=== PATIENT | male | born 1935 | race Caucasian/White ===

== ENCOUNTER 2016-12-13 08:00 | Outpatient (CLI) | payer MEDICARE, OTHER | END 2016-12-13 08:01 | disposition home or self-care (01) | DX: I25.10 Atherosclerotic heart disease of native coronary artery without angina pectoris (principal); E11.65 Type 2 diabetes mellitus with hyperglycemia; Z79.899 Other long term (current) drug therapy ==

== ENCOUNTER 2017-01-13 11:33 | Outpatient (CLI) | payer MEDICARE, OTHER | END 2017-01-13 11:34 | disposition home or self-care (01) | DX: J44.9 Chronic obstructive pulmonary disease, unspecified (principal) ==

== ENCOUNTER 2017-03-03 12:05 | Outpatient (CLI) | payer MEDICARE, OTHER | END 2017-03-03 12:06 | disposition home or self-care (01) | DX: M51.36 Other intervertebral disc degeneration, lumbar region (principal); M47.816 Spondylosis without myelopathy or radiculopathy, lumbar region ==

== ENCOUNTER 2017-06-05 09:19 | Outpatient (CLI) | payer MEDICARE, OTHER ==
[2017-06-05 12:06] LABS: HEMOGLOBIN A1C 0.7 g/dL
== END 2017-06-05 09:20 | disposition home or self-care (01) ==
LOC: LAB.R 09:19
PROVIDERS: ATTEND Internal Medicine
DX: E11.9 Type 2 diabetes mellitus without complications (principal); Z79.899 Other long term (current) drug therapy
CPT/HCPCS: 83036

== ENCOUNTER 2017-12-19 08:00 | Outpatient (CLI) | payer MEDICARE, OTHER | END 2017-12-19 08:01 | disposition home or self-care (01) | LOC: LAB.R 08:00 | PROVIDERS: ATTEND Internal Medicine | DX: I25.10 Atherosclerotic heart disease of native coronary artery without angina pectoris (principal) | CPT/HCPCS: 84484 ==

== ENCOUNTER 2018-01-01 08:00 | Outpatient (CLI) | payer MEDICARE, OTHER ==
[2018-01-01 14:50] LABS: BASOPHILS % (AUTO) 0.5 %; EOSINOPHILS # (AUTO) 0.1 10^3/uL (0.0-0.7); EOSINOPHILS % (AUTO) 0.8 %; HGB - HEMOGLOBIN 14.2 g/dL (14.0-18.0); MEAN CORPUSCULAR HEMOGLOBIN 29.2 pg (27.0-31.0); MEAN CORPUSCULAR HGB CONC 33.8 g/dL (32.0-36.0); MEAN CORPUSCULAR VOLUME 86.4 fL (80.0-94.0); MONOCYTES # (AUTO) 0.5 10^3/uL (0.0-1.0); MONOCYTES % (AUTO) 6.5 %; NEUTROPHILS # (AUTO) 5.8 10^3/uL (1.5-6.6); NEUTROPHILS % (AUTO) 78.2 %; PLT - PLATELET COUNT 254 10^3/uL (130-450); RED BLOOD COUNT 4.86 10^6/uL (4.70-6.10); RED CELL DISTRIBUTION WIDTH 13.3 % (12.0-15.0); WHITE BLOOD COUNT 7.4 x10^3/uL (4.8-10.8)
[2018-01-01 15:01] LABS: ALBUMIN 4.3 g/dL (3.2-5.5); ALBUMIN/GLOBULIN RATIO 1.5 (1.0-2.2); ALKALINE PHOSPHATASE 50 IU/L (42-121); ALT ALANINE AMINOTRANSFERASE 16 IU/L (10-60); AST ASPARTATE AMINOTRANSFERASE 23 IU/L (10-42); BUN - BLOOD UREA NITROGEN 17 mg/dL (6-20); CALCIUM 9.2 mg/dL (8.5-10.3); CARBON DIOXIDE - CO2 27 mmol/L (21-32); CHLORIDE 99 mmol/L (101-111); CHOLESTEROL 145 mg/dL; CREATININE 1.1 mg/dL (0.6-1.2); GFR - MDRD 64 (>89); GLUCOSE 143 mg/dL (70-100); HDL CHOLESTEROL 71 mg/dL; LDL CHOLESTEROL,CALCULATED 55 mg/dL; LDL/HDL RATIO 0.8 (<3.6); SODIUM 136 mmol/L (135-145); TOTAL PROTEIN 7.1 g/dL (6.7-8.2); VLDL CHOLESTEROL 19 mg/dL
[2018-01-01 15:34] LABS: HB2 TOTAL 16.3 g/dL; HEMOGLOBIN A1C 0.8 g/dL; HEMOGLOBIN A1C % 6.6 % (4.6-6.2)
== END 2018-01-01 08:01 | disposition home or self-care (01) ==
LOC: LAB.R 08:00
PROVIDERS: ATTEND Internal Medicine
DX: E11.9 Type 2 diabetes mellitus without complications (principal); I10 Essential (primary) hypertension; I25.10 Atherosclerotic heart disease of native coronary artery without angina pectoris; Z79.899 Other long term (current) drug therapy
CPT/HCPCS: 80053; 80061; 83036; 83721; 85025

== ENCOUNTER 2018-01-29 08:46 | Outpatient (CLI) | payer MEDICARE, OTHER ==
[2018-01-29] MEDS: ADENOSINE 60 MG/20 ML VIAL IVP ONE ×2 (11:00→11:47)
--- NOTE | 2018-01-29 13:46 | CARDIAC PROCEDURE NOTE ---
DATE OF SERVICE: 01/29/2018 Physician: BRIAN Callahan PLEASE REVIEW BLANK AREAS - HAD BEEN FLAGGED TO VERIFY "PVC & PVC ECTOPY" AT FIRST BLANK, (ONE NEED TO BE PAC?) REFERENCED PAC'S & PVC BOTH IN FINAL IMPRESSION AREA PRIMARY CARE PHYSICIAN: Dr. Patricio Jean WOOD FLOUR MILLER: Dr. Rony Patel PROCEDURE: Pharmacologic cardiac stress test. PROCEDURE SYMPTOMS: Chest pain and shortness of air. CARDIAC RISK FACTORS INCLUDE: Known coronary artery disease. CLINICAL HISTORY: An 82-year-old male with known coronary artery disease and coronary stents. He denies any current symptoms. There were no medications held. INITIAL RESTING VITAL SIGNS: BP 134/64, heart rate 57, height 71 inches, weight 157 pounds, BMI 21.9. PROCEDURE AND FINDINGS: Patient identity and date verified, consent signed, pharmaceutical check. Pharmacologic stress testing was performed with adenosine at a dose of 140 mcg/kg/min over 6 minutes. The heart rate increased to 80 beats per minute from the infusion. Blood pressure response was normal during the stress procedure. The patient developed mild infusion related symptoms, which include flushing, brief shoulder and chest pain. The symptoms resolved spontaneously. The resting ECG demonstrated normal sinus rhythm with no ST changes and nonspecific T-wave changes. Maximal ST-segment depression with stress was zero. There was rare PVC and PAC ectopy. FINAL IMPRESSIONS 1. Negative electrocardiogram for ischemia in the setting of vasodilator stress. 2. Nondiagnostic stress test for angina. 3. Rare premature atrial contractions and premature ventricular contractions. 4. Await myocardial perfusion report. TD: 01/29/2018 12:00 FATIMAH
[2018-01-29 16:44] VITALS: BP 134/64
--- NOTE | 2018-01-30 08:39 | Nuclear Medicine Report ---
EXAM: SINGLE-ISOTOPE PHARMACOLOGICAL STRESS TEST WITH ADENOSINE. SINGLE-ISOTOPE AND SAME-DAY REST/STRESS MY OCARDIAL PERFUSION SCANS WITH TOMOGRAPHIC IMAGING, QUANTITATIVE ANALYSIS, WALL MOTION ANALYSIS AND CA LCULATION OF EJECTION FRACTION. EXAM DATE: 01/29/2018 02:05 PM. CLINICAL HISTORY: CAD. COMPARISON: None. TECHNIQUE: Following the intravenous administration of 9.5 mCi of Tc-99m sestamibi, a rest myocardial perfusion scan was done with tomography. Motion correction was applied when appropriate. After a delay of several hours on the same day, a pharmacological stress was performed with the infus ion of 60 mg of adenosine. According to protocol, 40.8 mCi of Tc-99m sestamibi was injected for stres s myocardial perfusion scan. Stress myocardial perfusion was done with tomography without attenuation correction. Motion correction was applied when appropriate. Gated tomographic images were obtained for wall motion analysis and computation of left ventricular ejection fraction. FINDINGS: No convincing fixed or reversible perfusion defects are evident. No focal wall motion abnormalities are evident. The left ventricular end-diastolic volume is 78 cc. The left ventricular end-systolic volume is 26 cc . The left ventricular ejection fraction is calculated to be 66%. IMPRESSION: 1. No scintigraphic findings to indicate myocardial ischemia. Negative for infarct. 2. Normal left ventricular ejection fraction of 66%. 3. Normal segmental and global wall motion. 4. Normal left ventricular cavity size, no change with stress. [facility] Referring Provider Line: [phone] SITE ID: [id number]
== END 2018-01-29 08:47 | disposition home or self-care (01) ==
LOC: DI 08:46
PROVIDERS: ATTEND Internal Medicine
DX: I25.10 Atherosclerotic heart disease of native coronary artery without angina pectoris (principal)
CPT/HCPCS: 78452; 93017; A9500; J0153

== ENCOUNTER 2019-04-15 08:08 | Outpatient (CLI) | payer MEDICARE, OTHER ==
[2019-04-15 08:34] LABS: BASOPHILS # (AUTO) 0.1 10^3/uL (0.0-0.1); BASOPHILS % (AUTO) 1.3 %; EOSINOPHILS # (AUTO) 0.1 10^3/uL (0.0-0.7); EOSINOPHILS % (AUTO) 1.8 %; HGB - HEMOGLOBIN 12.6 g/dL (14.0-18.0); LYMPHOCYTES # (AUTO) 1.1 10^3/uL (1.5-3.5); MEAN CORPUSCULAR HEMOGLOBIN 27.1 pg (27.0-31.0); MEAN CORPUSCULAR HGB CONC 32.7 g/dL (32.0-36.0); MEAN PLATELET VOLUME 7.9 fL (7.4-11.4); MONOCYTES # (AUTO) 0.5 10^3/uL (0.0-1.0); MONOCYTES % (AUTO) 8.3 %; NEUTROPHILS # (AUTO) 4.6 10^3/uL (1.5-6.6); NEUTROPHILS % (AUTO) 71.6 %; PLT - PLATELET COUNT 235 10^3/uL (130-450); RED BLOOD COUNT 4.64 10^6/uL (4.70-6.10); RED CELL DISTRIBUTION WIDTH 15.4 % (12.0-15.0); WHITE BLOOD COUNT 6.5 x10^3/uL (4.8-10.8)
[2019-04-15 08:51] LABS: ALBUMIN/GLOBULIN RATIO 1.3 (1.0-2.2); ALKALINE PHOSPHATASE 50 IU/L (42-121); ALT ALANINE AMINOTRANSFERASE 15 IU/L (10-60); AST ASPARTATE AMINOTRANSFERASE 19 IU/L (10-42); BILIRUBIN,TOTAL 1.3 mg/dL (0.2-1.0); BUN - BLOOD UREA NITROGEN 19 mg/dL (6-20); CALCIUM 9.4 mg/dL (8.5-10.3); CARBON DIOXIDE - CO2 27 mmol/L (21-32); CHLORIDE 102 mmol/L (101-111); CHOLESTEROL 158 mg/dL; CREATININE 1.1 mg/dL (0.6-1.2); GFR - MDRD 64 (>89); GLUCOSE 139 mg/dL (70-100); HDL CHOLESTEROL 78 mg/dL; LDL CHOLESTEROL,CALCULATED 65 mg/dL; LDL/HDL RATIO 0.8 (<3.6); SODIUM 138 mmol/L (135-145); TOTAL PROTEIN 7.1 g/dL (6.7-8.2); VLDL CHOLESTEROL 15 mg/dL
[2019-04-15 08:52] LABS: HB2 TOTAL 13.2 g/dL; HEMOGLOBIN A1C 0.72 g/dL; HEMOGLOBIN A1C % 7.1 % (4.6-6.2)
== END 2019-04-15 08:09 | disposition home or self-care (01) ==
LOC: LAB 08:08
PROVIDERS: ATTEND Family Medicine
DX: E11.8 Type 2 diabetes mellitus with unspecified complications (principal); K21.9 Gastro-esophageal reflux disease without esophagitis; I10 Essential (primary) hypertension; I25.10 Atherosclerotic heart disease of native coronary artery without angina pectoris
CPT/HCPCS: 36415; 80053; 80061; 83036; 83721; 84443; 85025

== ENCOUNTER 2019-08-18 14:08 | Outpatient (CLI) | payer MEDICARE, OTHER ==
--- NOTE | 2019-08-19 15:58 | XRAY Report ---
Reason: DYSPNEA Procedure Date: 08/18/2019 Accession Number: [id number] / [id number] Procedure: [facility] - Chest 2 View X-Ray CPT Code: 07565 FULL RESULT: EXAM: CHEST RADIOGRAPHY EXAM DATE: 08/18/2019 02:29 PM. CLINICAL HISTORY: Dyspnea. COMPARISON: CHEST 2 VIEW PA/LAT 01/13/2017 12:01 PM. TECHNIQUE: 2 views. FINDINGS: Lungs/Pleura: There is moderate to severe emphysema in the lungs bilaterally, slightly to mildly worsening since last exam. In the lateral view, there is again a nodular opacity, 1.3 cm in diameter in the anterior mid to lower lung zone superimposed with a shadow, unchanged and cannot be well seen in the PA view. No new focal opacities evident. No pleural effusion. No pneumothorax. Mediastinum: Heart and mediastinal contours are unremarkable. Other: There are chronic mild to severe compression fractures at T8, T9, T10, T11, greater at the T9, no significant interval changes. IMPRESSION: 1. Moderate to severe emphysema in the lungs, COPD, bilaterally, worsening since last exam; negative for new pulmonary opacity or acute cardiopulmonary process. 2. No significant interval changes of the prior nodular opacity, 1.3 cm, only visible in the lateral view, in the right middle lobe or in the lingula, versus a chest wall nodule; if clinically warranted, further assessment by chest CT without IV contrast is recommended. [facility]
== END 2019-08-18 23:59 | disposition home or self-care (01) ==
LOC: DI.WCP 14:08
PROVIDERS: ATTEND Family Medicine
DX: J43.9 Emphysema, unspecified (principal); R91.8 Other nonspecific abnormal finding of lung field
CPT/HCPCS: 71046

== ENCOUNTER 2019-10-26 08:02 | Outpatient (CLI) | payer MEDICARE, OTHER ==
[2019-10-26 08:41] LABS: BASOPHILS % (AUTO) 0.6 %; EOSINOPHILS # (AUTO) 0.2 10^3/uL (0.0-0.7); HGB - HEMOGLOBIN 12.1 g/dL (14.0-18.0); LYMPHOCYTES # (AUTO) 1.5 10^3/uL (1.5-3.5); LYMPHOCYTES % (AUTO) 21.6 %; MEAN CORPUSCULAR HEMOGLOBIN 26.7 pg (27.0-31.0); MEAN CORPUSCULAR HGB CONC 30.7 g/dL (32.0-36.0); MEAN CORPUSCULAR VOLUME 86.8 fL (80.0-94.0); MEAN PLATELET VOLUME 10.1 fL (7.4-11.4); MONOCYTES # (AUTO) 0.6 10^3/uL (0.0-1.0); NEUTROPHILS # (AUTO) 4.6 10^3/uL (1.5-6.6); NEUTROPHILS % (AUTO) 65.7 %; PLT - PLATELET COUNT 279 10^3/uL (130-450); RED BLOOD COUNT 4.54 10^6/uL (4.70-6.10); RED CELL DISTRIBUTION WIDTH 14.3 % (12.0-15.0)
[2019-10-26 09:11] LABS: ALBUMIN 4.4 g/dL (3.2-5.5); ALBUMIN/GLOBULIN RATIO 1.5 (1.0-2.2); ALKALINE PHOSPHATASE 57 IU/L (42-121); ALT ALANINE AMINOTRANSFERASE 15 IU/L (10-60); AST ASPARTATE AMINOTRANSFERASE 18 IU/L (10-42); BILIRUBIN,TOTAL 1.1 mg/dL (0.2-1.0); BUN - BLOOD UREA NITROGEN 26 mg/dL (6-20); CALCIUM 9.3 mg/dL (8.5-10.3); CARBON DIOXIDE - CO2 27 mmol/L (21-32); CHLORIDE 101 mmol/L (101-111); CHOL/HDL RATIO 2.1 (<5.0); CHOLESTEROL 144 mg/dL; CREATININE 1.3 mg/dL (0.6-1.2); GFR - MDRD 52 (>89); GLUCOSE 149 mg/dL (70-100); HDL CHOLESTEROL 69 mg/dL; LDL CHOLESTEROL,CALCULATED 62 mg/dL; LDL/HDL RATIO 0.9 (<3.6); SODIUM 138 mmol/L (135-145); TOTAL PROTEIN 7.4 g/dL (6.7-8.2); VLDL CHOLESTEROL 13 mg/dL
[2019-10-26 09:22] LABS: HB2 TOTAL 12.7 g/dL; HEMOGLOBIN A1C 0.66 g/dL; HEMOGLOBIN A1C % 6.9 % (4.6-6.2)
== END 2019-10-26 08:03 | disposition home or self-care (01) ==
LOC: LAB 08:02
PROVIDERS: ATTEND Family Medicine
DX: E11.49 Type 2 diabetes mellitus with other diabetic neurological complication (principal); G47.33 Obstructive sleep apnea (adult) (pediatric); I10 Essential (primary) hypertension; I25.10 Atherosclerotic heart disease of native coronary artery without angina pectoris; Z79.899 Other long term (current) drug therapy
CPT/HCPCS: 36415; 80053; 80061; 83036; 83721; 84443; 85025

== ENCOUNTER 2019-12-18 23:09 | Outpatient (CLI) | payer MEDICARE, OTHER | END 2019-12-18 23:10 | disposition critical access hospital (66) | LOC: EMS 23:09 | PROVIDERS: ATTEND Surgery | DX: R56.9 Unspecified convulsions (principal); R41.82 Altered mental status, unspecified | CPT/HCPCS: A0425; A0427 ==

== ENCOUNTER 2019-12-18 23:22 | Inpatient (IN) | payer MEDICARE, OTHER ==
--- NOTE | 2019-12-18 23:32 | ED Physician Documentation ---
History of Present Illness - Stated complaint Stated Complaint: SZ - Chief complaint Chief Complaint: Neuro - History obtained from History obtained from: Family, EMS (The patient's 84-year-old male who is unresponsive but he is breathing and has a pulse brought in by EMS EMS and the patient's report that tonight he had an episode in bed where he sat up and then started shaking violently the reports that he did urinate himself she denies any falls or trauma denies any history of previous similar episodes she is unsure if he is anticoagulated or not she denies any history of headaches rashes or seizures. The remainder the history is unknown.) Review of Systems Unable to obtain: Unresponsive PD PAST MEDICAL HISTORY - Past Medical History Cardiovascular: Hypertension, High cholesterol, Coronary artery disease, Angina Endocrine/Autoimmune: Type 2 diabetes GI: GERD HEENT: Glaucoma Musculoskeletal: Other - Past Surgical History Cardiovascular: Coronary stent HEENT: Cataracts - Present Medications Home Medications: Ambulatory Orders Medication Instructions Recorded Confirmed Aspirin [Aspir 81] 81 mg ORAL DAILY 12/13/14 12/18/19 Enalapril [Vasotec] 10 mg ORAL DAILY 12/13/14 12/18/19 Hydrochlorothiazide 25 mg ORAL DAILY 12/13/14 12/18/19 Omeprazole 20 mg ORAL DAILY 12/13/14 12/18/19 Pravastatin Sodium 40 mg ORAL QPM 12/13/14 12/18/19 metFORMIN [Glucophage] 750 mg ORAL BID 12/13/14 12/18/19 - Allergies Allergies/Adverse Reactions: Allergies Allergy/AdvReac Type Severity Reaction Status Date / Time No Known Drug Allergies Allergy Verified 12/13/14 12:02 PD ED PE NORMAL - Vitals Vital signs reviewed: Yes - General General: Other (Unresponsive, does not follow commands no obvious signs of trauma) - HEENT HEENT: Atraumatic, PERRL, EOMI, Ears normal, Pharynx benign - Neck Neck: Supple, no meningeal sign, No bony TTP, Thyroid normal, No JVD, No bruit - Cardiac Cardiac: RRR, No murmur - Respiratory Respiratory: Clear bilaterally - Abdomen Abdomen: Normal bowel sounds, Soft, Non tender, Non distended - Back Back: No CVA TTP, No spinal TTP - Derm Derm: Normal color, Warm and dry, No rash - Extremities Extremities: No deformity, No tenderness to palpate, No edema - Neuro Neuro: Other (The patient is unresponsive he does respond To voice, he will follow basic commands but he is confused he is unable to answer the appropriate date or time or place but he does know his name.) Eye Opening: To Voice Motor: Obeys Commands Verbal: Confused GCS Score: 13 - Psych Psych: Normal mood, Normal affect Results - Vitals Vitals: Vital Signs - 24 hr 12/18/19 12/19/19 23:30 00:05 Temperature 36.9 C Heart Rate 76 86 Respiratory 20 28 H Rate Blood Pressure 183/91 H 160/89 H O2 Saturation 97 97 Oxygen O2 Source Nasal cannula Oxygen Flow Rate 2 - EKG (time done) 23:29 Rate: Other (EKG shows a rate of 75 OK interval 200 QRS 82 QTC 449 P waves are upright in leads I to III inverted in aVR there is no OK depression elevation in leads to aVR respectively normal axis poor R wave progression no acute ST segment elevation or depression no biphasic T waves no shortened OK are intervals otherwise its nonspecific EKG.) - Labs Labs: Laboratory Tests 12/19/19 12/19/19 12/19/19 00:17 00:29 00:29 WBC 10.9 H RBC 4.14 L Hgb 11.3 L Hct 36.3 L MCV 87.7 MCH 27.3 MCHC 31.1 L RDW 14.0 Plt Count 221 MPV 10.2 Neut # (Auto) 8.2 H Lymph # (Auto) 1.1 L [place] # (Auto) 0.5 Eos # (Auto) 1.0 H Baso # (Auto) 0.0 Absolute Nucleated RBC 0.00 Nucleated RBC % 0.0 PT 12.1 INR 1.1 APTT 27.5 Sodium Potassium Chloride Carbon Dioxide Anion Gap BUN Creatinine Estimated GFR (MDRD) Glucose Lactic Acid Calcium Phosphorus Magnesium Total Bilirubin AST ALT Alkaline Phosphatase Total Creatine Kinase Troponin I High Sens B-Natriuretic Peptide Total Protein Albumin Globulin Albumin/Globulin Ratio Lipase TSH Urine Color YELLOW Urine Clarity CLEAR Urine pH 6.0 Ur Specific [place] 1.015 Urine Protein 30 H Urine Glucose (UA) NEGATIVE Urine Ketones NEGATIVE Urine Occult Blood MODERATE H Urine Nitrite NEGATIVE Urine Bilirubin NEGATIVE Urine Urobilinogen 0.2 (NORMAL) Ur Leukocyte Esterase NEGATIVE Urine RBC 11-25 H Urine WBC 0-3 Ur Squamous Epith Cells RARE Squamous Urine Bacteria Rare Ur Microscopic Review INDICATED Urine Culture Comments NOT INDICATED Salicylates Urine Opiates Screen NEGATIVE Ur Oxycodone Screen NEGATIVE Urine Methadone Screen NEGATIVE Ur Propoxyphene Screen NEGATIVE Acetaminophen Ur Barbiturates Screen NEGATIVE Ur Tricyclics Screen NEGATIVE Ur Phencyclidine Scrn NEGATIVE Ur Amphetamine Screen NEGATIVE U Methamphetamines Scrn NEGATIVE U Benzodiazepines Scrn NEGATIVE Urine Cocaine Screen NEGATIVE U Cannabinoids Screen NEGATIVE Ethyl Alcohol 12/19/19 12/19/19 12/19/19 00:29 00:29 00:29 WBC RBC Hgb Hct MCV MCH MCHC RDW Plt Count MPV Neut # (Auto) Lymph # (Auto) [place] # (Auto) Eos # (Auto) Baso # (Auto) Absolute Nucleated RBC Nucleated RBC % PT INR APTT Sodium 136 Potassium 4.1 Chloride 104 Carbon Dioxide 17 L Anion Gap 15.0 H BUN 17 Creatinine 1.4 H Estimated GFR (MDRD) 48 L Glucose 184 H Lactic Acid 7.4 H* Calcium 9.0 Phosphorus 2.8 Magnesium 1.9 Total Bilirubin 0.9 AST 25 ALT 14 Alkaline Phosphatase 52 Total Creatine Kinase 37 Troponin I High Sens B-Natriuretic Peptide 249 H Total Protein 6.3 L Albumin 3.8 Globulin 2.5 Albumin/Globulin Ratio 1.5 Lipase 37 TSH Urine Color Urine Clarity Urine pH Ur Specific [place] Urine Protein Urine Glucose (UA) Urine Ketones Urine Occult Blood Urine Nitrite Urine Bilirubin Urine Urobilinogen Ur Leukocyte Esterase Urine RBC Urine WBC Ur Squamous Epith Cells Urine Bacteria Ur Microscopic Review Urine Culture Comments Salicylates < 6.0 Urine Opiates Screen Ur Oxycodone Screen Urine Methadone Screen Ur Propoxyphene Screen Acetaminophen < 10 L Ur Barbiturates Screen Ur Tricyclics Screen Ur Phencyclidine Scrn Ur Amphetamine Screen U Methamphetamines Scrn U Benzodiazepines Scrn Urine Cocaine Screen U Cannabinoids Screen Ethyl Alcohol < 5.0 12/19/19 12/19/19 00:29 00:29 WBC RBC Hgb Hct MCV MCH MCHC RDW Plt Count MPV Neut # (Auto) Lymph # (Auto) [place] # (Auto) Eos # (Auto) Baso # (Auto) Absolute Nucleated RBC Nucleated RBC % PT INR APTT Sodium Potassium Chloride Carbon Dioxide Anion Gap BUN Creatinine Estimated GFR (MDRD) Glucose Lactic Acid Calcium Phosphorus Magnesium Total Bilirubin AST ALT Alkaline Phosphatase Total Creatine Kinase Troponin I High Sens 11.3 B-Natriuretic Peptide Total Protein Albumin Globulin Albumin/Globulin Ratio Lipase TSH 2.11 Urine Color Urine Clarity Urine pH Ur Specific [place] Urine Protein Urine Glucose (UA) Urine Ketones Urine Occult Blood Urine Nitrite Urine Bilirubin Urine Urobilinogen Ur Leukocyte Esterase Urine RBC Urine WBC Ur Squamous Epith Cells Urine Bacteria Ur Microscopic Review Urine Culture Comments Salicylates Urine Opiates Screen Ur Oxycodone Screen Urine Methadone Screen Ur Propoxyphene Screen Acetaminophen Ur Barbiturates Screen Ur Tricyclics Screen Ur Phencyclidine Scrn Ur Amphetamine Screen U Methamphetamines Scrn U Benzodiazepines Scrn Urine Cocaine Screen U Cannabinoids Screen Ethyl Alcohol PD MEDICAL DECISION MAKING - ED course Complexity details: other (I had a lengthy discussion with the patient's and other family members Regarding the patient's test results and the plan for admission here I spoke with the hospitalist Dr. Alberta Hernandez who Graciously agreed to admit this patient.) - Critical Care Time(min): 30 Time Includes: Direct patient care, Review records, Reassess patient, Document care, Coordinate care, Medical consult, Family consult for tx dec Data interpretation: Labs, Pulse ox, CXR, Prior EKG Procedures included in critical care time: Peripheral IV, Blood draw Procedures excluded from critical care time: EKG Departure - Departure Disposition: 66 [facility] DC/Xfer Clinical Impression: Seizure, Altered mental status, Seizures Condition: Fair
[2019-12-18] MEDS ORDERED: levETIRAcetam INJ 1,500 MG in SODIUM CHLORIDE 0.9% 100ML 100 ML IV STA (23:35)
[2019-12-18] MEDS ORDERED: SODIUM CHLORIDE 0.9% 1,000 ML IV ONE (23:35)
[2019-12-18] MEDS ORDERED: LORazepam 2 MG/ML VIAL ONE (23:58)
[2019-12-19] MEDS ORDERED: LORazepam 2 MG/ML VIAL IVP STA (00:10)
--- NOTE | 2019-12-19 00:16 | XRAY Report ---
Reason: AMS Procedure Date: 12/19/2019 Accession Number: [id number] / [id number] Procedure: XR - Chest 1 View X-Ray CPT Code: 59279 Final Report FULL RESULT: EXAM: CHEST RADIOGRAPHY EXAM DATE: 12/18/2019 11:50 PM. CLINICAL HISTORY: Altered mental status. Multiple falls. COMPARISON: CHEST 2 VIEW 08/18/2019 2:08 PM. TECHNIQUE: 1 view. FINDINGS: Lungs/Pleura: No focal opacities evident. No pleural effusion. No pneumothorax. Mediastinum: Within exam limitations, the cardiomediastinal contour is normal. Other: No fracture identified. IMPRESSION: Normal single view chest. [facility]
--- NOTE | 2019-12-19 00:18 | CT Report ---
Reason: AMS Procedure Date: 12/19/2019 Accession Number: [id number] / [id number] Procedure: CT - HEAD WO CPT Code: Final Report FULL RESULT: EXAM: CT HEAD EXAM DATE: 12/18/2019 11:58 PM. CLINICAL HISTORY: Altered mental status. History of multiple falls. COMPARISON: None. TECHNIQUE: Multiaxial CT images were obtained from the foramen magnum to the vertex. Reformats: Sagittal and coronal. IV contrast: None. In accordance with CT protocol optimization, one or more of the following dose reduction techniques were utilized for this exam: automated exposure control, adjustment of mA and/or KV based on patient size, or use of iterative reconstructive technique. FINDINGS: Parenchyma: No intraparenchymal hemorrhage. No evidence of mass, midline shift, or CT findings of infarction. Medel-white differentiation is distinct. There is mild to moderate chronic microvascular change in the periventricular white matter. Extraaxial Spaces: There is age appropriate generalized cerebral volume loss. No subdural or epidural collections identified. Ventricles: Mild ventricular prominence is in proportion to degree of atrophy. No definite hydrocephalus. Sinuses and Orbits: Imaged paranasal sinuses, orbits, and mastoids show no significant abnormality. Bones: No evidence of fracture or calvarial defect. Other: None. IMPRESSION: 1. No acute intracranial abnormality. 2. No intracranial mass, mass-effect, or hydrocephalus. 3. Age-appropriate senescent changes. [facility]
[2019-12-19 00:23] LABS: BILIRUBIN,URINE NEGATIVE (NEGATIVE); GLUCOSE, URINE (UA) NEGATIVE (NEGATIVE); KETONES,URINE (UA) NEGATIVE (NEGATIVE); LEUKOCYTE ESTERASE, URINE NEGATIVE (NEGATIVE); MUDS CUTOFF CONCENTRATIONS CUTOFF CONC BELOW:; NITRITE,URINE NEGATIVE (NEGATIVE); OCCULT BLOOD,URINE MODERATE (NEGATIVE); PROTEIN,URINE 30 mg/dL (NEGATIVE); UROBILINOGEN,URINE 0.2 (NORMAL) E.U./dL (NORMAL)
[2019-12-19 00:27] LABS: CLARITY,URINE CLEAR (CLEAR)
[2019-12-19 00:29] LABS: SQUAMOUS EPITHELIAL CELL,UR RARE Squamous (<= Few)
[2019-12-19 00:30] LABS: BACTERIA,URINE Rare /HPF (None Seen)
[2019-12-19 00:33] LABS: AMPHETAMINE SCREEN,URINE NEGATIVE (NEGATIVE); BENZODIAZEPINES SCREEN, URINE NEGATIVE (NEGATIVE); COCAINE SCREEN URINE NEGATIVE (NEGATIVE); METHADONE SCREEN, URINE NEGATIVE (NEGATIVE); METHAMPHETAMINES SCREEN, URINE NEGATIVE (NEGATIVE); OPIATE SCREEN, URINE NEGATIVE (NEGATIVE); OXYCODONE SCREEN, URINE NEGATIVE (NEGATIVE); PROPOXYPHENE SCREEN, URINE NEGATIVE (NEGATIVE); TRICYCLIC ANTIDEPRESSANT,URINE NEGATIVE (NEGATIVE)
[2019-12-19 00:37] LABS: BASOPHILS % (AUTO) 0.4 %; EOSINOPHILS % (AUTO) 8.8 %; HGB - HEMOGLOBIN 11.3 g/dL (14.0-18.0); LYMPHOCYTES # (AUTO) 1.1 10^3/uL (1.5-3.5); MEAN CORPUSCULAR HEMOGLOBIN 27.3 pg (27.0-31.0); MEAN CORPUSCULAR HGB CONC 31.1 g/dL (32.0-36.0); MEAN CORPUSCULAR VOLUME 87.7 fL (80.0-94.0); MEAN PLATELET VOLUME 10.2 fL (7.4-11.4); MONOCYTES # (AUTO) 0.5 10^3/uL (0.0-1.0); MONOCYTES % (AUTO) 4.7 %; NEUTROPHILS # (AUTO) 8.2 10^3/uL (1.5-6.6); NEUTROPHILS % (AUTO) 75.3 %; PLT - PLATELET COUNT 221 10^3/uL (130-450); RED BLOOD COUNT 4.14 10^6/uL (4.70-6.10); WHITE BLOOD COUNT 10.9 x10^3/uL (4.8-10.8)
[2019-12-19 00:42] LABS: INR 1.1 (0.8-1.2); PT - PROTHROMBIN TIME 12.1 secs (9.9-12.6)
[2019-12-19 00:49] LABS: PARTIAL THROMBOPLASTIN TIME 27.5 secs (24.9-33.3)
[2019-12-19 00:50] LABS: ACETAMINOPHEN < 10 ug/mL (10-30); ALBUMIN 3.8 g/dL (3.2-5.5); ALBUMIN/GLOBULIN RATIO 1.5 (1.0-2.2); ALKALINE PHOSPHATASE 52 IU/L (42-121); ALT ALANINE AMINOTRANSFERASE 14 IU/L (10-60); AST ASPARTATE AMINOTRANSFERASE 25 IU/L (10-42); BILIRUBIN,TOTAL 0.9 mg/dL (0.2-1.0); BUN - BLOOD UREA NITROGEN 17 mg/dL (6-20); CARBON DIOXIDE - CO2 17 mmol/L (21-32); CHLORIDE 104 mmol/L (101-111); CK- CREATINE KINASE 37 IU/L (22-269); CREATININE 1.4 mg/dL (0.6-1.2); GFR - MDRD 48 (>89); GLUCOSE 184 mg/dL (70-100); LIPASE 37 U/L (22-51); MAGNESIUM 1.9 mg/dL (1.7-2.8); PHOSPHORUS 2.8 mg/dL (2.5-4.6); SALICYLATE < 6.0 mg/dL; SODIUM 136 mmol/L (135-145); TOTAL PROTEIN 6.3 g/dL (6.7-8.2)
[2019-12-19] MEDS ORDERED: ACETAMINOPHEN 325 MG TABLET PO PRN (01:09)
[2019-12-19] MEDS ORDERED: SODIUM CHLORIDE FLUSH 0.9% 10 ML SYRINGE IVP PRN (01:09)
[2019-12-19] MEDS ORDERED: ONDANSETRON ODT 4 MG TABLET TL PRN (01:09)
[2019-12-19] MEDS ORDERED: ONDANSETRON 4 MG/2 ML VIAL IVP PRN (01:09)
[2019-12-19] MEDS ORDERED: amLODIPine 5 MG TABLET PO STA (01:11)
--- NOTE | 2019-12-19 01:16 | HISTORY & PHYSICAL EXAMINATION ---
Chief Complaint - Chief Complaint Chief Complaint: seizure at home History of Present Illness - Admitted From Admitted From:: Home/ER - History Obtained From [facility] History obtained from: Dr. Palma Exam Limitations: he is confused, sedated - History of Present Illness HPI Comment/Other: This is an elderly gentleman who lives in his own home with his and is hard of hearing, has diabetes, and age-related cognitive decline but now presents with new onset seizures tonight. He had 2 seizures at home.He was described as shaking and incontinent of urine. And then he had another seizure in the CT scanner here in our hospital and was witnessed. His last visit with his primary care provider was November 04, 2019. That complaint was "sleeping all the time". He then had a fall on that did not require intervention but had an MRI of the lumbar spine done December 13. He had severe L4-L5 central canal stenosis with compression of the nerve roots on the cauda equina. Severe right and moderate to severe left L4-L5 neural foraminal narrowing with slight compression of the exiting bilateral L4 nerve roots.His and son both describe a relatively sharp decline over the last month. Ever since he fell on , he is just not been himself mentally. Although they have noticed that he has been sleepier, less mobile over the last 6 months, this last month has been very noticeable. They usually take 3 [address] walks on the [place] in [place] on a daily basis. They stopped about a month and a half ago when the weather in the rain got too severe. This week he tried to walk a quarter of a mile down to their mailbox and back and he just could not make it. He was just exhausted. He has had less and less appetite this month. He is probably down to about 152 or 153 pounds from his usual 160 pounds. For the last 2 days has had increasing confusion. The family notices that he is trying to eat with incorrect utensils. Or he missed naming items. Seems more and more silent with less and less verbal skills per the .There is no antecedent fever, chills. He has no new medications. No headaches, etc. He did have diarrhea yesterday a couple of times. He was evaluated by in the emergency room and was afebrile at 36.9. Blood pressure mildly elevated at 183/91. 97% oxygen saturation on 2 L nasal cannula. He was sinus rhythm on telemetry. He was unresponsive, was not able to follow commands. Then he went to the CT scanner and had another dose of benzodiazepine. CT scan of the head shows no acute intracranial abnormality, no intracranial mass/mass-effect/hydrocephalus. Age-appropriate senescent changes. He does respond to voice and follow basic commands but he is confused and disoriented. He does know his name. White cell count is elevated at 10.9. No bandemia. Electrolytes have mild elevation of creatinine at 1.4. Baseline is 1.1 and down to 0.9. Lactic acid is 7.4 on a patient has had seizures and is on metformin. Random glucose is 184. Troponin is 11. BNP 249. TSH 2.11. Urinalysis had moderate occult blood, red cells, but no infection. Tox screen is negative As such the patient is now placed in observation to make sure that Keppra continues to be loaded, and he has no further seizures. History - Past Medical History Cardiovascular: reports: Hypertension, High cholesterol, Coronary artery disease (Unstable angina with drug-eluting stent to mid LAD December 23, 2012. Drug- eluting stent to proximal left circumflex June 29, 2013. Normal left ventricular ejection fraction by echo December 2012 at 55%. Ventricular ectopy with occasional ventricular triplets. He is followed by Rony Patel at [facility] in [place].), Deep vein thrombosis (Left leg), Angina Respiratory: reports: COPD (He was told this by Dr. kenny to get him to stop smoking. But he does not take oxygen or inhalers on a regular basis. Spiriva was tried last fall and is not being used.) Neuro: reports: Other (Cognitive decline) Endocrine/Autoimmune: reports: Type 2 diabetes (A1c 6.9% in October. On metformin. No neuropathy, macular degeneration.Creatinine 0.9-1.1.) GI: reports: GERD : reports: Benign prostate hypertrophy, Nocturia, Frequency HEENT: reports: Chronic vision loss, Glaucoma Psych: reports: None Musculoskeletal: reports: Osteoarthritis, Other (Right hip/buttock pain for several months starting in 2019. 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 Bladder stone removal.) Cardiovascular: reports: Coronary stent (Stent to LAD November 2012. Proximal left circumflex stent June 2013.) HEENT: reports: Cataracts (Left eye. Did not do well postoperatively. Still has cataract right eye) - Family & Social History Family History Comment/Other: Did not know his father very well. Cannot tell you his history. Mom had Alzheimer's at the end. Sister is alive and well with osteoporosis. 1 son has diabetes and atherosclerotic heart disease. 1 son is healthy With borderline diabetes As is the third son. Living arrangement: At home Living Situation: With spouse/s.o. Social History Notes: He smoked a pack a day until 1959. Started the age of 13. Did chew tobacco and then pipe tobacco after that.No history of alcohol ab use. to his for 67 years now. They met when she was a jian in high school. He worked at a [employer], [employer]. - Substance History Use: Uses substance without health or social issues: NONE Abuse: Recurrent use of substance despite neg consequences: NONE Dependence: Experiences withdrawal or developed tolerances: NONE - POLST Patient has POLST: No POLST Status: DNR (In his chart in the office there is a statement from April 2017 that he is not to receive any artificial life support. confirms this and says that there is paperwork at home that he wants to be DO NOT RESUSCITATE.) Meds/Allgy - Home Medications Home Medications: Ambulatory Orders Medication Instructions Recorded Confirmed Aspirin [Aspir 81] 81 mg ORAL DAILY 12/13/14 12/18/19 Enalapril [Vasotec] 10 mg ORAL DAILY 12/13/14 12/18/19 Hydrochlorothiazide 25 mg ORAL DAILY 12/13/14 12/18/19 Omeprazole 20 mg ORAL DAILY 12/13/14 12/18/19 Pravastatin Sodium 40 mg ORAL QPM 12/13/14 12/18/19 metFORMIN [Glucophage] 750 mg ORAL BID 12/13/14 12/18/19 - Allergies Allergies/Adverse Reactions: Allergies Allergy/AdvReac Type Severity Reaction Status Date / Time No Known Drug Allergies Allergy Verified 12/13/14 12:02 Review of Systems - Constitutional Constitutional: reports: Fatigue, Poor appetite (Reported by in the last few months but he denies this.), Other (Sleeping more more, especially after meals.Weight is stable. He weighs 158-160 pounds this last year. He weighed 163 pounds in 2018.) - Eyes Eyes: reports: Blurred vision, Vision loss, Corrective lenses, Other (Has cataract in one eye.He has to make sure he is watching the ground carefully. Things such as going on and off a curb or on and off the sidewalk are difficult for him because of transition and depth perception.) - Ears, Nose & Throat Ears, Nose & Throat: reports: Hearing loss, Hearing aids (But he does not like to wear them.). denies: Vertigo, Nasal pain, Sore throat, Hoarseness - Cardiovascular Cariovascular: denies: Irregular heart rate, Palpitations, Chest pain, Edema - Respiratory Respiratory: reports: Cough (Back last fall in 2019 he had a chest x-ray, EKG for this cough. Nothing was found. Spiriva as needed use.), Apnea (Reported by . He has been referred to sleep center and has not had a study yet.). denies: Sputum production, Wheezing, SOB at rest, SOB with exertion - Gastrointestinal Gastrointestinal: denies: Abdominal pain, Abdominal distention - Genitourinary Genitourinary: reports: Frequency, Urgency, Nocturia - Musculoskeletal Musculoskeletal: reports: Back pain, Muscle aches, Stiffness. denies: Muscle pain - Integumentary Integumentary: denies: Rash, Pruritis, Lesions - Neurological Neurological: reports: Memory problems. denies: General weakness, Focal weakness, Headache, Dizziness - Psychiatric Psychiatric: reports: Other (Described as a highly suspicious individual.In the last month is gotten very fatalistic. He has been telling his [id number] that he is tired. Every day has become more of a struggle.). denies: Depression, Anxiety - Endocrine Endocrine: reports: Intolerance to cold (Over the last month his hands and feet have been very cold and he has been complaining more more of that.). denies: Polyuria, Polydypsia - Hematologic/Lymphatic Hematologic/Lymphatic: denies: Anemia, Bruising Prior Level of Functionality: Described as independent, still able to feed himself dress himself.However stop letting him drive over a year ago. She just did not trust his alertness anymore. They were still taking walks up until August 2019. Appetite has diminished over the last 2 months. Sleeping more over the last 3 months. Just an overall gradual cognitive and physical decline. Exam - Vital Signs Reviewed Vital Signs: Yes Vital Signs: Vital Signs x48h Temp Pulse Resp BP Pulse Ox 12/19/19 00:05 86 28 H 160/89 H 97 12/18/19 23:30 36.9 C 76 20 183/91 H 97 - Physical Exam General Appearance: positive: Other (Asleep, snoring. Responds to my voice by squinting his eyes, furrowed brow, and definitely opens his eyes to a sternal rub but is nonverbal.Elderly white male, mild cachexia. Bilateral temporal wasting, and diffuse lack of muscle mass.) Eyes Bilateral: positive: PERRL (After I opened up his eyelids) ENT: positive: Dry mucous membranes Neck: positive: No JVD. negative: Stiff neck, Carotid bruit Respiratory: positive: Chest non-tender. negative: Wheezes, Rales, Rhonchi Cardiovascular: positive: Regular rate & rhythm, Systolic murmur. negative: Gallop/S4, Friction rub Peripheral Pulses: positive: 0, Other (Ankles will a little bit of mottling around the malleoli. Very cold feet. Very cold hands.) Abdomen: positive: Non-tender, No organomegaly, Nml bowel sounds, No distention. negative: Guarding, Rebound Skin: positive: Warm, Dry, Pallor Extremities: positive: Non-tender, Nml appearance, No pedal edema Neurologic/Psychiatric: positive: Other (Responsive to sternal rub. This spontaneously uses hands to pull at the sheets, flex and extend at the knees and roll over in bed to make himself more comfortable. Uncomfortable with my ex amination of his feet and withdraw his feet and flex at the hip to bring his legs out of my reach.) Conclusion/Plan - Problem List (1) Seizure Conclusion/Plan: This is a new diagnosis for this gentleman. Had 2 at home and 1 here at our hospital. There is no toxic metabolic encephalopathy that would cause this seen on labs. He has no new medications and no medications that would lower his seizure threshold. He is not having any arrhythmias on EKG or telemetry. There is no evidence of infection other than an elevated white cell count. He is afebrile, chest x-ray is negative, abdominal exam is negative, and urinalysis is negative. Possibility of stroke is high in this elderly gentleman who already has coronary artery disease.The description of this cognitive and functional decline over the last few months these me to believe he may be having small multiple infarcts that are not visible on CT of the head. Plan: Observation status MRI if possible tomorrow. However, if it is not able to be done, we will schedule him in the outpatient setting as well as referral to neurology, etc. Family is very accepting of the possibility of his decline, causing in the near future. They are thinking of focusing only on palliative measures. (2) Type 2 diabetes mellitus with complication, without long-term current use of insulin Conclusion/Plan: Sliding scale insulin before meals. We will hold on metformin because of lactic acidosis. (3) Lactic acidosis Conclusion/Plan: Due to seizures, metformin use. Dehydration. At this time there is no evidence of sepsis with infection. Plan: Hold metformin Repeat lactic acid after fluids, (4) Hypertension Conclusion/Plan: With his last doctor visit, hydrochlorothiazide was stopped because of a rising creatinine from 0.9->1.1->1.3 on labs. We will continue enalapril here. Give one-time dose of amlodipine to bring his blood pressure down. Qualifiers: Hypertension type: essential hypertension Qualified Code(s): I10 - Essential (primary) hypertension (5) Cognitive decline Conclusion/Plan: Combined with functional decline. Family is sad. But excepting and fatalistic. He is already been telling his [id number] that he is tired on a daily basis now. He is ready to be done was "all of this". (6) Do not resuscitate status Conclusion/Plan: states she will bring in the advance directives that she has at home. She says that Dr. Hood's office should have copy of 7 as well. - Lab Results Lab results reviewed: Yes Fish Bones: 12/19/19 00:29 12/19/19 00:29 - Diagnostic Imaging Results Diagnostic Imaging Results: positive: Final report reviewed Diagnostic Imaging Results Comments: Chest x-ray with a normal single view chest and no acute cardiopulmonary changes. Head CT shows signs of senescence, mild ventricular enlargement, but nothing to show why he would have had a seizure. - EKG Results EKG Interpreted Independently: No EKG Comparison: Unchanged from prior EKG EKG Findings: Normal sinus rhythm. Low limb lead voltage. Normal R wave progression. No acute ST-T wave changes. Occasional PVC. Core Measures - Anticipated LOS I expect patient to be DC'd or transferred within 96 hours.: Yes - DVT/VTE - Prophylaxis VTE/DVT Device ordered at admit?: Yes
[2019-12-19] MEDS: INSULIN REGULAR HUMAN 300 UNIT/3 ML VIAL SUBQ SCH ×3 (07:00→17:09)
--- NOTE | 2019-12-19 07:08 | PHARMACY PROGRESS NOTE ---
- Best Possible Medication History Admit Date and Time: 12/19/19 0109 Processed by: Pharmacy Medication History completed: Yes Patient Interview: Pt unable to participate Secondary Source(s): Physician records, Pharmacy records, Insurance records As the person ultimately responsible for medication therapy, providers are able to order a medication from an existing home medication list in [facility] via the "Reconcile Routine" prior to Confirmation of that medication by arch support technician. Such practice is discouraged except when the physician, in their clinical judgment, deems that a medical need exists for a medication without regard to previous use.
[2019-12-19] MEDS: ENALAPRIL 5 MG TABLET PO SCH (09:26)
[2019-12-19] MEDS: levETIRAcetam INJ 500 MG in SODIUM CHLORIDE 0.9% 100ML 100 ML IV SCH ×2 (09:26→20:54)
[2019-12-19] MEDS: SODIUM CHLORIDE FLUSH 0.9% 10 ML SYRINGE IVP SCH ×2 (10:01→17:08)
[2019-12-19 14:39] LABS: CALCIUM 8.9 mg/dL (8.5-10.3); CREATININE 1.2 mg/dL (0.6-1.2)
[2019-12-19] MEDS: SODIUM CHLORIDE 0.9% 1,000 ML IV SCH (15:03)
[2019-12-20] MEDS: INSULIN REGULAR HUMAN 300 UNIT/3 ML VIAL SUBQ SCH ×2 (00:31→06:26)
[2019-12-20] MEDS: SODIUM CHLORIDE FLUSH 0.9% 10 ML SYRINGE IVP SCH ×4 (01:18→23:56)
[2019-12-20] MEDS: SODIUM CHLORIDE 0.9% 1,000 ML IV SCH (04:39)
--- NOTE | 2019-12-20 08:40 | PROVIDER PROGRESS NOTE ---
Subjective - Prog Note Date Prog Note Date: 12/20/19 Prog Note Time: 08:40 - Subjective Pt reports feeling: No change Subjective: Joey offers no complaints, and cannot express his needs to myself or nursing staff at times, appears agitated at times. The patient has been in bed on seizure precautions since admission. Family has arrived and is at the bedside. Palliative care meeting with Michelle Liu is for today at 1PM. Current Medications - Current Medications Current Medications: Active Medications: Acetaminophen (Tylenol) 650 mg PO Q4HR PRN Aspirin (Cosme) 325 mg PO DAILYWM [facility] Atorvastatin Calcium (Lipitor) 80 mg PO QPM [facility] Enalapril Maleate (Vasotec) 10 mg PO DAILY [facility] Levetiracetam 500 mg/ Sodium (Chloride) 105 mls @ 400 mls/hr IV BID [facility] Ondansetron HCl (Zofran Inj) 4 mg IVP Q6HR PRN Ondansetron HCl (Zofran Odt) 4 mg TL Q6HR PRN Senna (Senokot) 8.6 - 17.2 mg PO DAILY [facility] Home meds: Aspirin [Aspir 81] 81 mg ORAL DAILY 12/13/14 Enalapril [Vasotec] 10 mg ORAL DAILY 12/13/14 Omeprazole 20 mg ORAL DAILY 12/13/14 Pravastatin Sodium 40 mg ORAL QPM 12/13/14 metFORMIN [Glucophage] 750 mg ORAL BID 12/13/14 Objective - Vital Signs/Intake & Output Reviewed Vital Signs: Yes Vital Signs: Vital Signs x48h Temp Pulse Resp BP BP Pulse Ox 12/20/19 07:41 36.4 C L 59 L 16 159/109 H 94 12/20/19 04:41 37.3 C 55 L 18 153/87 H 94 Intake & Output: Intake & Output 12/17/19 12/18/19 12/19/19 12/20/19 23:59 23:59 23:59 23:59 Intake Total 1325 1000 Balance 1325 1000 - Objective General Appearance: positive: Alert, Moderate distress, Anxious Eyes Bilateral: positive: No lid inflammation Eyes: OU Conjunctivae pale, OU Other (dry crusty eye drainage) ENT: positive: Pharyngeal erythema, Dry mucous membranes Neck: positive: No JVD, Trachea midline, Stiff neck Respiratory: positive: Chest non-tender, No respiratory distress, Other (diminished with scattered crackles bilaterally) Cardiovascular: positive: Regular rate & rhythm, No gallop, Bradycardia, S ystolic murmur, Decreased pulse(s) Peripheral Pulses: 1+ Radial (R), 1+ Radial (L) Abdomen: positive: Non-tender, Nml bowel sounds Back: positive: Nml inspection Skin: positive: No rash, Warm, Dry, Other (bronze toned skin) Extremities: positive: Non-tender, Full ROM, No pedal edema Neurologic/Psychiatric: positive: Disoriented to person, Disoriented to place, Disoriented to time, Weakness, Sensory loss, Slurred/abnml speech (nearly absent speech, rare 3 word sentances since being in the hospital), Depressed mood/affect Reflexes: Bicep (R): 3+, Bicep (L): 3+, Ankle (R): 3+, Ankle (L): 3+ - Lab Results Fish Bones: 12/19/19 00:29 12/19/19 14:24 Other Labs: Lab Results x24hrs 12/19/19 12/19/19 12/19/19 Range/Units 14:24 14:24 14:24 Sodium 140 (135-145) mmol/L Potassium 4.1 (3.5-5.0) mmol/L Chloride 105 (101-111) mmol/L Carbon Dioxide 26 (21-32) mmol/L Anion Gap 9.0 (6-13) BUN 16 (6-20) mg/dL Creatinine 1.2 (0.6-1.2) mg/dL Estimated GFR (MDRD) 57 L (>89) Glucose 118 H (70-100) mg/dL Lactic Acid 1.0 (0.5-2.2) mmol/L Calcium 8.9 (8.5-10.3) mg/dL Total Creatine Kinase 68 (22-269) IU/L - Diagnostic Imaging Diagnostic Imaging Results: positive: Final report reviewed ABX Reporting Has patient been on IV antibiotics over the past 48 hours?: No Assessment/Plan - Problem List (1) Seizure Impression: -Tonic/clonic, first witnessed by his at home in which he displayed full body convulsions, and was yelling out for at least 1 full minute -No new medications and no medications that would lower his seizure threshold noted -No cardiac arrhythmias on EKG or telemetry -No evidence of infection -Likely due to stroke with risk factors including; age, sex, history of CAD, DM -Head CT did not show any bleeding or strokes -Head MRI also confirms no acute infarcts, hemorrhage or mass lesion -Head MRI is notable for moderate white matter changes, consistent with sequelae of chronic small vessel ischemic disease, ventricles are moderately enlarged, consistent with cerebral volume loss -Continues on IV keppra since he is not readily taking PO due to lethargy, confusion Weight loss -Family notes that the patient has had a sharp decline over the past month -He has lost about 6-8 lbs in the past month -Current BMI is 21.5, admitting weight 72 kg TIA -Loss of speech, changes in ambulation, altered mental status were presenting symptoms, along with acute seizures -MRI of the head is negative for strokes -Continue full dose aspirin, statin, await Palliative care meeting Diastolic dysfunction, CHF -Found on preliminary echo from today; Grade II, EF 60-65% -No indication for rate control as heart rates have been 60-70s Pulmonary hypertension -Preliminary echo today shows RVSP at rest of 51 mmHg -Unknown history of sleep apnea -Diuretic therapy is indicated using Spironolactone, unless family chooses comfort cares Type 2 diabetes mellitus with complications -No long-term current use of insulin -Sliding scale insulin before meals, now stopped -Blood sugars have been 95-107 -No more blood sugar checks -A1C is pending Lactic acidosis -Due to seizures, metformin & dehydration -Home metformin on hold -Initial lactic acid was 7.5, repeat lactic acid was normal at 1.0 -Monitor for infection Hypertension -PCP had stopped hydrochlorothiazide due to rising creatinine from 0.9->1.1->1.3 -One time dose of amlodipine was given -B/P today was elevated at 159/109 -No acute stroke today, so enalapril has been continued Dementia -Cognitive and functional decline -Patient has been telling his [id number] that he is tired on a daily basis now and he is ready to be done was "all of this" -Head MRI is notable for moderate white matter changes, consistent with sequelae of chronic small vessel ischemic disease, ventricles are moderately enlarged, consistent with cerebral volume loss -Await Palliative care meeting Falls -The patient's family states that the patient fell on , and just prior to coming into the ED and prior to his seizure -Head imaging confirms no hemorrhage or stroke -Suspect this all relates to his advanced dementia Do not resuscitate status - states she will bring in the advance directives that she has at home -Dr. Keene's office should have copy -Await palliative care meeting today
[2019-12-20] MEDS ORDERED: ASPIRIN 300 MG SUPP PR SCH (09:00)
[2019-12-20] MEDS: ENALAPRIL 5 MG TABLET PO SCH ×2 (09:55→19:04)
[2019-12-20] MEDS: levETIRAcetam INJ 500 MG in SODIUM CHLORIDE 0.9% 100ML 100 ML IV SCH ×2 (09:55→20:20)
[2019-12-20] MEDS ORDERED: LORazepam 2 MG/ML VIAL IVP ONE (10:00)
--- NOTE | 2019-12-20 10:04 | MRI Report ---
Reason: CVA, mental status changes Procedure Date: 12/20/2019 Accession Number: [id number] / [id number] Procedure: MRI - Brain W/O CPT Code: Final Report FULL RESULT: EXAM: MRI BRAIN WITHOUT CONTRAST EXAM DATE: 12/20/2019 09:46 AM. CLINICAL HISTORY: 84-year-old man with altered mental status, recent falls, and seizures yesterday morning. COMPARISON: HEAD W/O 12/18/2019 11:58 PM. TECHNIQUE: Multiplanar, multisequence T1-weighted and fluid-sensitive MR sequences of the brain were performed. Sequences optimized for routine evaluation. Other: None. IV Contrast: None. FINDINGS: Parenchyma: No evidence of acute infarct on diffusion weighted sequence. The parenchyma demonstrates moderate burden of nonspecific FLAIR hyperintensities in the deep cerebral and periventricular white matter, most consistent with sequelae of chronic small vessel ischemic disease and a common finding in this age group. No evidence of prior hemorrhage on susceptibility weighted sequence. Pituitary: Unremarkable. Ventricles and Extra-axial Spaces: Ventricles are moderately enlarged but out of proportion to sulcal enlargement, consistent with central cerebral volume loss at the upper limits of normal for age or normal pressure hydrocephalus. Extra-axial spaces are otherwise unremarkable. Orbits: Unremarkable except for left-sided lens replaced in surgery. Sinuses: Paranasal sinuses and mastoid air cells are clear. Major Vascular Flow Voids: Intact. IMPRESSION: 1. No acute intracranial abnormality. Specifically, no evidence of acute infarct, hemorrhage, or mass lesion. 2. Moderate white matter changes, most consistent with sequelae of chronic small vessel ischemic disease and a common finding in this age group. 3. Ventricles are moderately enlarged, consistent with central cerebral volume loss at the upper limits of normal for age or normal pressure hydrocephalus. RADIA
[2019-12-20] MEDS: SENNA 8.6 MG TABLET PO SCH ×2 (10:47→20:43)
[2019-12-20 12:02] LABS: BASOPHILS % (AUTO) 0.4 %; EOSINOPHILS # (AUTO) 0.2 10^3/uL (0.0-0.7); EOSINOPHILS % (AUTO) 2.8 %; HGB - HEMOGLOBIN 11.2 g/dL (14.0-18.0); LYMPHOCYTES # (AUTO) 1.1 10^3/uL (1.5-3.5); LYMPHOCYTES % (AUTO) 13.1 %; MEAN CORPUSCULAR HEMOGLOBIN 27.4 pg (27.0-31.0); MEAN CORPUSCULAR HGB CONC 32.1 g/dL (32.0-36.0); MEAN CORPUSCULAR VOLUME 85.3 fL (80.0-94.0); MEAN PLATELET VOLUME 9.8 fL (7.4-11.4); MONOCYTES # (AUTO) 0.7 10^3/uL (0.0-1.0); MONOCYTES % (AUTO) 8.1 %; NEUTROPHILS # (AUTO) 6.1 10^3/uL (1.5-6.6); NEUTROPHILS % (AUTO) 75.2 %; PLT - PLATELET COUNT 204 10^3/uL (130-450); RED BLOOD COUNT 4.09 10^6/uL (4.70-6.10); RED CELL DISTRIBUTION WIDTH 13.6 % (12.0-15.0); WHITE BLOOD COUNT 8.1 x10^3/uL (4.8-10.8)
[2019-12-20] MEDS: ASPIRIN 325 MG TABLET PO SCH (12:02)
[2019-12-20 12:41] LABS: ALBUMIN 3.6 g/dL (3.2-5.5); ALBUMIN/GLOBULIN RATIO 1.4 (1.0-2.2); BILIRUBIN,TOTAL 1.9 mg/dL (0.2-1.0); CALCIUM 8.6 mg/dL (8.5-10.3); CREATININE 1.1 mg/dL (0.6-1.2); TOTAL PROTEIN 6.1 g/dL (6.7-8.2)
[2019-12-20 12:43] LABS: HB2 TOTAL 11.5 g/dL; HEMOGLOBIN A1C 0.55 g/dL; HEMOGLOBIN A1C % 6.5 % (4.6-6.2)
[2019-12-20 12:49] LABS: CHOL/HDL RATIO 2.1 (<5.0); CHOLESTEROL 115 mg/dL; HDL CHOLESTEROL 56 mg/dL; LDL CHOLESTEROL,CALCULATED 46 mg/dL; LDL/HDL RATIO 0.8 (<3.6); VLDL CHOLESTEROL 13 mg/dL
[2019-12-20] MEDS ORDERED: FUROSEMIDE 40 MG TABLET PO SCH (16:16)
[2019-12-20] MEDS ORDERED: MIN OIL/DIMETHICON/COCONUT OIL 92 GM TUBE TOP PRN (16:38)
--- NOTE | 2019-12-20 17:48 | CONSULTATION NOTE ---
Palliative Care Consultation - Referral Referring Provider: Angela TORRES Time of Visit: [id number] Referral setting: Hospitalized patient Referral Reason: FTT/dementia/Seizures - Information Sources Records reviewed: Previous records reviewed History/Review of Systems obtained from: Family ( Kasie; Son Koby and SIVAKUMAR Valdovinos; Son John and SIVAKUMAR Peguero) Exam limitations: Clinical condition (patient moderately confused; unable to participate in ROS/HX) - History of Present Illness Brief History of Present Illness: This is a 84-year-old gentleman who was admitted with seizures on 12/19, he has been having worsening neuro symptoms for several weeks, and overall decline for several months. reports has had difficulty with speech, word finding, which is continue to worsen over 2 weeks, patient on examination is able to answer short sentences, but does seem confused to her some place and time. Unclear if he understands he is in the hospital, but does know that something is wrong. In review of patient's history, looking backwards, they do see several episodes of intermittent confusion, most likely attributed to TIAs, he does not have any acute findings on his MRI, nor anything to explain his seizures other than progressive dementia. Patient actually has been fairly functional, up to August, with walking up to three miles a day. He had a fall on , and in workup he presented with worsening back pain, he was scheduled to get a steroid shot as he does have severe L4-L5 central canal stenosis with compression of the nerve roots on the cauda equina found on an MRI. Patient has been sleeping more, patient has had weight loss, though children are concerned this has less to do with appetite and more to do with his limiting his intake or not meeting his needs. Palliative care to meet with family regarding goals of care, and expressed concerns by children regarding whether they will be able to manage at home with his decline in functional and cognitive status.The children saw him at Thanksgiving, and feel his is much more frail and declining, can see changes, but most acutely over the last couple of weeks. It does sound like his care needs have been increasing, and she has been experiencing some caregiver fatigue. Medical/Surgical History - Past Medical History Cardiovascular: reports: Hypertension, High cholesterol, Coronary artery disease, Deep vein thrombosis, Angina Respiratory: reports: COPD (He was told this by Dr. jean to get him to stop smoking. But he does not take oxygen or inhalers on a regular basis. Spiriva was tried last fall and is not being used.) Neuro: Dementia, TIA, Seizure disorder Endocrine/Autoimmune: reports: Type 2 diabetes GI: reports: GERD : reports: Benign prostate hypertrophy, Nocturia, Frequency HEENT: reports: Chronic vision loss, Glaucoma, Chronic hearing loss (won't wear hearing aids) Psych: reports: Depression Musculoskeletal: reports: Osteoarthritis, Chronic back pain MRSA Hx?: No Other Past Medical History: Shingles - Past Surgical History General: reports: Other Ortho: reports: Hip replacement /[employer]PER[employer]: reports: Other Cardiovascular: reports: Coronary stent HEENT: reports: Cataracts - Substance History Use: Uses substance without health or social issues: NONE Abuse: Recurrent use of substance despite neg consequences: NONE Dependence: Experiences withdrawal or developed tolerances: NONE Social History - Living Situation Living arrangement: At home Living Situation: With spouse/s.o. Support System: Patient and have been managing at home but with increasing difficulty. Patient had been independent up to this point in time, now requires a 2 person assist. He has had increasing trouble with vision, recently broke his glasses, he is hard of hearing, and will not wear his hearing aids. He is at baseline walks with a walking stick, he is left-handed. His mobility has continued to decline, and more acutely over the last several weeks. [place], and he their house with wood heat. Patient has had his most acute decline with his hip replacement surgery a little over a year ago. He has been having increased difficulty with incontinence and his escalating pain has impacted his functional status as well. Family History - Family History Family History: Mother: , Alzheimer's Disease, Father: , Other family: Alive and Well (3 sons) Medications/Allergies - Medications Active Medication List: Active Medications Acetaminophen (Tylenol) 650 mg PO Q4HR PRN PRN Reason: Pain 1 to 4 Aspirin (Cosme) 325 mg PO DAILY[facility] Last Admin: 12/20/19 12:02 Dose: 325 mg Atorvastatin Calcium (Lipitor) 80 mg PO QPM [facility] Enalapril Maleate (Vasotec) 10 mg PO DAILY [facility] Last Admin: 12/20/19 09:55 Dose: 10 mg Furosemide (Lasix) 40 mg PO DAILY [facility] Last Admin: 12/20/19 16:46 Dose: 40 mg Levetiracetam 500 mg/ Sodium (Chloride) 105 mls @ 400 mls/hr IV BID [facility] Last Infusion: 12/20/19 10:52 Dose: Infused Mineral Oil (Cavilon) 1 applic TOP PRN PRN PRN Reason: Skin Care Ondansetron HCl (Zofran Inj) 4 mg IVP Q6HR PRN PRN Reason: Nausea / Vomiting Ondansetron HCl (Zofran Odt) 4 mg TL Q6HR PRN PRN Reason: Nausea / Vomiting Senna (Senokot) 8.6 - 17.2 mg PO DAILY [facility] Last Admin: 12/20/19 10:47 Dose: Not Given Sodium Chloride (Normal Saline Flush 0.9%) 10 ml IVP PRN PRN PRN Reason: NEEDED PER PROVIDER ORDERS Sodium Chloride (Normal Saline Flush 0.9%) 10 ml IVP 0100,0900,1700 [facility] Last Admin: 12/20/19 16:47 Dose: 10 ml Aspirin [Aspir 81] 81 mg ORAL DAILY 12/13/14 Enalapril [Vasotec] 10 mg ORAL DAILY 12/13/14 Omeprazole 20 mg ORAL DAILY 12/13/14 Pravastatin Sodium 40 mg ORAL QPM 12/13/14 metFORMIN [Glucophage] 750 mg ORAL BID 12/13/14 - Allergies Allergies/Adverse Reactions: Allergies Allergy/AdvReac Type Severity Reaction Status Date / Time No Known Drug Allergies Allergy Verified 12/13/14 12:02 Review of Systems - Constitutional Constitutional: reports: Fatigue, Weakness, Weight loss. denies: Fever, Chills - Eyes Eyes: reports: Vision loss - Ears, Nose & Throat Ears, Nose & Throat: reports: Hearing loss, Hearing aids (doesn't wear) - Cardiovascular Cardiovascular: reports: Decr. exercise tolerance - Gastrointestinal Gastrointestinal: reports: Other ( reports poor intake; children concern she does not offer enough calories;) - Genitourinary Genitourinary: reports: Frequency (urinal at bedside baseline) - Musculoskeletal Musculoskeletal: reports: Back pain, Muscle aches, Stiffness, Limited range of motion, Muscle weakness, Other (needs PT/OT evaluation for functional status) - Integumentary Integumentary: reports: Dryness - Neurological Neurological: reports: General weakness, Memory problems, Seizures - Psychiatric Psychiatric: reports: Depression, Anxiety, Aggitation - Endocrine Endocrine: reports: Diabetes type 2 - All Other Systems All Other Systems: reports: Other (limited ROS) Physical Exam - Vital Signs Vital Signs: Vital Signs x48h Temp Pulse Resp BP BP Pulse Ox 12/20/19 15:57 56 L 18 190/81 H 12/20/19 15:36 36.6 C 56 L 18 182/68 H 94 12/20/19 12:51 36.7 C 54 L 18 190/74 H 96 - Physical Exam General Appearance: positive: Alert, Anxious Eyes Bilateral: positive: Normal inspection ENT: positive: No signs of dehydration Neck: positive: No JVD, Trachea midline Cardiovascular: positive: Regular rate & rhythm Respiratory: positive: No respiratory distress Abdomen: positive: Soft Skin: positive: Pallor, Dryness Neurologic/Psychiatric: positive: Disoriented to place, Disoriented to time, Weakness, Slurred/abnml speech, Depressed mood/affect, Flat affect Palliative Care - POLST Patient has POLST: Yes POLST Status: DNR (no available for review) Pain: Comment (patient laying flat; denies pain at time of visit; no recall about pain; seems anxious; reports pain with standing no with sitting) Feelings of wellbeing/Perceived Quality of Life: Poor, Worsening Performance Status: Has not been driving for over a year, though this was with intervention from his family. He actually has been quite ambulatory, up to these last few weeks. Currently he is bedbound, needs a 2 person assist for bed mobility. Patient does have sensory deficits including sight and hearing, does get quite easily agitated, will need PT OT evaluation to see current level of functioning. - Palliative Care Discussion: In agreement patient is continued to decline over this last year or 2, more acutely over the last several weeks. Report that his Shanique is cutting fire wood, they live on [place], and they heat with wood stove. If he could not do this this would be a decline in his quality of life, as is what he looks forward to. The other thing is gardening, he was unable to do his Gardens this last year because of his back and less engaged. Family does observe patient's frustration with feelings of worthlessness, has not wanted to be a burden, and feels that he is concerned about her and leaving her behind. She reports they did have a serious talk about 3 weeks ago, patient has been talking about things have been changing, feels he worries about the money, was told by their executive vice president and chief financial officer they had enough to live in the nursing homes [facility]. She is very adamant they have been 68 years, she does not want to put him in a shelter. She reports though he has been sitting mostly in his chair, more boredom, difficulty concentrating, and more difficulty with tracking and watching TV. She reports her mother had Alzheimer's, and does see his memory is declining, we did discuss most likely is a combination of vascular with his multiple TIAs mixed with Alzheimer's. Family are quite clear "life cannot continue as it is", they are worried about her being able to manage them at home, and what kind of care he might need. Counseling provided regarding the continuum of care including SNF until patient's functional status or "new normal" is defined. They would hire assistance, family is available to assist if patient does end up going home.Whether patient goes to SNF first, or discharges home, they are very interested in home health physical therapy and occupational therapy, for recommendations how to make it safer and how best to manage him in the home setting. And attempting to define goals of care, she does want him at home, particularly his transition to end-of-life. She is quite hopeful that we are "not there yet", we did discuss in weighing benefits and burdens of returning to the [facility] given patient's diminishing quality of life. They do have a POLST signed with Dr. Jean who was their primary care provider for 30 years, they are feeling somewhat adrift regarding this. We did discuss in the context of this to bring it in and we can revisit if it does align with her current goals. We discussed currently are somewhat in the "twilight zone" as were trying to discern what his current status is and residual deficits will be. Results - Lab Results Lab results reviewed: Yes Fish Bones: 12/20/19 11:52 12/20/19 11:52 Lab and Imaging Results: Lab Results x24hrs 12/20/19 12/20/19 12/20/19 Range/Units 11:52 11:52 11:52 WBC (4.8-10.8) x10^3/uL RBC (4.70-6.10) 10^6/uL Hgb (14.0-18.0) g/dL Hct (42.0-52.0) % MCV (80.0-94.0) fL MCH (27.0-31.0) pg MCHC (32.0-36.0) g/dL RDW (12.0-15.0) % Plt Count (130-450) 10^3/uL MPV (7.4-11.4) fL Neut # (Auto) (1.5-6.6) 10^3/uL Lymph # (Auto) (1.5-3.5) 10^3/uL [place] # (Auto) (0.0-1.0) 10^3/uL Eos # (Auto) (0.0-0.7) 10^3/uL Baso # (Auto) (0.0-0.1) 10^3/uL Absolute Nucleated RBC x10^3/uL Nucleated RBC % /100WBC Sodium (135-145) mmol/L Potassium (3.5-5.0) mmol/L Chloride (101-111) mmol/L Carbon Dioxide (21-32) mmol/L Anion Gap (6-13) BUN (6-20) mg/dL Creatinine (0.6-1.2) mg/dL Estimated GFR (MDRD) (>89) Glucose (70-100) mg/dL Glycated Hemoglobin 6.5 H (4.6-6.2) % Estim Average Glucose 140 H (70-100) Calcium (8.5-10.3) mg/dL Magnesium (1.7-2.8) mg/dL Total Bilirubin (0.2-1.0) mg/dL AST (10-42) IU/L ALT (10-60) IU/L Alkaline Phosphatase (42-121) IU/L B-Natriuretic Peptide 318 H (5-100) pg/mL Total Protein (6.7-8.2) g/dL Albumin (3.2-5.5) g/dL Globulin (2.1-4.2) g/dL Albumin/Globulin Ratio (1.0-2.2) Triglycerides 64 ( - 149) mg/dL Cholesterol 115 ( - 199) mg/dL LDL Cholesterol, Calc 46 ( - 129) mg/dL VLDL Cholesterol 13 mg/dL HDL Cholesterol 56 L (60 - ) mg/dL LDL/HDL Ratio 0.8 (<3.6) Cholesterol/HDL Ratio 2.1 (<5.0) 12/20/19 12/20/19 Range/Units 11:52 11:52 WBC 8.1 (4.8-10.8) x10^3/uL RBC 4.09 L (4.70-6.10) 10^6/uL Hgb 11.2 L (14.0-18.0) g/dL Hct 34.9 L (42.0-52.0) % MCV 85.3 (80.0-94.0) fL MCH 27.4 (27.0-31.0) pg MCHC 32.1 (32.0-36.0) g/dL RDW 13.6 (12.0-15.0) % Plt Count 204 (130-450) 10^3/uL MPV 9.8 (7.4-11.4) fL Neut # (Auto) 6.1 (1.5-6.6) 10^3/uL Lymph # (Auto) 1.1 L (1.5-3.5) 10^3/uL [place] # (Auto) 0.7 (0.0-1.0) 10^3/uL Eos # (Auto) 0.2 (0.0-0.7) 10^3/uL Baso # (Auto) 0.0 (0.0-0.1) 10^3/uL Absolute Nucleated RBC 0.00 x10^3/uL Nucleated RBC % 0.0 /100WBC Sodium 137 (135-145) mmol/L Potassium 3.8 (3.5-5.0) mmol/L Chloride 104 (101-111) mmol/L Carbon Dioxide 22 (21-32) mmol/L Anion Gap 11.0 (6-13) BUN 14 (6-20) mg/dL Creatinine 1.1 (0.6-1.2) mg/dL Estimated GFR (MDRD) 63 L (>89) Glucose 113 H (70-100) mg/dL Glycated Hemoglobin (4.6-6.2) % Estim Average Glucose (70-100) Calcium 8.6 (8.5-10.3) mg/dL Magnesium 2.0 (1.7-2.8) mg/dL Total Bilirubin 1.9 H (0.2-1.0) mg/dL AST 17 (10-42) IU/L ALT 12 (10-60) IU/L Alkaline Phosphatase 45 (42-121) IU/L B-Natriuretic Peptide (5-100) pg/mL Total Protein 6.1 L (6.7-8.2) g/dL Albumin 3.6 (3.2-5.5) g/dL Globulin 2.5 (2.1-4.2) g/dL Albumin/Globulin Ratio 1.4 (1.0-2.2) Triglycerides ( - 149) mg/dL Cholesterol ( - 199) mg/dL LDL Cholesterol, Calc ( - 129) mg/dL VLDL Cholesterol mg/dL HDL Cholesterol (60 - ) mg/dL LDL/HDL Ratio (<3.6) Cholesterol/HDL Ratio (<5.0) Impression and Recommendations - Palliative Care Impression: This is an 84-year-old gentleman who does present with symptoms vascular mixed with Alzheimer's dementia, cognitive and functional decline, worsening back pain and sequela related to this. The complexity of his current cognitive/physical status, as well as social situation, Has created the perfect storm and needing to come up with both a short-term and long-term plan for this elderly couple. Palliative care providing support regarding setting rapport, continuum of care, and attempting to define goals of care given the seriousness of his illness and ongoing decline Recommendations/Counseling Done: 1. Generalized weakness. This is multifactorial in origin, including recent acute decline, cognitive changes, as well as sequela of severe back pain and stenosis. Would recommend getting PT/OT evaluation in the context of his baseline status. Counseling provided regarding the continuum of care, including use of the SNF/rehab as a bridge before returning home. is somewhat skylar nt, tried to reframe this as a way to literally get him back on his feet if this is possible. Otherwise would recommend home physical PT/OT for strengthening and safety as it would be a taxing considerable effort for the patient to leave the home at this point in time to pursue services. 2. Weight loss. This appears multifactorial in origin as well, unclear if it is behavioral/cognitive or if there is some support for the concerns for the kids regarding patient being offered adequate calories. Recommendation for dietitian as well as follow-up from speech therapy for further nutritional eaton pport. 3. Dementia. In retrospect, family does see patient's ongoing cognitive decline. He does have short-term memory loss, poor executive functioning, word finding, difficulty with ADLs, and intermittent incontinence. Counseling provided regarding the trajectory of expected illness and education regarding dementia. 4. Advanced care planning. Family is concerned regarding the fragility of both patient and , counseling provided trying to tease out goals, support available, willingness to accept in-home support and care. Counseling provided regarding the spectrum of private hired caregivers versus IP versus agency. Family is actually available for short-term assistance until able to get a care plan in place, if insists on going home. Would recommend ongoing palliative care support, counseling provided regarding the continuum of care palliative versus hospice and transition at end-of-life to meet patient's goals for at home Time Spent: 75 minutes with greater than 50% of this done in counseling regarding continuum of care, goals of care, trajectory of illness, evaluation of current concerns and resources, and anticipatory guidance.
[2019-12-20] MEDS ORDERED: ATORVASTATIN 40 MG TABLET PO SCH (21:00)
[2019-12-21 08:41] LABS: BASOPHILS % (AUTO) 0.4 %; EOSINOPHILS # (AUTO) 0.1 10^3/uL (0.0-0.7); EOSINOPHILS % (AUTO) 0.7 %; HGB - HEMOGLOBIN 13.2 g/dL (14.0-18.0); LYMPHOCYTES # (AUTO) 0.7 10^3/uL (1.5-3.5); LYMPHOCYTES % (AUTO) 6.6 %; MEAN CORPUSCULAR HEMOGLOBIN 27.4 pg (27.0-31.0); MEAN CORPUSCULAR HGB CONC 33.2 g/dL (32.0-36.0); MEAN CORPUSCULAR VOLUME 82.6 fL (80.0-94.0); MEAN PLATELET VOLUME 10.4 fL (7.4-11.4); MONOCYTES # (AUTO) 0.7 10^3/uL (0.0-1.0); MONOCYTES % (AUTO) 6.6 %; NEUTROPHILS # (AUTO) 9.1 10^3/uL (1.5-6.6); NEUTROPHILS % (AUTO) 85.2 %; PLT - PLATELET COUNT 244 10^3/uL (130-450); RED BLOOD COUNT 4.82 10^6/uL (4.70-6.10); RED CELL DISTRIBUTION WIDTH 13.6 % (12.0-15.0); WHITE BLOOD COUNT 10.7 x10^3/uL (4.8-10.8)
[2019-12-21 08:55] LABS: CALCIUM 9.1 mg/dL (8.5-10.3); CREATININE 1.1 mg/dL (0.6-1.2)
[2019-12-21] MEDS ORDERED: GLIMEPIRIDE 2 MG TABLET PO SCH (09:00)
[2019-12-21] MEDS: SENNA 8.6 MG TABLET PO SCH (09:17)
[2019-12-21] MEDS: FUROSEMIDE 40 MG TABLET PO SCH (09:17)
[2019-12-21] MEDS: ASPIRIN 325 MG TABLET PO SCH (09:17)
[2019-12-21] MEDS: ENALAPRIL 5 MG TABLET PO SCH ×2 (09:17→19:09)
[2019-12-21] MEDS: levETIRAcetam INJ 500 MG in SODIUM CHLORIDE 0.9% 100ML 100 ML IV SCH (09:18)
[2019-12-21] MEDS: SODIUM CHLORIDE FLUSH 0.9% 10 ML SYRINGE IVP SCH ×2 (09:18→19:09)
[2019-12-21] MEDS ORDERED: POTASSIUM CHLORIDE 20 MEQ TABLET PO ONE (09:23)
[2019-12-21] MEDS ORDERED: hydrALAZINE INJ 20 MG/ML VIAL IVP PRN (11:03)
--- NOTE | 2019-12-21 11:06 | PROVIDER PROGRESS NOTE ---
Subjective - Prog Note Date Prog Note Date: 12/21/19 - Subjective Pt reports feeling: Improved Subjective: pt is comfortable sleeping at the bed then he wake up. pt's is at the bedside. she state pt has no complaints, pt has no seizure, and he did eat most of his breakfast. she wish pt can be d/c SNF first. Current Medications - Current Medications Current Medications: Active Medications Acetaminophen (Tylenol) 650 mg PO Q4HR PRN PRN Reason: Pain 1 to 4 Aspirin (Cosme) 325 mg PO DAILYWM [facility] Last Admin: 12/21/19 09:17 Dose: 325 mg Atorvastatin Calcium (Lipitor) 40 mg PO QPM [facility] Enalapril Maleate (Vasotec) 20 mg PO BIDWM [facility] Last Admin: 12/21/19 09:17 Dose: 20 mg Furosemide (Lasix) 20 mg PO DAILY [facility] Last Admin: 12/21/19 09:17 Dose: 20 mg Glimepiride (Amaryl) 1 mg PO DAILYWM [facility] Hydralazine HCl (Apresoline Inj) 10 mg IVP QID PRN PRN Reason: Hypertensive Emergency Levetiracetam (Keppra) 500 mg PO BID [facility] Mineral Oil (Cavilon) 1 applic TOP PRN PRN PRN Reason: Skin Care Ondansetron HCl (Zofran Inj) 4 mg IVP Q6HR PRN PRN Reason: Nausea / Vomiting Ondansetron HCl (Zofran Odt) 4 mg TL Q6HR PRN PRN Reason: Nausea / Vomiting Senna (Senokot) 8.6 - 17.2 mg PO DAILY [facility] Last Admin: 12/21/19 09:17 Dose: 8.6 mg Sodium Chloride (Normal Saline Flush 0.9%) 10 ml IVP PRN PRN PRN Reason: NEEDED PER PROVIDER ORDERS Sodium Chloride (Normal Saline Flush 0.9%) 10 ml IVP 0100,0900,1700 [facility] Last Admin: 12/21/19 09:18 Dose: 10 ml Aspirin [Aspir 81] 81 mg ORAL DAILY 12/13/14 Enalapril [Vasotec] 10 mg ORAL DAILY 12/13/14 Omeprazole 20 mg ORAL DAILY 12/13/14 Pravastatin Sodium 40 mg ORAL QPM 12/13/14 metFORMIN [Glucophage] 750 mg ORAL BID 12/13/14 Objective - Vital Signs/Intake & Output Reviewed Vital Signs: Yes Vital Signs: Vital Signs x48h Temp Pulse Resp BP Pulse Ox 12/21/19 07:49 36.5 C 72 16 166/111 H 95 12/21/19 05:23 174/86 H 12/21/19 05:18 36.5 C 73 18 182/93 H 98 Intake & Output: Intake & Output 12/18/19 12/19/19 12/20/19 12/21/19 23:59 23:59 23:59 23:59 Intake Total 1325 2496 345 Output Total 1555 850 Balance 1325 941 -505 - Objective General Appearance: positive: No acute distress, Alert. negative: Lethargic Eyes Bilateral: positive: Normal inspection, PERRL, No lid inflammation ENT: positive: ENT inspection nml, No signs of dehydration. negative: Purulent nasal drainage Neck: positive: Nml inspection, Thyroid nml, No JVD, Trachea midline. negative: Thyromegaly, Lymphadenopathy (R), Lymphadenopathy (L), Stiff neck, Tracheal deviation Respiratory: positive: Chest non-tender, No respiratory distress, Breath sounds nml. negative: Wheezes, Rales, Rhonchi Cardiovascular: positive: Regular rate & rhythm, No murmur, No gallop. negative: Irregularly irregular, Extrasystoles, Tachycardia, Bradycardia, JVD present, Systolic murmur, Diastolic murmur Peripheral Pulses: 2+ Radial (R), 2+ Radial (L), 2+ Dorsalis pedis (R), 2+ Dorsalis pedis (L) Abdomen: positive: Non-tender, No organomegaly, Nml bowel sounds, No distention. negative: Tenderness, Guarding, Rebound Back: positive: Nml inspection. negative: CVA tenderness (R), CVA tenderness (L) Skin: positive: Color nml, No rash, Warm, Dry. negative: Cyanosis, Diaphoresis, Pallor Extremities: positive: Non-tender, Full ROM, Nml appearance. negative: Calf tenderness, Vy's sign/cords Neurologic/Psychiatric: positive: Sensation nml, Mood/affect nml. negative: Weakness, Sensory loss, Facial droop, Slurred/abnml speech, Depressed mood/affe ct - Lab Results Fish Bones: 12/21/19 08:36 12/21/19 08:36 Other Labs: Lab Results x24hrs 12/21/19 12/21/19 12/21/19 Range/Units 08:36 08:36 08:36 WBC 10.7 (4.8-10.8) x10^3/uL RBC 4.82 (4.70-6.10) 10^6/uL Hgb 13.2 L (14.0-18.0) g/dL Hct 39.8 L (42.0-52.0) % MCV 82.6 (80.0-94.0) fL MCH 27.4 (27.0-31.0) pg MCHC 33.2 (32.0-36.0) g/dL RDW 13.6 (12.0-15.0) % Plt Count 244 (130-450) 10^3/uL MPV 10.4 (7.4-11.4) fL Neut # (Auto) 9.1 H (1.5-6.6) 10^3/uL Lymph # (Auto) 0.7 L (1.5-3.5) 10^3/uL [place] # (Auto) 0.7 (0.0-1.0) 10^3/uL Eos # (Auto) 0.1 (0.0-0.7) 10^3/uL Baso # (Auto) 0.0 (0.0-0.1) 10^3/uL Absolute Nucleated RBC 0.00 x10^3/uL Nucleated RBC % 0.0 /100WBC Sodium 135 (135-145) mmol/L Potassium 3.3 L (3.5-5.0) mmol/L Chloride 99 L (101-111) mmol/L Carbon Dioxide 23 (21-32) mmol/L Anion Gap 13.0 (6-13) BUN 19 (6-20) mg/dL Creatinine 1.1 (0.6-1.2) mg/dL Estimated GFR (MDRD) 63 L (>89) Glucose 219 H (70-100) mg/dL POC Whole Bld Glucose (70 - 100) mg/dL Glycated Hemoglobin (4.6-6.2) % Estim Average Glucose (70-100) Calcium 9.1 (8.5-10.3) mg/dL Magnesium (1.7-2.8) mg/dL Total Bilirubin (0.2-1.0) mg/dL AST (10-42) IU/L ALT (10-60) IU/L Alkaline Phosphatase (42-121) IU/L B-Natriuretic Peptide 303 H (5-100) pg/mL Total Protein (6.7-8.2) g/dL Albumin (3.2-5.5) g/dL Globulin (2.1-4.2) g/dL Albumin/Globulin Ratio (1.0-2.2) Triglycerides ( - 149) mg/dL Cholesterol ( - 199) mg/dL LDL Cholesterol, Calc ( - 129) mg/dL VLDL Cholesterol mg/dL HDL Cholesterol (60 - ) mg/dL LDL/HDL Ratio (<3.6) Cholesterol/HDL Ratio (<5.0) 12/20/19 12/20/19 12/20/19 Range/Units 11:52 11:52 11:52 WBC (4.8-10.8) x10^3/uL RBC (4.70-6.10) 10^6/uL Hgb (14.0-18.0) g/dL Hct (42.0-52.0) % MCV (80.0-94.0) fL MCH (27.0-31.0) pg MCHC (32.0-36.0) g/dL RDW (12.0-15.0) % Plt Count (130-450) 10^3/uL MPV (7.4-11.4) fL Neut # (Auto) (1.5-6.6) 10^3/uL Lymph # (Auto) (1.5-3.5) 10^3/uL [place] # (Auto) (0.0-1.0) 10^3/uL Eos # (Auto) (0.0-0.7) 10^3/uL Baso # (Auto) (0.0-0.1) 10^3/uL Absolute Nucleated RBC x10^3/uL Nucleated RBC % /100WBC Sodium (135-145) mmol/L Potassium (3.5-5.0) mmol/L Chloride (101-111) mmol/L Carbon Dioxide (21-32) mmol/L Anion Gap (6-13) BUN (6-20) mg/dL Creatinine (0.6-1.2) mg/dL Estimated GFR (MDRD) (>89) Glucose (70-100) mg/dL POC Whole Bld Glucose (70 - 100) mg/dL Glycated Hemoglobin 6.5 H (4.6-6.2) % Estim Average Glucose 140 H (70-100) Calcium (8.5-10.3) mg/dL Magnesium (1.7-2.8) mg/dL Total Bilirubin (0.2-1.0) mg/dL AST (10-42) IU/L ALT (10-60) IU/L Alkaline Phosphatase (42-121) IU/L B-Natriuretic Peptide 318 H (5-100) pg/mL Total Protein (6.7-8.2) g/dL Albumin (3.2-5.5) g/dL Globulin (2.1-4.2) g/dL Albumin/Globulin Ratio (1.0-2.2) Triglycerides 64 ( - 149) mg/dL Cholesterol 115 ( - 199) mg/dL LDL Cholesterol, Calc 46 ( - 129) mg/dL VLDL Cholesterol 13 mg/dL HDL Cholesterol 56 L (60 - ) mg/dL LDL/HDL Ratio 0.8 (<3.6) Cholesterol/HDL Ratio 2.1 (<5.0) 12/20/19 12/20/19 12/20/19 Range/Units 11:52 11:52 07:39 WBC 8.1 (4.8-10.8) x10^3/uL RBC 4.09 L (4.70-6.10) 10^6/uL Hgb 11.2 L (14.0-18.0) g/dL Hct 34.9 L (42.0-52.0) % MCV 85.3 (80.0-94.0) fL MCH 27.4 (27.0-31.0) pg MCHC 32.1 (32.0-36.0) g/dL RDW 13.6 (12.0-15.0) % Plt Count 204 (130-450) 10^3/uL MPV 9.8 (7.4-11.4) fL Neut # (Auto) 6.1 (1.5-6.6) 10^3/uL Lymph # (Auto) 1.1 L (1.5-3.5) 10^3/uL [place] # (Auto) 0.7 (0.0-1.0) 10^3/uL Eos # (Auto) 0.2 (0.0-0.7) 10^3/uL Baso # (Auto) 0.0 (0.0-0.1) 10^3/uL Absolute Nucleated RBC 0.00 x10^3/uL Nucleated RBC % 0.0 /100WBC Sodium 137 (135-145) mmol/L Potassium 3.8 (3.5-5.0) mmol/L Chloride 104 (101-111) mmol/L Carbon Dioxide 22 (21-32) mmol/L Anion Gap 11.0 (6-13) BUN 14 (6-20) mg/dL Creatinine 1.1 (0.6-1.2) mg/dL Estimated GFR (MDRD) 63 L (>89) Glucose 113 H (70-100) mg/dL POC Whole Bld Glucose 99 (70 - 100) mg/dL Glycated Hemoglobin (4.6-6.2) % Estim Average Glucose (70-100) Calcium 8.6 (8.5-10.3) mg/dL Magnesium 2.0 (1.7-2.8) mg/dL Total Bilirubin 1.9 H (0.2-1.0) mg/dL AST 17 (10-42) IU/L ALT 12 (10-60) IU/L Alkaline Phosphatase 45 (42-121) IU/L B-Natriuretic Peptide (5-100) pg/mL Total Protein 6.1 L (6.7-8.2) g/dL Albumin 3.6 (3.2-5.5) g/dL Globulin 2.5 (2.1-4.2) g/dL Albumin/Globulin Ratio 1.4 (1.0-2.2) Triglycerides ( - 149) mg/dL Cholesterol ( - 199) mg/dL LDL Cholesterol, Calc ( - 129) mg/dL VLDL Cholesterol mg/dL HDL Cholesterol (60 - ) mg/dL LDL/HDL Ratio (<3.6) Cholesterol/HDL Ratio (<5.0) 12/20/19 12/19/19 12/19/19 Range/Units 06:16 23:50 20:42 WBC (4.8-10.8) x10^3/uL RBC (4.70-6.10) 10^6/uL Hgb (14.0-18.0) g/dL Hct (42.0-52.0) % MCV (80.0-94.0) fL MCH (27.0-31.0) pg MCHC (32.0-36.0) g/dL RDW (12.0-15.0) % Plt Count (130-450) 10^3/uL MPV (7.4-11.4) fL Neut # (Auto) (1.5-6.6) 10^3/uL Lymph # (Auto) (1.5-3.5) 10^3/uL [place] # (Auto) (0.0-1.0) 10^3/uL Eos # (Auto) (0.0-0.7) 10^3/uL Baso # (Auto) (0.0-0.1) 10^3/uL Absolute Nucleated RBC x10^3/uL Nucleated RBC % /100WBC Sodium (135-145) mmol/L Potassium (3.5-5.0) mmol/L Chloride (101-111) mmol/L Carbon Dioxide (21-32) mmol/L Anion Gap (6-13) BUN (6-20) mg/dL Creatinine (0.6-1.2) mg/dL Estimated GFR (MDRD) (>89) Glucose (70-100) mg/dL POC Whole Bld Glucose 95 106 H 107 H (70 - 100) mg/dL Glycated Hemoglobin (4.6-6.2) % Estim Average Glucose (70-100) Calcium (8.5-10.3) mg/dL Magnesium (1.7-2.8) mg/dL Total Bilirubin (0.2-1.0) mg/dL AST (10-42) IU/L ALT (10-60) IU/L Alkaline Phosphatase (42-121) IU/L B-Natriuretic Peptide (5-100) pg/mL Total Protein (6.7-8.2) g/dL Albumin (3.2-5.5) g/dL Globulin (2.1-4.2) g/dL Albumin/Globulin Ratio (1.0-2.2) Triglycerides ( - 149) mg/dL Cholesterol ( - 199) mg/dL LDL Cholesterol, Calc ( - 129) mg/dL VLDL Cholesterol mg/dL HDL Cholesterol (60 - ) mg/dL LDL/HDL Ratio (<3.6) Cholesterol/HDL Ratio (<5.0) 12/19/19 12/19/19 12/19/19 Range/Units 16:20 11:10 07:26 WBC (4.8-10.8) x10^3/uL RBC (4.70-6.10) 10^6/uL Hgb (14.0-18.0) g/dL Hct (42.0-52.0) % MCV (80.0-94.0) fL MCH (27.0-31.0) pg MCHC (32.0-36.0) g/dL RDW (12.0-15.0) % Plt Count (130-450) 10^3/uL MPV (7.4-11.4) fL Neut # (Auto) (1.5-6.6) 10^3/uL Lymph # (Auto) (1.5-3.5) 10^3/uL [place] # (Auto) (0.0-1.0) 10^3/uL Eos # (Auto) (0.0-0.7) 10^3/uL Baso # (Auto) (0.0-0.1) 10^3/uL Absolute Nucleated RBC x10^3/uL Nucleated RBC % /100WBC Sodium (135-145) mmol/L Potassium (3.5-5.0) mmol/L Chloride (101-111) mmol/L Carbon Dioxide (21-32) mmol/L Anion Gap (6-13) BUN (6-20) mg/dL Creatinine (0.6-1.2) mg/dL Estimated GFR (MDRD) (>89) Glucose (70-100) mg/dL POC Whole Bld Glucose 106 H 103 H 97 (70 - 100) mg/dL Glycated Hemoglobin (4.6-6.2) % Estim Average Glucose (70-100) Calcium (8.5-10.3) mg/dL Magnesium (1.7-2.8) mg/dL Total Bilirubin (0.2-1.0) mg/dL AST (10-42) IU/L ALT (10-60) IU/L Alkaline Phosphatase (42-121) IU/L B-Natriuretic Peptide (5-100) pg/mL Total Protein (6.7-8.2) g/dL Albumin (3.2-5.5) g/dL Globulin (2.1-4.2) g/dL Albumin/Globulin Ratio (1.0-2.2) Triglycerides ( - 149) mg/dL Cholesterol ( - 199) mg/dL LDL Cholesterol, Calc ( - 129) mg/dL VLDL Cholesterol mg/dL HDL Cholesterol (60 - ) mg/dL LDL/HDL Ratio (<3.6) Cholesterol/HDL Ratio (<5.0) 12/19/19 12/18/19 Range/Units 06:39 23:28 WBC (4.8-10.8) x10^3/uL RBC (4.70-6.10) 10^6/uL Hgb (14.0-18.0) g/dL Hct (42.0-52.0) % MCV (80.0-94.0) fL MCH (27.0-31.0) pg MCHC (32.0-36.0) g/dL RDW (12.0-15.0) % Plt Count (130-450) 10^3/uL MPV (7.4-11.4) fL Neut # (Auto) (1.5-6.6) 10^3/uL Lymph # (Auto) (1.5-3.5) 10^3/uL [place] # (Auto) (0.0-1.0) 10^3/uL Eos # (Auto) (0.0-0.7) 10^3/uL Baso # (Auto) (0.0-0.1) 10^3/uL Absolute Nucleated RBC x10^3/uL Nucleated RBC % /100WBC Sodium (135-145) mmol/L Potassium (3.5-5.0) mmol/L Chloride (101-111) mmol/L Carbon Dioxide (21-32) mmol/L Anion Gap (6-13) BUN (6-20) mg/dL Creatinine (0.6-1.2) mg/dL Estimated GFR (MDRD) (>89) Glucose (70-100) mg/dL POC Whole Bld Glucose 119 H 123 H (70 - 100) mg/dL Glycated Hemoglobin (4.6-6.2) % Estim Average Glucose (70-100) Calcium (8.5-10.3) mg/dL Magnesium (1.7-2.8) mg/dL Total Bilirubin (0.2-1.0) mg/dL AST (10-42) IU/L ALT (10-60) IU/L Alkaline Phosphatase (42-121) IU/L B-Natriuretic Peptide (5-100) pg/mL Total Protein (6.7-8.2) g/dL Albumin (3.2-5.5) g/dL Globulin (2.1-4.2) g/dL Albumin/Globulin Ratio (1.0-2.2) Triglycerides ( - 149) mg/dL Cholesterol ( - 199) mg/dL LDL Cholesterol, Calc ( - 129) mg/dL VLDL Cholesterol mg/dL HDL Cholesterol (60 - ) mg/dL LDL/HDL Ratio (<3.6) Cholesterol/HDL Ratio (<5.0) ABX Reporting Has patient been on IV antibiotics over the past 48 hours?: No Sepsis Event Note (H) - Evaluation Current Stage of Sepsis: Ruled out Assessment/Plan - Problem List (1) Seizure Impression: 12/21 pt has no more seizure since pt was admitted hospital. pt was started with IV of Keppra. will switch to PO Keppra, seizure precaution, neuro check. advise pt followup neurologist for further management if pt's family continue pursue or pt's seizure is poor controlled. MRI reveals pt is unremarkable for acute stroke. ECHO reveal preserved EF with moderate right heart abnormal pressure. (2) Type 2 diabetes mellitus with complication, without long-term current use of insulin Conclusion/Plan: 12/21 pt's A1C is 6.5. pt took Metformin at home but pt present lactic acid at 7.4. plan to switch his Metformin to glimepiride, start on today and monitor if pt has hypoglycemia side effect from his meds. advise pt followup his PCP for further management. continue Sliding scale insulin before meals. (3) Lactic acidosis Conclusion/Plan: 12/21 resolved. will try to switch to glimepiride to see if pt tolerate the side effect of hypoglycemia. Metformin can be contributed to Lactic acid but Lactic acidosis could be also contributed to pt's dehydration, seizure activity as well. (4) Hypertension Conclusion/Plan: 12/21 Enalapril dosage increased to 20 bid, will continue vital monitor, add hydralazine PRN. it seems pt has slight elevated BP (5) Cognitive decline Conclusion/Plan: 12/21 pt was already consulted with palliative care. pt's hope pt can be d/c to SNF on today conversation with me for pt's weakness and high risk of fall. continue PT evaluation, and followup recommendation. fall precaution. (6) fall pt had recent fall, pt is at high risk of fall. continue PT's evaluation and treatment, plan to be d/c SNF for continue training
[2019-12-21] MEDS: GLIMEPIRIDE 2 MG TABLET PO SCH (11:49)
--- NOTE | 2019-12-21 12:45 | CONSULTATION NOTE ---
Palliative Care Follow Up - Referral Referring Provider: Angela TORRES Time of Visit: [id number] Referral setting: Hospitalized patient Referral Reason: Dementia/Goal of Care - Information Sources Records reviewed: RN notes reviewed, Previous records reviewed History/Review of Systems obtained from: Family ( Kasie at bedside) Exam limitations: Clinical condition (patient with only few word responses; lethargic at visit) - History of Present Illness Update Brief HPI Update: Please see my note from 12/20. This is a 84-year-old gentleman who has continued to have cognitive functional decline, more acutely over the last few weeks until he presented on 12/19 with increased confusion as well as seizures. In work-up no acute abnormalities were found, but patient in review of history does appear to have had progressive decline. Now concern regarding transitioning back home, he does live with his elderly , they have been struggling over the last few weeks with his increasing care needs. He is so mewhat unsteady on his feet, at the visit today's actually quite lethargic, difficult to arouse. He is at high risk for aspiration and is currently needing to be fed. There is concern about how patient might manage at home, does acknowledge this and is open to SNF placement to see if he can improve his baseline. This is somewhat complicated by the fact he has not had a qualifying stay, social work to meet with , patient and family later this morning. She is hoping he would be a [facility], as this would be easier for her to manage. She did bring in their advanced directive, it is not a POLST form. Patient is difficult to arouse, is unable to participate in the conversation, though we did have a conversation with him present. He is unable to sign as he does not have medical decision-making capacity, is able to weigh benefits and burdens and refers back to patient's signed advanced directive as guidance for filling out POLST. Social History - Living Situation Living arrangement: At home Living Situation: With spouse/s.o. Support System: Patient and live [place], they have had some help with her family support, but for the most part have been managing on their own. Patient actually has been independent in most of his ADLs, though has needed increasing cueing and direction from . Family is concerned about 's memory and cognitive status as well, though she is able to engage and unclear if her forgetfulness and confusion with information provided, is her declining baseline or currently feeling overwhelmed and with acute grief over his decline. Medications/Allergies - Medications Active Medication List: Active Medications Acetaminophen (Tylenol) 650 mg PO Q4HR PRN PRN Reason: Pain 1 to 4 Aspirin (Cosme) 325 mg PO DAILYWM [facility] Last Admin: 12/21/19 09:17 Dose: 325 mg Atorvastatin Calcium (Lipitor) 40 mg PO QPM [facility] Enalapril Maleate (Vasotec) 20 mg PO BIDWM [facility] Last Admin: 12/21/19 09:17 Dose: 20 mg Furosemide (Lasix) 20 mg PO DAILY [facility] Last Admin: 12/21/19 09:17 Dose: 20 mg Glimepiride (Amaryl) 1 mg PO DAILYWM [facility] Last Admin: 12/21/19 11:49 Dose: 1 mg Hydralazine HCl (Apresoline Inj) 10 mg IVP QID PRN PRN Reason: Hypertensive Emergency Levetiracetam (Keppra) 500 mg PO BID [facility] Mineral Oil (Cavilon) 1 applic TOP PRN PRN PRN Reason: Skin Care Ondansetron HCl (Zofran Inj) 4 mg IVP Q6HR PRN PRN Reason: Nausea / Vomiting Ondansetron HCl (Zofran Odt) 4 mg TL Q6HR PRN PRN Reason: Nausea / Vomiting Senna (Senokot) 8.6 - 17.2 mg PO DAILY [facility] Last Admin: 12/21/19 09:17 Dose: 8.6 mg Sodium Chloride (Normal Saline Flush 0.9%) 10 ml IVP PRN PRN PRN Reason: NEEDED PER PROVIDER ORDERS Sodium Chloride (Normal Saline Flush 0.9%) 10 ml IVP 0100,0900,1700 [facility] Last Admin: 12/21/19 09:18 Dose: 10 ml Aspirin [Aspir 81] 81 mg ORAL DAILY 12/13/14 Enalapril [Vasotec] 10 mg ORAL DAILY 12/13/14 Omeprazole 20 mg ORAL DAILY 12/13/14 Pravastatin Sodium 40 mg ORAL QPM 12/13/14 metFORMIN [Glucophage] 750 mg ORAL BID 12/13/14 - Allergies Allergies/Adverse Reactions: Allergies Allergy/AdvReac Type Severity Reaction Status Date / Time No Known Drug Allergies Allergy Verified 12/13/14 12:02 Review of Systems - Constitutional Constitutional: reports: Fatigue, Weight loss. denies: Fever, Chills - Ears, Nose & Throat Ears, Nose & Throat: reports: Hearing loss - Cardiovascular Cardiovascular: reports: Decr. exercise tolerance - Respiratory Respiratory: denies: SOB at rest - Gastrointestinal Gastrointestinal: denies: Constipation - Genitourinary Genitourinary: reports: Incontinence (intermittent; new symptom) - Musculoskeletal Musculoskeletal: reports: Muscle weakness, Assistive devices (trialed with walker) - Integumentary Integumentary: reports: Dryness - Neurological Neurological: reports: General weakness, Memory problems, Slurred speech - Psychiatric Psychiatric: reports: Depression ( reports patient has been having depressive symptoms) - Endocrine Endocrine: reports: Diabetes type 2 - All Other Systems All Other Systems: reports: Other (limited ROS) Physical Exam - Vital Signs Vital Signs: Vital Signs x48h Temp Pulse Pulse Pulse Resp BP BP 12/21/19 11:11 36.6 C 77 18 157/79 H 12/21/19 10:35 78 72 157/79 H 12/21/19 07:49 36.5 C 72 16 166/111 H 12/21/19 05:23 174/86 H 12/21/19 05:18 36.5 C 73 18 182/93 H BP Pulse Ox 12/21/19 11:11 96 12/21/19 10:35 175/86 H 12/21/19 07:49 95 12/21/19 05:23 12/21/19 05:18 98 - Physical Exam General Appearance: positive: Lethargic Eyes Bilateral: positive: Normal inspection ENT: negative: Dry mucous membranes Neck: positive: No JVD, Trachea midline Cardiovascular: positive: Regular rate & rhythm Respiratory: positive: No respiratory distress, Diminished in bases Abdomen: positive: Soft Skin: positive: Pallor, Dryness Extremities: positive: No pedal edema Neurologic/Psychiatric: positive: Disoriented to place, Disoriented to time, Wea kness, Slurred/abnml speech, Flat affect Palliative Care - POLST Patient has POLST: Yes POLST Status: DNR, Selective Treatment (completed at visit) Pain: Location (patient with know severe back pain; has not demonstrated any pain behaviors or voiced complaints) Tiredness/Fatigue: Severe (7-10) Drowsiness/Sedation: Moderate (4-6) Feelings of wellbeing/Perceived Quality of Life: Poor, Worsening, Comment ( reports) Sleep: Other (was restless last night per staff report) Constipation: No Performance Status: Patient had been evaluated by physical therapy, he is not back to baseline. does recognize this would be problematic and bringing him home. She is hopeful he will regain some of his functional status, as she would like to have them at home. She is somewhat resigned and would be open to having him at a SNF with the goal to regain some strength and independence. - Palliative Care Discussion: is quite tearful through all of conversation regarding goals of care. Patient has completed an advanced directive 07/2017, that does reflect given his current status though "not terminal", he does have an incurable reversible condition by definition with his dementia and progression of his disease. She has chosen up to this point for him to be a DNA R, she would like to continue that. It also directs no artificial hydration or nutrition if he were to be in a terminal condition. Otherwise it is fairly common form, has designated Kasie as his D POA to be consulted. And it is his desire to have organ donation. Counseling provided regarding the intent to the POLST, particularly with patient's frequent falls, and most likely chance of accessing 911. We reviewed her overall goals for him, as far as focus on comfort, but at this point in time would like to trial anything that might improve his quality of life, functional status, but does recognize he is declining. She shares that they have been since they were 15 and 16, have been together forever and have done everything together. She is quite tearful to think about his impending decline and , is hoping for some more time. She is also concerned about her increased needs, she is quite appreciative of her children, but worried about the fallout about estate planning, she does not want any hard feelings between them all. She reports patient has been talking or ruminating about his impending decline or , she says he actually has in the past been fairly intuitive, and she does believe there is something to his concerns. When asked if she would want him at home for end-of-life, she reports it would be fine if he was in the hospital, or another place as long as he was comfortable. We completed the POLST with DNA R, selective treatments with the caveat of DNI and weighing benefits and burdens of treatments as they come along. She does not want medical nutrition for him, but at this point would continue to consider antibiotics if it was appropriate. Her hope is that he will improve functionally, and they will have some more time together and there's home setting. She speaks quite fondly other [address] acres, and just their history they are together. Results - Lab Results Lab results reviewed: Yes Fish Bones: 12/21/19 08:36 12/21/19 08:36 Lab and Imaging Results: Lab Results x24hrs 12/21/19 12/21/19 12/21/19 Range/Units 08:36 08:36 08:36 WBC 10.7 (4.8-10.8) x10^3/uL RBC 4.82 (4.70-6.10) 10^6/uL Hgb 13.2 L (14.0-18.0) g/dL Hct 39.8 L (42.0-52.0) % MCV 82.6 (80.0-94.0) fL MCH 27.4 (27.0-31.0) pg MCHC 33.2 (32.0-36.0) g/dL RDW 13.6 (12.0-15.0) % Plt Count 244 (130-450) 10^3/uL MPV 10.4 (7.4-11.4) fL Neut # (Auto) 9.1 H (1.5-6.6) 10^3/uL Lymph # (Auto) 0.7 L (1.5-3.5) 10^3/uL [place] # (Auto) 0.7 (0.0-1.0) 10^3/uL Eos # (Auto) 0.1 (0.0-0.7) 10^3/uL Baso # (Auto) 0.0 (0.0-0.1) 10^3/uL Absolute Nucleated RBC 0.00 x10^3/uL Nucleated RBC % 0.0 /100WBC Sodium 135 (135-145) mmol/L Potassium 3.3 L (3.5-5.0) mmol/L Chloride 99 L (101-111) mmol/L Carbon Dioxide 23 (21-32) mmol/L Anion Gap 13.0 (6-13) BUN 19 (6-20) mg/dL Creatinine 1.1 (0.6-1.2) mg/dL Estimated GFR (MDRD) 63 L (>89) Glucose 219 H (70-100) mg/dL POC Whole Bld Glucose (70 - 100) mg/dL Glycated Hemoglobin (4.6-6.2) % Estim Average Glucose (70-100) Calcium 9.1 (8.5-10.3) mg/dL B-Natriuretic Peptide 303 H (5-100) pg/mL Triglycerides ( - 149) mg/dL Cholesterol ( - 199) mg/dL LDL Cholesterol, Calc ( - 129) mg/dL VLDL Cholesterol mg/dL HDL Cholesterol (60 - ) mg/dL LDL/HDL Ratio (<3.6) Cholesterol/HDL Ratio (<5.0) 12/20/19 12/20/19 12/20/19 Range/Units 11:52 11:52 07:39 WBC (4.8-10.8) x10^3/uL RBC (4.70-6.10) 10^6/uL Hgb (14.0-18.0) g/dL Hct (42.0-52.0) % MCV (80.0-94.0) fL MCH (27.0-31.0) pg MCHC (32.0-36.0) g/dL RDW (12.0-15.0) % Plt Count (130-450) 10^3/uL MPV (7.4-11.4) fL Neut # (Auto) (1.5-6.6) 10^3/uL Lymph # (Auto) (1.5-3.5) 10^3/uL [place] # (Auto) (0.0-1.0) 10^3/uL Eos # (Auto) (0.0-0.7) 10^3/uL Baso # (Auto) (0.0-0.1) 10^3/uL Absolute Nucleated RBC x10^3/uL Nucleated RBC % /100WBC Sodium (135-145) mmol/L Potassium (3.5-5.0) mmol/L Chloride (101-111) mmol/L Carbon Dioxide (21-32) mmol/L Anion Gap (6-13) BUN (6-20) mg/dL Creatinine (0.6-1.2) mg/dL Estimated GFR (MDRD) (>89) Glucose (70-100) mg/dL POC Whole Bld Glucose 99 (70 - 100) mg/dL Glycated Hemoglobin 6.5 H (4.6-6.2) % Estim Average Glucose 140 H (70-100) Calcium (8.5-10.3) mg/dL B-Natriuretic Peptide (5-100) pg/mL Triglycerides 64 ( - 149) mg/dL Cholesterol 115 ( - 199) mg/dL LDL Cholesterol, Calc 46 ( - 129) mg/dL VLDL Cholesterol 13 mg/dL HDL Cholesterol 56 L (60 - ) mg/dL LDL/HDL Ratio 0.8 (<3.6) Cholesterol/HDL Ratio 2.1 (<5.0) 12/20/19 12/19/19 12/19/19 Range/Units 06:16 23:50 20:42 WBC (4.8-10.8) x10^3/uL RBC (4.70-6.10) 10^6/uL Hgb (14.0-18.0) g/dL Hct (42.0-52.0) % MCV (80.0-94.0) fL MCH (27.0-31.0) pg MCHC (32.0-36.0) g/dL RDW (12.0-15.0) % Plt Count (130-450) 10^3/uL MPV (7.4-11.4) fL Neut # (Auto) (1.5-6.6) 10^3/uL Lymph # (Auto) (1.5-3.5) 10^3/uL [place] # (Auto) (0.0-1.0) 10^3/uL Eos # (Auto) (0.0-0.7) 10^3/uL Baso # (Auto) (0.0-0.1) 10^3/uL Absolute Nucleated RBC x10^3/uL Nucleated RBC % /100WBC Sodium (135-145) mmol/L Potassium (3.5-5.0) mmol/L Chloride (101-111) mmol/L Carbon Dioxide (21-32) mmol/L Anion Gap (6-13) BUN (6-20) mg/dL Creatinine (0.6-1.2) mg/dL Estimated GFR (MDRD) (>89) Glucose (70-100) mg/dL POC Whole Bld Glucose 95 106 H 107 H (70 - 100) mg/dL Glycated Hemoglobin (4.6-6.2) % Estim Average Glucose (70-100) Calcium (8.5-10.3) mg/dL B-Natriuretic Peptide (5-100) pg/mL Triglycerides ( - 149) mg/dL Cholesterol ( - 199) mg/dL LDL Cholesterol, Calc ( - 129) mg/dL VLDL Cholesterol mg/dL HDL Cholesterol (60 - ) mg/dL LDL/HDL Ratio (<3.6) Cholesterol/HDL Ratio (<5.0) 12/19/19 12/19/19 12/19/19 Range/Units 16:20 11:10 07:26 WBC (4.8-10.8) x10^3/uL RBC (4.70-6.10) 10^6/uL Hgb (14.0-18.0) g/dL Hct (42.0-52.0) % MCV (80.0-94.0) fL MCH (27.0-31.0) pg MCHC (32.0-36.0) g/dL RDW (12.0-15.0) % Plt Count (130-450) 10^3/uL MPV (7.4-11.4) fL Neut # (Auto) (1.5-6.6) 10^3/uL Lymph # (Auto) (1.5-3.5) 10^3/uL [place] # (Auto) (0.0-1.0) 10^3/uL Eos # (Auto) (0.0-0.7) 10^3/uL Baso # (Auto) (0.0-0.1) 10^3/uL Absolute Nucleated RBC x10^3/uL Nucleated RBC % /100WBC Sodium (135-145) mmol/L Potassium (3.5-5.0) mmol/L Chloride (101-111) mmol/L Carbon Dioxide (21-32) mmol/L Anion Gap (6-13) BUN (6-20) mg/dL Creatinine (0.6-1.2) mg/dL Estimated GFR (MDRD) (>89) Glucose (70-100) mg/dL POC Whole Bld Glucose 106 H 103 H 97 (70 - 100) mg/dL Glycated Hemoglobin (4.6-6.2) % Estim Average Glucose (70-100) Calcium (8.5-10.3) mg/dL B-Natriuretic Peptide (5-100) pg/mL Triglycerides ( - 149) mg/dL Cholesterol ( - 199) mg/dL LDL Cholesterol, Calc ( - 129) mg/dL VLDL Cholesterol mg/dL HDL Cholesterol (60 - ) mg/dL LDL/HDL Ratio (<3.6) Cholesterol/HDL Ratio (<5.0) 12/19/19 12/18/19 Range/Units 06:39 23:28 WBC (4.8-10.8) x10^3/uL RBC (4.70-6.10) 10^6/uL Hgb (14.0-18.0) g/dL Hct (42.0-52.0) % MCV (80.0-94.0) fL MCH (27.0-31.0) pg MCHC (32.0-36.0) g/dL RDW (12.0-15.0) % Plt Count (130-450) 10^3/uL MPV (7.4-11.4) fL Neut # (Auto) (1.5-6.6) 10^3/uL Lymph # (Auto) (1.5-3.5) 10^3/uL [place] # (Auto) (0.0-1.0) 10^3/uL Eos # (Auto) (0.0-0.7) 10^3/uL Baso # (Auto) (0.0-0.1) 10^3/uL Absolute Nucleated RBC x10^3/uL Nucleated RBC % /100WBC Sodium (135-145) mmol/L Potassium (3.5-5.0) mmol/L Chloride (101-111) mmol/L Carbon Dioxide (21-32) mmol/L Anion Gap (6-13) BUN (6-20) mg/dL Creatinine (0.6-1.2) mg/dL Estimated GFR (MDRD) (>89) Glucose (70-100) mg/dL POC Whole Bld Glucose 119 H 123 H (70 - 100) mg/dL Glycated Hemoglobin (4.6-6.2) % Estim Average Glucose (70-100) Calcium (8.5-10.3) mg/dL B-Natriuretic Peptide (5-100) pg/mL Triglycerides ( - 149) mg/dL Cholesterol ( - 199) mg/dL LDL Cholesterol, Calc ( - 129) mg/dL VLDL Cholesterol mg/dL HDL Cholesterol (60 - ) mg/dL LDL/HDL Ratio (<3.6) Cholesterol/HDL Ratio (<5.0) Impression and Recommendations - Palliative Care Impression: This is an 84-year-old gentleman who was admitted acutely with functional and cognitive decline, and new diagnosis of seizure disorder. Patient remains quite frail, needing increased frequency with cueing for safety, and has not returned to baseline. Goals remain to focus on quality of life issues, for this is improving his safety and functional status, considering transition to SNF. Palliative care to continue provide support and will transition to outpatient services given his underlying frailty and decline. Recommendations/Counseling Done: 1. Generalized weakness. Patient has continued functional decline at home, high risk for recurrent falls, and now has increased care needs as a result. quite frail, is hoping for improvement, would need assistance at home and would recommend home health PT/OT. She is agreeable to SNF placement, awaiting final presentation regarding placement versus Medicare stay. 2. Dementia. Patient presents with significant cognitive deficits, now with seizure disorder of unknown etiology, was quite lethargic and less verbal from baseline. Continues with high risk for aspiration regarding feeding issues, this includes both patient and caregiver issues. 3. Advanced care planning. present, did review advanced care directive, also counseling provided regarding POLST. POLST was completed with DNA R/selective treatments, no medical tube feedings, currently would accept antibiotics. Agreement with palliative care to continue provide patient support, given patient's continued decline would be appropriate for outpatient referral. Time Spent: 30 minutes with greater than 50% of this done in counseling regarding goals of care, completion of the POLST, and anticipatory guidance.
[2019-12-21] MEDS ORDERED: ATORVASTATIN 40 MG TABLET PO SCH (21:00)
[2019-12-21] MEDS: levETIRAcetam 500 MG/5 ML UDC PO SCH (22:54)
[2019-12-22] MEDS: SODIUM CHLORIDE FLUSH 0.9% 10 ML SYRINGE IVP SCH ×2 (01:14→10:43)
[2019-12-22 05:13] LABS: BASOPHILS % (AUTO) 0.4 %; EOSINOPHILS # (AUTO) 0.4 10^3/uL (0.0-0.7); EOSINOPHILS % (AUTO) 4.5 %; HGB - HEMOGLOBIN 12.8 g/dL (14.0-18.0); LYMPHOCYTES # (AUTO) 1.3 10^3/uL (1.5-3.5); LYMPHOCYTES % (AUTO) 14.1 %; MEAN CORPUSCULAR HEMOGLOBIN 27.1 pg (27.0-31.0); MEAN CORPUSCULAR HGB CONC 32.1 g/dL (32.0-36.0); MEAN CORPUSCULAR VOLUME 84.5 fL (80.0-94.0); MEAN PLATELET VOLUME 10.7 fL (7.4-11.4); MONOCYTES % (AUTO) 10.6 %; NEUTROPHILS # (AUTO) 6.4 10^3/uL (1.5-6.6); PLT - PLATELET COUNT 240 10^3/uL (130-450); RED BLOOD COUNT 4.72 10^6/uL (4.70-6.10); WHITE BLOOD COUNT 9.2 x10^3/uL (4.8-10.8)
[2019-12-22 05:29] LABS: ALBUMIN 3.7 g/dL (3.2-5.5); ALBUMIN/GLOBULIN RATIO 1.3 (1.0-2.2); BILIRUBIN,TOTAL 1.1 mg/dL (0.2-1.0); CALCIUM 9.1 mg/dL (8.5-10.3); CREATININE 1.2 mg/dL (0.6-1.2); TOTAL PROTEIN 6.5 g/dL (6.7-8.2)
[2019-12-22] MEDS ORDERED: POTASSIUM CHLORIDE 20 MEQ TABLET PO ONE (08:00)
[2019-12-22] MEDS: FUROSEMIDE 40 MG TABLET PO SCH (10:32)
[2019-12-22] MEDS: SENNA 8.6 MG TABLET PO SCH (10:33)
[2019-12-22] MEDS: ASPIRIN 325 MG TABLET PO SCH (10:33)
[2019-12-22] MEDS: ENALAPRIL 5 MG TABLET PO SCH (10:33)
[2019-12-22] MEDS: GLIMEPIRIDE 2 MG TABLET PO SCH (10:33)
[2019-12-22] MEDS: INSULIN ASPART 300 UNIT/3 ML PEN SUBQ SCH ×2 (10:33→12:48)
[2019-12-22] MEDS: levETIRAcetam 500 MG/5 ML UDC PO SCH (10:33)
--- NOTE | 2019-12-22 11:14 | ADVANCE CARE PLANNING NOTE ---
Advance Care Planning - Planning Encounter Date: 12/22/19 Time: 11:14 Purpose: advance care plan for pt Parties in Attendance: pt, pt's and me Decisional Capacity of the Patient: pt is alert, today his mental status is much improved but I believe his capacity to make his own decision is still limited. - Encounter Subjective/Patient's Story: pt's report she met his since 1950 when both at high school. they for 68 yrs, and they plan to celebrate for that. pt's report her is continued to decline over this last year or 2 more years, acutely over the last several weeks. she Report that he can cut fire wood before, they live on [address] acres, and they heat with wood stove. she state if he could not do this this mean he would be a decline in his quality of life, this is not what he looks forward to. The other thing is gardening, he was unable to do his Gardens on this last year because of his back and less engaged. All Family does observe patient's frustration with feelings of worthlessness. his told to her he has not wanted to be a burden, and feels that he is concerned about her and leaving her behind. At this point she still hope her could recover some from his recent seizure and weakness, hope prevention of his fall. she hope his 's code status is still DNR/DNI at this point. she hope pt can return home after short time at SNF. she went to see [facility] on yesterday, she accept her can be d/c [facility] as SNF for improvement of pt's strength and prevention of his fall. she state she graduated from [facility]hab before as well. Objective/Medical Story: pt recently had seizure, but MRI and CT reveals unremarkable for stroke. ECHO reveals preserved EF with moderate right heart abnormal blood pressure. DM2, and cognitive decline. Goals of Care: advance care plan for pt Plan: continue DNR/DNI now, will followup palliative care and return home after SNF. Code Status: Do Not Attempt Resuscitation Time spent on advance care plannin
[2019-12-22] MEDS ORDERED: PANTOPRAZOLE 40 MG TABLET PO SCH (11:40)
--- NOTE | 2019-12-22 12:00 | Discharge Plan ---
"Discharge Plan for SNF / [facility] - Discharge Plan And Transition Orders Problem Reviewed?: Yes Disposition: 03 SNF DC/Xfer Condition: Stable Allergies and Adverse Reactions: Allergies Allergy/AdvReac Type Severity Reaction Status Date / Time No Known Drug Allergies Allergy Verified 12/13/14 12:02 Health Concerns: seizure and weakness/fall Plan of Treatment: pt has no more seizure after treated in hospital. pt is prescribed Keppra. pt may followup neurologist as out-pt pt was evaluated and treated by PT/OT, and pt is recommended to be d/c SNF for continuing training for weakness and prevention of fall. Care Goals: stabilization and improvement of pt's medical conditions Assessment: discussed with pt's for pt's care plan, she understood - SNF / [facility] Transition Orders Admit to (Facility): [facility] Under the care of (Name): health Provider of [facility] Discharge Diagnosis: seizure, DM2, lactic acid, HTN, cognitive decline, fall/weakness Medicare Certification Statement: I certify that Post Hospital custodial care is medically necessary on a continuing basis for any of the conditions for which she/he is receiving care during hospitalization. Notify PCP of admission and forward orders to primary provider for signature. Weight on admission and: Daily Call PCP immediately if weight increases by: 2 kg Other Notification Orders: Call PCP immediately if patient develops dyspnea, chest pain/tightness or edema. House Bowel Program: Yes Additional Bowel Program Orders: If no BM after 2 days, nurse may give M.O.M. 30ml PO PRN and/or ducolax Supp 1 MI and/or TASHIA 250mg P.O., and/or senna 1-2 tabs PO. On day 3 nurse may give repeat above order until residents constipation is resolved. Annual Influenza Vaccine (between Jul 25 and February 21): Yes Two-step PPD per [facility] [id number] or approved exception documents: Yes Treatments & Other Orders: pt is prescribed Keppra for his seizure, pt may followup neurologist as out-pt. pt present high lactic acid level at the admission, so his Metformin is switched to Amaryl. Also pt's Vasotec dosage is increased to 20mg bid for BP control. pt may followup health provider of [facility] when pt is arrival, followup PT/OT in [facility]. Medication Orders: PLEASE REFER TO THE DISCHARGE MEDICATION LIST. Insulin Orders?: No - Medications New Prescriptions: Enalapril Maleate [Vasotec] 20 mg PO BID #10 tablet Glimepiride [Amaryl] 1 mg PO DAILYWM #5 tablet levETIRAcetam [Keppra] 500 mg PO BID #20 udc - Diet Type: Geriatric Texture: Dysphagia mech Liquids: Thin May have monthly special meal: Yes - Therapies | Activity Therapy: Evaluation | Treat if indicated: PT, OT Rehabilitation Potential: Maximize functional status Activity: Activity as Tolerated Additional Instructions: pt is prescribed Keppra for his seizure, pt may followup neurologist as out-pt. pt present high lactic acid level at the admission, so his Metformin is switched to Amaryl. Also pt's Vasotec dosage is increased to 20mg bid for BP control. pt may followup health provider of [facility] when pt is arrival, followup PT/OT in [facility]."
--- NOTE | 2019-12-22 12:26 | DISCHARGE SUMMARY ---
Discharge Summary Admit Date: 12/19/19 Discharge Date: 12/22/19 Discharging Provider: Geo Hutson Primary Care Provider: Rony Page Condition at Discharge: Stable Discharge Disposition: 03 SNF DC/Xfer Discharge Facility [facility]: [facility] - DIAGNOSES Admission Diagnoses: (1) Seizure (2) Type 2 diabetes mellitus with complication, without long-term current use of insulin (3) Lactic acidosis (4) Hypertension (5) Cognitive decline Discharge Diagnoses with Status of Each Condition: (1) Seizure resolved. after treatment, pt has no more seize. pt is prescribed Keppra. pt is advise to followup PCP and neurologist as out-pt (2) Type 2 diabetes mellitus with complication, without long-term current use of insulin stable. pt's A1C is 6.5. pt's home Metformin is switched to Amaryl. advise pt followup his PCP continue for his diabetes management. (3) Lactic acidosis resolved. pt had 7.3 lactic acid level at the admission. pt's home Metformin is switched to Amaryl. advise pt followup his PCP continue for his diabetes management. (4) Hypertension stable. Home meds Vasotec dosage increased to 20 mg bid, continue PCP for management. (5) Cognitive decline stable (6)Fall stable. pt walked on the hallway twice with PT. D/C to SNF for continuing training per PT's recommendation. - HPI History of Present Illness: refer from Dr. Hernandez's HPI on 12/19/2019 This is an elderly gentleman who lives in his own home with his and is hard of hearing, has diabetes, and age-related cognitive decline but now presents wi th new onset seizures tonight. He had 2 seizures at home.He was described as shaking and incontinent of urine. And then he had another seizure in the CT scanner here in our hospital and was witnessed. His last visit with his primary care provider was November 04, 2019. That complaint was "sleeping all the time". He then had a fall on that did not require intervention but had an MRI of the lumbar spine done December 13. He had severe L4-L5 central canal stenosis with compression of the nerve roots on the cauda equina. Severe right and moderate to severe left L4-L5 neural foraminal narrowing with slight compression of the exiting bilateral L4 nerve roots.His and son both describe a relatively sharp decline over the last month. Ever since he fell on , he is just not been himself mentally. Although they have noticed that he has been sleepier, less mobile over the last 6 months, this last month has been very noticeable. They usually take 3 [address] walks on the [place] is in [place] on a daily basis. They stopped about a month and a half ago when the weather in the rain got too severe. This week he tried to walk a quarter of a mile down to their mailbox and back and he just could not make it. He was just exhausted. He has had less and less appetite this month. He is probably down to about 152 or 153 pounds from his usual 160 pounds. For the last 2 days has had increasing confusion. The family notices that he is trying to eat with incorrect utensils. Or he missed naming items. Seems more and more silent with less and less verbal skills per the .There is no antecedent fever, chills. He has no new medications. No headaches, etc. He did have diarrhea yesterday a couple of times. He was evaluated by in the emergency room and was afebrile at 36.9. Blood pressure mildly elevated at 183/91. 97% oxygen saturation on 2 L nasal cannula. He was sinus rhythm on telemetry. He was unresponsive, was not able to follow commands. Then he went to the CT scanner and had another dose of benzodiazepine. CT scan of the head shows no acute intracranial abnormality, no intracranial mass/mass-effect/hydrocephalus. Age-appropriate senescent changes. He does respond to voice and follow basic commands but he is confused and disoriented. He does know his name. White cell count is elevated at 10.9. No bandemia. Electrolytes have mild elevation of creatinine at 1.4. Baseline is 1.1 and down to 0.9. Lactic acid is 7.4 on a patient has had seizures and is on metformin. Random glucose is 184. Troponin is 11. BNP 249. TSH 2.11. Urinalysis had moderate occult blood, red cells, but no infection. Tox screen is negative As such the patient is now placed in observation to make sure that Keppra continues to be loaded, and he has no further seizures. - HOSPITAL COURSE Hospital Course: pt was admitted for seizure. pt had MRI which showed pt has no acute stroke or mass effective. ECHO reveals preserved EF with moderate right heart abnormal pressure. pt was given IV of Keppra, then pt's seizure was controlled. pt's seizure meds was changed to PO, and pt is stable. pt also was found to have dehydration. pt was hydrated in hospital. pt's lactic acid was high at the admission. pt's home Metformin was switched to Amaryl. The detail hospital course is as the below. (1) Seizure resolved. after treatment, pt has no more seize. pt is prescribed Keppra. pt is advise to followup PCP and neurologist as out-pt (2) Type 2 diabetes mellitus with complication, without long-term current use of insulin stable. pt's A1C is 6.5. pt's home Metformin is switched to Amaryl. advise pt followup his PCP continue for his diabetes management. (3) Lactic acidosis resolved. pt had 7.3 lactic acid level at the admission. pt's home Metformin is switched to Amaryl. advise pt followup his PCP continue for his diabetes management. (4) Hypertension stable. Home meds Vasotec dosage increased to 20 mg bid, continue PCP for management. (5) Cognitive decline stable (6)Fall stable. pt walked on the hallway twice with PT. D/C to SNF for continuing training per PT's recommendation. - ALLERGIES Allergies/Adverse Reactions: Allergies Allergy/AdvReac Type Severity Reaction Status Date / Time No Known Drug Allergies Allergy Verified 12/13/14 12:02 - MEDICATIONS Home Medications: Ambulatory Orders Medication Instructions Recorded Confirmed Aspirin [Aspir 81] 81 mg ORAL DAILY 12/13/14 12/18/19 Omeprazole 20 mg ORAL DAILY 12/13/14 12/18/19 Pravastatin Sodium 40 mg ORAL QPM 12/13/14 12/18/19 Enalapril Maleate [Vasotec] 20 mg PO BID #10 tablet 12/22/19 Glimepiride [Amaryl] 1 mg PO DAILYWM #5 tablet 12/22/19 levETIRAcetam [Keppra] 500 mg PO BID #20 udc 12/22/19 - PHYSICAL EXAM AT DISCHARGE General Appearance: positive: No acute distress, Alert. negative: Lethargic Eyes Bilateral: positive: Normal inspection, PERRL, No lid inflammation ENT: positive: ENT inspection nml, Pharynx nml, No signs of dehydration. negative: Purulent nasal drainage Neck: positive: Nml inspection, Thyroid nml, No JVD, Trachea midline. negative: Thyromegaly, Lymphadenopathy (R), Lymphadenopathy (L), Stiff neck, Tracheal deviation Respiratory: positive: Chest non-tender, No respiratory distress, Breath sounds nml. negative: Wheezes, Rales, Rhonchi Cardiovascular: positive: Regular rate & rhythm, No murmur, No gallop. negative: Irregularly irregular, Extrasystoles, Tachycardia, Bradycardia, JVD present, Systolic murmur, Diastolic murmur Peripheral Pulses: positive: 2+ Abdomen: positive: Non-tender, No organomegaly, Nml bowel sounds, No distention. negative: Tenderness, Guarding, Rebound Back: positive: Nml inspection. negative: CVA tenderness (R), CVA tenderness (L) Skin: positive: Color nml, No rash, Warm, Dry. negative: Cyanosis, Diaphoresis, Pallor Extremities: positive: Non-tender, Full ROM, Nml appearance. negative: Calf tenderness, Vy's sign/cords Neurologic/Psychiatric: positive: Motor nml, Sensation nml, Mood/affect nml. negative: Weakness, Sensory loss, Facial droop, Slurred/abnml speech, Depressed mood/affect - LABS Result Diagrams: 12/22/19 04:40 12/22/19 04:40 - SEPSIS Current Stage of Sepsis: Ruled out - FOLLOW UP Follow Up: pt is prescribed Keppra for his seizure, pt may followup neurologist as out-pt. pt present high lactic acid level at the admission, so his Metformin is switched to Amaryl. Also pt's Vasotec dosage is increased to 20mg bid for BP control. pt may followup health provider of [facility] when pt is arrival, followup PT/OT in [facility]. - TIME SPENT Time Spent in Discharge (Minutes): 40
[2019-12-22 13:18] VITALS: BP 108/61
== END 2019-12-22 14:35 | DRG 101 ==
LOC: EDUNIT# → ED 23:22 → MS2 12-19 01:09 → OBSVTOIN 12-20 10:06
PROVIDERS: ADMIT Specialist; ATTEND Nurse Practitioner Gerontology
DX: R56.9 Unspecified convulsions (principal); E87.2 Acidosis; G40.909 Epilepsy, unspecified, not intractable, without status epilepticus; E86.0 Dehydration; G93.89 Other specified disorders of brain; R47.89 Other speech disturbances; T38.3X5A Adverse effect of insulin and oral hypoglycemic [antidiabetic] drugs, initial encounter; E11.36 Type 2 diabetes mellitus with diabetic cataract; H26.9 Unspecified cataract; I25.110 Atherosclerotic heart disease of native coronary artery with unstable angina pectoris; I11.0 Hypertensive heart disease with heart failure; I50.9 Heart failure, unspecified; I27.20 Pulmonary hypertension, unspecified; Y92.003 Bedroom of unspecified non-institutional (private) residence as the place of occurrence of the external cause; F03.90 Unspecified dementia, unspecified severity, without behavioral disturbance, psychotic disturbance, mood disturbance, and anxiety; F32.9 Major depressive disorder, single episode, unspecified; F41.9 Anxiety disorder, unspecified; I10 Essential (primary) hypertension; E11.8 Type 2 diabetes mellitus with unspecified complications; M48.061 Spinal stenosis, lumbar region without neurogenic claudication; M54.16 Radiculopathy, lumbar region; R62.7 Adult failure to thrive; R63.4 Abnormal weight loss; E78.00 Pure hypercholesterolemia, unspecified; I25.119 Atherosclerotic heart disease of native coronary artery with unspecified angina pectoris; K21.9 Gastro-esophageal reflux disease without esophagitis; Z96.641 Presence of right artificial hip joint; Z87.891 Personal history of nicotine dependence; H91.93 Unspecified hearing loss, bilateral; H40.9 Unspecified glaucoma; Z66 Do not resuscitate; Z51.5 Encounter for palliative care; Z96.649 Presence of unspecified artificial hip joint; Z79.84 Long term (current) use of oral hypoglycemic drugs; Z91.81 History of falling; Z86.39 Personal history of other endocrine, nutritional and metabolic disease; Z79.82 Long term (current) use of aspirin; Z79.899 Other long term (current) drug therapy; Z68.21 Body mass index [BMI] 21.0-21.9, adult; Z86.718 Personal history of other venous thrombosis and embolism; Z95.5 Presence of coronary angioplasty implant and graft; Z74.01 Bed confinement status; Z82.0 Family history of epilepsy and other diseases of the nervous system
CPT/HCPCS: 36415; 70450; 70551; 71045; 80048; 80053; 80061; 81001; 82550; 83036; 83605; 83690; 83735; 83880; 84100; 84443; 84484; 85025; 85610; 85730; 92610; 93005; 93306; 96361; 96365; 96375; 97116; 97161; 97165; 97530; 99223; 99285; 99291; A6250; A9270; G0378; J2060; 80306; 80307; 80320; 80329; 81003; 83721; 87086

== ENCOUNTER 2019-12-23 11:00 | Outpatient (CLI) | payer MEDICARE, OTHER ==
[2019-12-23 18:36] LABS: BILIRUBIN,URINE NEGATIVE (NEGATIVE); GLUCOSE, URINE (UA) NEGATIVE (NEGATIVE); KETONES,URINE (UA) NEGATIVE (NEGATIVE); LEUKOCYTE ESTERASE, URINE NEGATIVE (NEGATIVE); NITRITE,URINE NEGATIVE (NEGATIVE); OCCULT BLOOD,URINE MODERATE (NEGATIVE); PH,URINE 5.5 PH (5.0-7.5); PROTEIN,URINE NEGATIVE (NEGATIVE); UROBILINOGEN,URINE 0.2 (NORMAL) E.U./dL (NORMAL)
[2019-12-23 18:53] LABS: CLARITY,URINE CLOUDY (CLEAR)
[2019-12-23 19:42] LABS: AMORPHOUS SEDIMENT,UR Moderate /LPF; BACTERIA,URINE Few /HPF (None Seen); CASTS, URINE 3-5 Hyaline Casts /LPF; SQUAMOUS EPITHELIAL CELL,UR RARE Squamous (<= Few)
== END 2019-12-23 23:59 | disposition home or self-care (01) ==
LOC: LAB.R 11:00
DX: N39.0 Urinary tract infection, site not specified (principal)
CPT/HCPCS: 81001; 81003; 87086

== ENCOUNTER 2019-12-23 13:37 | Outpatient (CLI) | payer MEDICARE, OTHER | END 2019-12-23 13:38 | disposition critical access hospital (66) | LOC: EMS 13:37 | PROVIDERS: ATTEND Surgery | DX: S09.90XA Unspecified injury of head, initial encounter (principal); R41.0 Disorientation, unspecified; W19.XXXA Unspecified fall, initial encounter; Y92.129 Unspecified place in nursing home as the place of occurrence of the external cause | CPT/HCPCS: A0425; A0429 ==

== ENCOUNTER 2019-12-23 13:40 | Emergency (ER) | payer MEDICARE, OTHER ==
--- NOTE | 2019-12-23 14:04 | ED Physician Documentation ---
PD HPI HEAD INJURY - Stated complaint Stated Complaint: FALL/BRUISED EYE - Chief complaint Chief Complaint: Neuro - History obtained from History obtained from: Patient - History of Present Illness Mechanism of head injury: Other (developed bruise right periorbital today. No known fall. Reportedly was restless sleeping last night. Seemed somnolent today.) Timing - onset: Today Location of injury: Right (upper eyelid and lateral eyebrow area with some nontender bruising without swelling that was noted just today. No known fall nor injury according to staff at [facility]. He did seem sleepy today. No focal deficits.) Quality of pain: Dull Associated symptoms: No: LOC Contributing factors: No: Anticoagulated, Intoxicated Similar symptoms before: Has not had sx before Recently seen: Emergency Dept, Admitted (just in [facility] due to new onset seizures of unknown cause.) Review of Systems Constitutional: denies: Fever Nose: denies: Rhinorrhea / runny nose, Congestion Throat: denies: Sore throat Respiratory: denies: Cough GI: denies: Vomiting, Diarrhea Skin: denies: Abrasion (s) (bruising noted today right upper eyelid/eyebrow area.), Laceration (s) PD PAST MEDICAL HISTORY - Past Medical History Cardiovascular: Hypertension, High cholesterol, Coronary artery disease, Deep vein thrombosis, Angina Respiratory: COPD (He was told this by Dr. kenny to get him to stop smoking. But he does not take oxygen or inhalers on a regular basis. Spiriva was tried last fall and is not being used.) Neuro: Dementia, TIA, Seizure disorder Endocrine/Autoimmune: Type 2 diabetes GI: GERD : Benign prostate hypertrophy, Nocturia, Frequency HEENT: Chronic vision loss, Glaucoma, Chronic hearing loss (won't wear hearing aids) Psych: Depression Musculoskeletal: Osteoarthritis, Chronic back pain Derm: Other - Past Surgical History General: Other Ortho: Hip replacement /[employer]EWARD: Other Cardiovascular: Coronary stent HEENT: Cataracts - Present Medications Home Medications: Ambulatory Orders Medication Instructions Recorded Confirmed Aspirin [Aspir 81] 81 mg ORAL DAILY 12/13/14 12/18/19 Omeprazole 20 mg ORAL DAILY 12/13/14 12/18/19 Pravastatin Sodium 40 mg ORAL QPM 12/13/14 12/18/19 Enalapril Maleate [Vasotec] 20 mg PO BID #10 tablet 12/22/19 Glimepiride [Amaryl] 1 mg PO DAILYWM #5 tablet 12/22/19 levETIRAcetam [Keppra] 500 mg PO BID #20 udc 12/22/19 - Allergies Allergies/Adverse Reactions: Allergies Allergy/AdvReac Type Severity Reaction Status Date / Time No Known Drug Allergies Allergy Verified 12/13/14 12:02 - Social History Smoking Status: Former smoker - POLST Patient has POLST: Yes POLST Status: DNR (In his chart in the office there is a statement from April 2017 that he is not to receive any artificial life support. confirms this and says that there is paperwork at home that he wants to be DO NOT RESUSCITATE.) PD ED PE NORMAL - Vitals Vital signs reviewed: Yes - General General: No acute distress, Well developed/nourished. No: Alert and oriented X 3 (opens eyes to voice and tactile. Answers questions. ) - HEENT HEENT: PERRL, EOMI, Other (right upper eyelid without tenderness nor swelling, but does have some mild purple bruising laterally. Does not have swelling to suggest more force impact. ) - Neck Neck: Supple, no meningeal sign, No adenopathy - Cardiac Cardiac: RRR, No murmur - Respiratory Respiratory: Clear bilaterally - Abdomen Abdomen: Soft, Non tender - Derm Derm: Normal color, Warm and dry - Extremities Extremities: No tenderness to palpate, Normal ROM s pain, No edema, No calf tenderness / cord Results - Vitals Vitals: Vital Signs - 24 hr 12/23/19 12/23/19 12/23/19 13:41 14:31 15:05 Temperature 36.8 C 36.8 C Heart Rate 70 58 L 66 Respiratory 18 16 16 Rate Blood Pressure 150/63 H 139/63 H 142/71 H O2 Saturation 100 97 97 12/23/19 16:45 Temperature Heart Rate 58 L Respiratory 14 Rate Blood Pressure 124/72 O2 Saturation 96 Oxygen O2 Source Room air - Labs Labs: Laboratory Tests 12/23/19 12/23/19 12/23/19 14:43 14:43 14:43 WBC 7.6 RBC 4.46 L Hgb 12.2 L Hct 38.1 L MCV 85.4 MCH 27.4 MCHC 32.0 RDW 14.2 Plt Count 243 MPV 10.2 Neut # (Auto) 5.5 Lymph # (Auto) 1.0 L [place] # (Auto) 0.8 Eos # (Auto) 0.2 Baso # (Auto) 0.0 Absolute Nucleated RBC 0.00 Nucleated RBC % 0.0 Sodium 137 Potassium 3.8 Chloride 99 L Carbon Dioxide 26 Anion Gap 12.0 BUN 31 H Creatinine 1.5 H Estimated GFR (MDRD) 44 L Glucose 211 H Lactic Acid 2.1 Calcium 9.7 Magnesium 2.1 Total Bilirubin 0.9 AST 18 ALT 16 Alkaline Phosphatase 55 Total Protein 6.7 Albumin 3.8 Globulin 2.9 Albumin/Globulin Ratio 1.3 Lipase 34 - Rads (name of study) head CT Radiology: Prelim report reviewed (age related changes. No focal swelling nor any bleeding. ), See rad report PD MEDICAL DECISION MAKING - ED course Complexity details: reviewed old records, reviewed results, considered differential (he seems just sleepy and rouses okay, and talkative then. family reports he did not sleep well last night. Has small bruising upper eyelid laterallly but no swelling, so could have even been local mild injury such as face rubbing and small vessel popped, as opposed to fall/harder impact.), d/w family Departure - Departure Disposition: 01 Home, Self Care Clinical Impression: AMS (altered mental status) Qualifiers: Altered mental status type: somnolence Qualified Code(s): R40.0 - Somnolence Periorbital ecchymosis of right eye Qualifiers: Encounter type: initial encounter Qualified Code(s): S00.11XA - Contusion of right eyelid and periocular area, initial encounter Condition: Stable Record reviewed to determine appropriate education?: Yes Follow-Up: Efren Chairez MD [Primary Care Provider] - Comments: CT of the head and neck are normal. It is hard to tell if the bruising around the eye lid was from a fall or may have been just of local minor injury with disrupted blood vessel under the skin. The CT scan shows there is no significant injury or bleeding intracranially. Basic blood tests appeared okay. Continue the current treatments Discharge Date/Time: 12/23/19 16:45
[2019-12-23 14:49] LABS: BASOPHILS % (AUTO) 0.4 %; EOSINOPHILS # (AUTO) 0.2 10^3/uL (0.0-0.7); EOSINOPHILS % (AUTO) 2.6 %; HGB - HEMOGLOBIN 12.2 g/dL (14.0-18.0); LYMPHOCYTES % (AUTO) 13.2 %; MEAN CORPUSCULAR HEMOGLOBIN 27.4 pg (27.0-31.0); MEAN CORPUSCULAR VOLUME 85.4 fL (80.0-94.0); MEAN PLATELET VOLUME 10.2 fL (7.4-11.4); MONOCYTES # (AUTO) 0.8 10^3/uL (0.0-1.0); MONOCYTES % (AUTO) 10.1 %; NEUTROPHILS # (AUTO) 5.5 10^3/uL (1.5-6.6); NEUTROPHILS % (AUTO) 73.3 %; PLT - PLATELET COUNT 243 10^3/uL (130-450); RED BLOOD COUNT 4.46 10^6/uL (4.70-6.10); RED CELL DISTRIBUTION WIDTH 14.2 % (12.0-15.0); WHITE BLOOD COUNT 7.6 x10^3/uL (4.8-10.8)
[2019-12-23 15:01] LABS: ALBUMIN 3.8 g/dL (3.2-5.5); ALBUMIN/GLOBULIN RATIO 1.3 (1.0-2.2); BILIRUBIN,TOTAL 0.9 mg/dL (0.2-1.0); CALCIUM 9.7 mg/dL (8.5-10.3); CREATININE 1.5 mg/dL (0.6-1.2); MAGNESIUM 2.1 mg/dL (1.7-2.8); TOTAL PROTEIN 6.7 g/dL (6.7-8.2)
--- NOTE | 2019-12-23 15:17 | CT Report ---
Reason: right periorbital bruise, sleepy Procedure Date: 12/23/2019 Accession Number: [id number] / [id number] Procedure: CT - HEAD WO CPT Code: Final Report FULL RESULT: EXAM: CT HEAD EXAM DATE: 12/23/2019 03:00 PM. CLINICAL HISTORY: Right periorbital bruise, sleepy. COMPARISON: HEAD W/O 12/18/2019 11:58 PM. TECHNIQUE: Multiaxial CT images were obtained from the foramen magnum to the vertex. Reformats: Sagittal and coronal. IV contrast: None. In accordance with CT protocol optimization, one or more of the following dose reduction techniques were utilized for this exam: automated exposure control, adjustment of mA and/or KV based on patient size, or use of iterative reconstructive technique. FINDINGS: Parenchyma: No intraparenchymal hemorrhage. No evidence of mass, midline shift, or CT findings of acute infarction. Medel-white differentiation is distinct. Diffuse chronic microangiopathic white matter changes are evident. Extraaxial Spaces: Normal for age. No subdural or epidural collections identified. Ventricles: The ventricles and cortical sulci are enlarged, consistent with age-related tissue loss. Sinuses and orbits: Imaged paranasal sinuses, orbits, and mastoids show no significant abnormality. Bones: No evidence of fracture or calvarial defect. Other: None. IMPRESSION: Generalized age-related cortical atrophic changes without evidence of acute intracranial abnormality. [facility]
--- NOTE | 2019-12-23 15:24 | CT Report ---
Reason: right periorbital bruise and sleepy; some neck damaris Procedure Date: 12/23/2019 Accession Number: [id number] / [id number] Procedure: CT - CERVICAL SPINE WO CPT Code: Final Report FULL RESULT: EXAM: CT CERVICAL SPINE WITHOUT CONTRAST DATE: 12/23/2019 03:00 PM. HISTORY: Unwitnessed fall today with right periorbital bruising. Neck pain.. COMPARISONS: None. TECHNIQUE: Thin-section axial images were acquired of the cervical spine without contrast. Post-processing: Coronal and sagittal reformats. Other: None. In accordance with CT protocol optimization, one or more of the following dose reduction techniques were utilized for this exam: automated exposure control, adjustment of mA and/or KV based on patient size, or use of iterative reconstructive technique. FINDINGS: Alignment: Incompletely imaged left convex curvature of the upper thoracic spine. No spondylolisthesis. Bones: No fracture or bone lesion. Interspace Levels/Facets: C1-C2: Unremarkable. C2-C3: Mild bilateral facet arthropathy. No significant bony central canal stenosis or neural foraminal narrowing. C3-C4: Mild disk height loss. Disk osteophyte complex and moderate right facet arthropathy causing mild right bony neural foraminal narrowing. No significant bony central canal stenosis. C4-C5: Moderate disk height loss. Disk osteophyte complex and mild left facet arthropathy causing mild bony central canal stenosis and moderate left bony neural foraminal narrowing. C5-C6: Moderate to severe disk height loss. Disk osteophyte complex causing mild bony central canal stenosis and moderate right and mild left bony neural foraminal narrowing. C6-C7: Moderate disk height loss. Disk osteophyte complex causing mild bony central canal stenosis and severe left and mild right bony neural foraminal narrowing. C7-T1: Unremarkable. Other: Atherosclerotic calcifications in the bilateral carotid bulbs. No paravertebral hematoma or edema is evident. Emphysematous changes in the visualized lung apices. IMPRESSION: 1. Multilevel degenerative disk disease and facet arthropathy, as detailed above. 2. No acute bony abnormality. [facility]
[2019-12-23 17:02] VITALS: BP 124/72
== END 2019-12-23 16:45 | disposition home or self-care (01) ==
LOC: EDUNIT# → ED 13:40
DX: R40.0 Somnolence (principal); S00.11XA Contusion of right eyelid and periocular area, initial encounter; X58.XXXA Exposure to other specified factors, initial encounter; M50.321 Other cervical disc degeneration at C4-C5 level; I10 Essential (primary) hypertension; E11.9 Type 2 diabetes mellitus without complications; G40.909 Epilepsy, unspecified, not intractable, without status epilepticus; F03.90 Unspecified dementia, unspecified severity, without behavioral disturbance, psychotic disturbance, mood disturbance, and anxiety; Z87.891 Personal history of nicotine dependence; Z79.82 Long term (current) use of aspirin; Z66 Do not resuscitate; N39.0 Urinary tract infection, site not specified
CPT/HCPCS: 36415; 70450; 72125; 80053; 81001; 83605; 83690; 83735; 85025; 99284

== ENCOUNTER 2019-12-28 06:21 | Outpatient (CLI) | payer MEDICARE, OTHER | END 2019-12-28 06:22 | disposition critical access hospital (66) | LOC: EMS 06:21 | PROVIDERS: ATTEND Surgery | DX: S01.01XA Laceration without foreign body of scalp, initial encounter (principal); W19.XXXA Unspecified fall, initial encounter; Y92.122 Bedroom in nursing home as the place of occurrence of the external cause | CPT/HCPCS: A0425; A0429 ==

== ENCOUNTER 2019-12-28 06:24 | Emergency (ER) | payer MEDICARE, OTHER ==
--- NOTE | 2019-12-28 07:08 | CT Report ---
Reason: head injury Procedure Date: 12/28/2019 Accession Number: [id number] / [id number] Procedure: CT - HEAD WO CPT Code: Final Report FULL RESULT: EXAM: CT HEAD EXAM DATE: 12/28/2019 06:56 AM. CLINICAL HISTORY: Head injury. COMPARISON: CT HEAD W/O 12/23/2019 2:52 PM. TECHNIQUE: Multiaxial CT images were obtained from the foramen magnum to the vertex. Reformats: Sagittal and coronal. IV contrast: None. In accordance with CT protocol optimization, one or more of the following dose reduction techniques were utilized for this exam: automated exposure control, adjustment of mA and/or KV based on patient size, or use of iterative reconstructive technique. FINDINGS: Parenchyma: No intraparenchymal hemorrhage. No evidence of mass, midline shift, or CT findings of acute infarction. Medel-white differentiation is distinct. Diffuse chronic microangiopathic white matter changes are evident. Extraaxial Spaces: Normal for age. No subdural or epidural collections identified. Ventricles: The ventricles and cortical sulci are enlarged, consistent with age-related tissue loss. Sinuses and orbits: Imaged paranasal sinuses, orbits, and mastoids show no significant abnormality. Bones: No evidence of fracture or calvarial defect. Other: Minimal right posterior scalp swelling. IMPRESSION: 1. No intracranial hemorrhage, skull fracture, or other acute intracranial abnormality. 2. Stable atrophy and chronic microangiopathic white matter changes. 3. Minimal right posterior scalp swelling. [facility]
--- NOTE | 2019-12-28 07:17 | CT Report ---
Reason: neck injury Procedure Date: 12/28/2019 Accession Number: [id number] / [id number] Procedure: CT - CERVICAL SPINE WO CPT Code: Final Report FULL RESULT: EXAM: CT CERVICAL SPINE WITHOUT CONTRAST DATE: 12/28/2019 06:56 AM. HISTORY: Neck injury. COMPARISONS: CERVICAL SPINE W/O 12/23/2019 2:52 PM. TECHNIQUE: Thin-section axial images were acquired of the cervical spine without contrast. Post-processing: Coronal and sagittal reformats. Other: None. In accordance with CT protocol optimization, one or more of the following dose reduction techniques were utilized for this exam: automated exposure control, adjustment of mA and/or KV based on patient size, or use of iterative reconstructive technique. FINDINGS: Alignment: No significant scoliosis. Minimal anterolisthesis at C2-C3 and minimal retrolisthesis at C4-C5. Bones: No fracture or suspicious bone lesion. Interspace Levels/Facets: Disk space narrowing at C4-C5, C5-C6 and C6-C7. Multilevel facet degenerative changes, most prominent at C2-C3. Musculature: Normal. No fatty atrophy. Other: The paravertebral and prevertebral soft tissues are unremarkable. Emphysematous changes in visualized upper lungs. IMPRESSION: 1. No acute fracture of the cervical spine. 2. Stable degenerative changes of the cervical spine. [facility]
--- NOTE | 2019-12-28 07:35 | ED Physician Documentation ---
History of Present Illness - Stated complaint Stated Complaint: FALL - Chief complaint Chief Complaint: Laceration - History obtained from History obtained from: Patient (Patient is accompanied by his at bedside. History is mostly obtained from the and added by patient himself. According to them, patient fell just to arrival this morning while going to the bathroom at a local senior care. There is head injury with contusion to the posterior scalp. On the pillow there is mild small amount of fresh blood oozing from the site. There is no definitive laceration. Patient membered Getting out of the bed trying to go to restroom and lost balance. There was no palpitation no chest pain no shortness of breath no nausea no vomiting at that time. Patient was recently transferred to senior care 3 days ago for rehabilitation after a 5 days hospital admission for "seizure".Currently in the emergency room GCS 15. Alert and oriented x3. History of dementia.), Family - History of Present Illness Timing: Prior to arrival Pain level max: 5 Pain level now: 5 Review of Systems Ten Systems: 10 systems reviewed and negative Constitutional: reports: Reviewed and negative Eyes: reports: Reviewed and negative Ears: reports: Reviewed and negative Nose: reports: Reviewed and negative Throat: reports: Reviewed and negative Cardiac: reports: Reviewed and negative Respiratory: reports: Reviewed and negative GI: reports: Reviewed and negative : reports: Reviewed and negative Skin: reports: Reviewed and negative Musculoskeletal: reports: Reviewed and negative Neurologic: reports: Reviewed and negative Psychiatric: reports: Reviewed and negative Endocrine: reports: Reviewed and negative Immunocompromised: reports: Reviewed and negative PD PAST MEDICAL HISTORY - Past Medical History Cardiovascular: Hypertension, High cholesterol, Coronary artery disease, Deep vein thrombosis, Angina Respiratory: COPD (He was told this by Dr. kenny to get him to stop smoking. But he does not take oxygen or inhalers on a regular basis. 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: Other Cardiovascular: Coronary stent HEENT: Cataracts - Present Medications Home Medications: Ambulatory Orders Medication Instructions Recorded Confirmed Aspirin [Aspir 81] 81 mg ORAL DAILY 12/13/14 12/18/19 Omeprazole 20 mg ORAL DAILY 12/13/14 12/18/19 Pravastatin Sodium 40 mg ORAL QPM 12/13/14 12/18/19 Enalapril Maleate [Vasotec] 20 mg PO BID #10 tablet 12/22/19 Glimepiride [Amaryl] 1 mg PO DAILYWM #5 tablet 12/22/19 levETIRAcetam [Keppra] 500 mg PO BID #20 udc 12/22/19 - Allergies Allergies/Adverse Reactions: Allergies Allergy/AdvReac Type Severity Reaction Status Date / Time No Known Drug Allergies Allergy Verified 12/13/14 12:02 - Social History Does the pt smoke?: Yes Smoking Status: Former smoker - POLST Patient has POLST: Yes POLST Status: DNR (In his chart in the office there is a statement from April 2017 that he is not to receive any artificial life support. confirms this and says that there is paperwork at home that he wants to be DO NOT RESUSCITATE.) PD ED PE NORMAL - Vitals Vital signs reviewed: Yes - General General: Alert and oriented X 3, No acute distress, Other (mildly weak) - HEENT HEENT: PERRL, EOMI, Ears normal, Moist mucous membranes, Pharynx benign, Other (Posterior scalp has a soft tissue swelling signs about 2 inch x 2 inch, no definitive laceration, oozing small amount of blood) - Neck Neck: Supple, no meningeal sign, No bony TTP, No adenopathy - Cardiac Cardiac: RRR, No murmur - Respiratory Respiratory: Clear bilaterally - Abdomen Abdomen: Normal bowel sounds, Soft, Non tender, Non distended - Derm Derm: Warm and dry, Other (posterior scalp contusion) - Extremities Extremities: No deformity - Neuro Neuro: Alert and oriented X 3 Eye Opening: Spontaneous Motor: Obeys Commands Verbal: Oriented GCS Score: 15 - Psych Psych: Normal mood, Normal affect Results - Vitals Vitals: Vital Signs - 24 hr 12/28/19 12/28/19 12/28/19 06:31 09:05 10:02 Temperature 36.8 C Heart Rate 81 79 Heart Rate [ 90 Sitting] Heart Rate [ 88 Standing] Heart Rate [ 77 Supine] Respiratory 22 14 Rate Blood Pressure 157/82 H 135/114 H Blood Pressure 191/78 H [Sitting] Blood Pressure 190/76 H [Standing] Blood Pressure 184/164 H [Supine] O2 Saturation 100 98 Oxygen O2 Source Room air - EKG (time done) No standard instances Rate: Rate (enter#) (75) Rhythm: NSR [place]: Normal Intervals: Normal NM QRS: Normal Ischemia: Normal ST segments - Labs Labs: Laboratory Tests 12/28/19 12/28/19 12/28/19 07:40 07:51 07:51 WBC 10.2 RBC 4.49 L Hgb 12.0 L Hct 38.6 L MCV 86.0 MCH 26.7 L MCHC 31.1 L RDW 13.8 Plt Count 267 MPV 10.0 Neut # (Auto) 8.3 H Lymph # (Auto) 0.9 L [place] # (Auto) 0.9 Eos # (Auto) 0.1 Baso # (Auto) 0.0 Absolute Nucleated RBC 0.00 Nucleated RBC % 0.0 PT 12.0 INR 1.1 APTT 26.7 Sodium Potassium Chloride Carbon Dioxide Anion Gap BUN Creatinine Estimated GFR (MDRD) Glucose Calcium Magnesium Total Bilirubin AST ALT Alkaline Phosphatase Troponin I High Sens Total Protein Albumin Globulin Albumin/Globulin Ratio Lipase TSH Urine Color YELLOW Urine Clarity CLEAR Urine pH 6.0 Ur Specific [place] 1.020 Urine Protein NEGATIVE Urine Glucose (UA) NEGATIVE Urine Ketones NEGATIVE Urine Occult Blood SMALL H Urine Nitrite NEGATIVE Urine Bilirubin NEGATIVE Urine Urobilinogen 0.2 (NORMAL) Ur Leukocyte Esterase NEGATIVE Urine RBC 11-25 H Urine WBC 0-3 Ur Squamous Epith Cells RARE Squamous Urine Bacteria Rare Ur Microscopic Review INDICATED Urine Culture Comments NOT INDICATED 12/28/19 12/28/19 12/28/19 07:51 07:51 07:51 WBC RBC Hgb Hct MCV MCH MCHC RDW Plt Count MPV Neut # (Auto) Lymph # (Auto) [place] # (Auto) Eos # (Auto) Baso # (Auto) Absolute Nucleated RBC Nucleated RBC % PT INR APTT Sodium 137 Potassium 4.2 Chloride 100 L Carbon Dioxide 25 Anion Gap 12.0 BUN 19 Creatinine 1.2 Estimated GFR (MDRD) 57 L Glucose 149 H Calcium 9.1 Magnesium 2.4 Total Bilirubin 0.9 AST 19 ALT 23 Alkaline Phosphatase 58 Troponin I High Sens 10.2 Total Protein 7.2 Albumin 4.2 Globulin 3.0 Albumin/Globulin Ratio 1.4 Lipase 43 TSH 1.27 Urine Color Urine Clarity Urine pH Ur Specific [place] Urine Protein Urine Glucose (UA) Urine Ketones Urine Occult Blood Urine Nitrite Urine Bilirubin Urine Urobilinogen Ur Leukocyte Esterase Urine RBC Urine WBC Ur Squamous Epith Cells Urine Bacteria Ur Microscopic Review Urine Culture Comments PD MEDICAL DECISION MAKING - ED course Complexity details: reviewed old records, d/w patient ED course: :Initial assessment of this traumatic injury: C-collar was applied, CT scan of the head CT scan of the C-spine, blood work including EKG, troponin, thyroid magnesium CBC chemistry were initiated. We will also do orthostatic Blood pressure check. Patient is reassessed at [address] brain, negative C-spine, blood work essentially negative. Nothing acute. There is no orthostatic blood pressure drop. Patient is alert and oriented. Pedicab Driver was able to dress the contusion to the posterior scalp. Patient will be discharge back to senior care. Both the patient and his your were satisfied with her his care When asked about the medication list, his is concerning because patient just recently got transferred to a senior care facility for rehabilitation. She does not have the list of medication that is most up-to-date. We will contact the senior care for updated list of medication for her. Chart from previous visits reviewed. Patient was discharged on Keppra for seizure during the last admission. Prior to discharge, patient was stable. Departure - Departure Disposition: 01 Home, Self Care Clinical Impression: Contusion of scalp, initial encounter, Dementia Fall Qualifiers: Encounter type: initial encounter Qualified Code(s): W19.XXXA - Unspecified fall, initial encounter Condition: Stable Instructions: ED Dementia Caregiver Support, ED Head Injury Closed Follow-Up: Efren Chairez MD [Primary Care Provider] - Comments: Please contact your primary care doctor in 5 to 7 days for wound recheck. Discharge Date/Time: 12/28/19 10:04
[2019-12-28 07:55] LABS: BILIRUBIN,URINE NEGATIVE (NEGATIVE); GLUCOSE, URINE (UA) NEGATIVE (NEGATIVE); KETONES,URINE (UA) NEGATIVE (NEGATIVE); LEUKOCYTE ESTERASE, URINE NEGATIVE (NEGATIVE); NITRITE,URINE NEGATIVE (NEGATIVE); OCCULT BLOOD,URINE SMALL (NEGATIVE); PROTEIN,URINE NEGATIVE (NEGATIVE); UROBILINOGEN,URINE 0.2 (NORMAL) E.U./dL (NORMAL)
[2019-12-28 08:00] LABS: CLARITY,URINE CLEAR (CLEAR)
[2019-12-28 08:03] LABS: BACTERIA,URINE Rare /HPF (None Seen); SQUAMOUS EPITHELIAL CELL,UR RARE Squamous (<= Few)
[2019-12-28 08:03] LABS: BASOPHILS % (AUTO) 0.4 %; EOSINOPHILS # (AUTO) 0.1 10^3/uL (0.0-0.7); EOSINOPHILS % (AUTO) 0.8 %; LYMPHOCYTES # (AUTO) 0.9 10^3/uL (1.5-3.5); LYMPHOCYTES % (AUTO) 8.4 %; MEAN CORPUSCULAR HEMOGLOBIN 26.7 pg (27.0-31.0); MEAN CORPUSCULAR HGB CONC 31.1 g/dL (32.0-36.0); MONOCYTES # (AUTO) 0.9 10^3/uL (0.0-1.0); MONOCYTES % (AUTO) 8.4 %; NEUTROPHILS # (AUTO) 8.3 10^3/uL (1.5-6.6); NEUTROPHILS % (AUTO) 81.5 %; PLT - PLATELET COUNT 267 10^3/uL (130-450); RED BLOOD COUNT 4.49 10^6/uL (4.70-6.10); RED CELL DISTRIBUTION WIDTH 13.8 % (12.0-15.0); WHITE BLOOD COUNT 10.2 x10^3/uL (4.8-10.8)
[2019-12-28 08:04] LABS: INR 1.1 (0.8-1.2)
[2019-12-28 08:11] LABS: ALBUMIN 4.2 g/dL (3.2-5.5); ALBUMIN/GLOBULIN RATIO 1.4 (1.0-2.2); BILIRUBIN,TOTAL 0.9 mg/dL (0.2-1.0); CALCIUM 9.1 mg/dL (8.5-10.3); CREATININE 1.2 mg/dL (0.6-1.2); MAGNESIUM 2.4 mg/dL (1.7-2.8); TOTAL PROTEIN 7.2 g/dL (6.7-8.2)
[2019-12-28 08:12] LABS: PARTIAL THROMBOPLASTIN TIME 26.7 secs (24.9-33.3)
[2019-12-28 10:03] VITALS: BP 135/114
== END 2019-12-28 10:04 | disposition home or self-care (01) ==
LOC: EDUNIT# → ED 06:24
DX: S00.03XA Contusion of scalp, initial encounter (principal); W18.39XA Other fall on same level, initial encounter; Y93.89 Activity, other specified; Y92.129 Unspecified place in nursing home as the place of occurrence of the external cause; I10 Essential (primary) hypertension; F03.90 Unspecified dementia, unspecified severity, without behavioral disturbance, psychotic disturbance, mood disturbance, and anxiety; E11.39 Type 2 diabetes mellitus with other diabetic ophthalmic complication; H40.9 Unspecified glaucoma; Z79.84 Long term (current) use of oral hypoglycemic drugs; Z66 Do not resuscitate
CPT/HCPCS: 70450; 72125; 80053; 81001; 81003; 83690; 83735; 84443; 84484; 85025; 85610; 85730; 87086; 93005; 99284

== ENCOUNTER 2020-01-19 11:01 | Outpatient (CLI) | payer MEDICARE, OTHER ==
[2020-01-19 11:29] LABS: BASOPHILS % (AUTO) 0.5 %; EOSINOPHILS # (AUTO) 0.2 10^3/uL (0.0-0.7); EOSINOPHILS % (AUTO) 2.6 %; LYMPHOCYTES # (AUTO) 1.3 10^3/uL (1.5-3.5); LYMPHOCYTES % (AUTO) 15.2 %; MEAN CORPUSCULAR HEMOGLOBIN 26.8 pg (27.0-31.0); MEAN CORPUSCULAR HGB CONC 31.1 g/dL (32.0-36.0); MEAN CORPUSCULAR VOLUME 86.4 fL (80.0-94.0); MEAN PLATELET VOLUME 9.8 fL (7.4-11.4); MONOCYTES # (AUTO) 0.7 10^3/uL (0.0-1.0); MONOCYTES % (AUTO) 8.7 %; NEUTROPHILS # (AUTO) 6.2 10^3/uL (1.5-6.6); NEUTROPHILS % (AUTO) 72.6 %; PLT - PLATELET COUNT 300 10^3/uL (130-450); RED BLOOD COUNT 4.47 10^6/uL (4.70-6.10); RED CELL DISTRIBUTION WIDTH 13.2 % (12.0-15.0); WHITE BLOOD COUNT 8.5 x10^3/uL (4.8-10.8)
[2020-01-19 11:30] LABS: CALCIUM 9.7 mg/dL (8.5-10.3); CREATININE 1.3 mg/dL (0.6-1.2)
== END 2020-01-19 11:02 | disposition home or self-care (01) ==
LOC: LAB 11:01
PROVIDERS: ATTEND Family Medicine
DX: E16.2 Hypoglycemia, unspecified (principal); I95.2 Hypotension due to drugs; E11.49 Type 2 diabetes mellitus with other diabetic neurological complication; R41.81 Age-related cognitive decline; I10 Essential (primary) hypertension
CPT/HCPCS: 36415; 80048; 80177; 85025

== ENCOUNTER 2020-02-14 14:23 | Outpatient (CLI) | payer MEDICARE, OTHER ==
[2020-02-14 14:46] LABS: BASOPHILS % (AUTO) 0.4 %; EOSINOPHILS % (AUTO) 25.4 %; HGB - HEMOGLOBIN 12.3 g/dL (14.0-18.0); MEAN CORPUSCULAR HEMOGLOBIN 26.7 pg (27.0-31.0); MEAN CORPUSCULAR HGB CONC 31.4 g/dL (32.0-36.0); MEAN CORPUSCULAR VOLUME 85.2 fL (80.0-94.0); MONOCYTES % (AUTO) 7.3 %; NEUTROPHILS % (AUTO) 49.6 %; PLT - PLATELET COUNT 289 10^3/uL (130-450); RED CELL DISTRIBUTION WIDTH 13.6 % (12.0-15.0); WHITE BLOOD COUNT 9.3 x10^3/uL (4.8-10.8)
[2020-02-14 14:52] LABS: ABNORMAL LYMPHS % (MANUAL) 0 %; BAND NEUTROPHILS % (MANUAL) 0 %
[2020-02-14 14:59] LABS: ALBUMIN/GLOBULIN RATIO 1.4 (1.0-2.2); CALCIUM 9.2 mg/dL (8.5-10.3); CREATININE 1.4 mg/dL (0.6-1.2); TOTAL PROTEIN 6.9 g/dL (6.7-8.2)
[2020-02-14 15:06] LABS: DIFFERENTIAL COMMENT MANUAL DIFFERENTIAL; EOSINOPHILS # (MANUAL) 2.1 10^3/uL (0-0.7); LYMPHOCYTES # (MANUAL) 2.1 10^3/uL (1.5-3.5); LYMPHOCYTES % (MANUAL) 23 %; MONOCYTES # (MANUAL) 0.4 10^3/uL (0.0-1.0); PLATELET ESTIMATE, MANUAL NORMAL (130-450,000) (NORMAL); PLATELET MORPHOLOGY NORMAL APPEARANCE (NORMAL); RBC MORPHOLOGY (MULTIPLE) NORMAL APPEARANCE (NORMAL)
== END 2020-02-14 14:24 | disposition home or self-care (01) ==
LOC: LAB 14:23
PROVIDERS: ATTEND Nurse Practitioner
DX: E11.49 Type 2 diabetes mellitus with other diabetic neurological complication (principal); Z79.899 Other long term (current) drug therapy; R19.7 Diarrhea, unspecified; E16.2 Hypoglycemia, unspecified
CPT/HCPCS: 36415; 80053; 80177; 85025

== ENCOUNTER 2020-04-02 04:11 | Emergency (ER) | payer MEDICARE, OTHER ==
--- NOTE | 2020-04-02 04:19 | ED Physician Documentation ---
History of Present Illness - Stated complaint Stated Complaint: AB PX - Chief complaint Chief Complaint: Abd Pain - History obtained from History obtained from: Patient (Patient is an 84-year-old male who presents with his with a chief complaint of right lower quadrant pain. The patient woke up tonight from his sleep with right lower quadrant pain without dysuria or hematuria or diarrhea or constipation no fevers chills or night sweats he does have some baseline dementia he also has a history of seizures for which she is on antiepileptic medications he also has history of hypertension and high for lipidemia he takes a daily baby aspirin as well.He has had a previous right hip replacement otherwise the reports he is never had any other surgeries.) Review of Systems Constitutional: reports: Reviewed and negative Eyes: reports: Reviewed and negative Ears: reports: Reviewed and negative Nose: reports: Reviewed and negative Throat: reports: Reviewed and negative Cardiac: reports: Reviewed and negative Respiratory: reports: Reviewed and negative GI: reports: Abdominal Pain : reports: Reviewed and negative Skin: reports: Reviewed and negative Musculoskeletal: reports: Reviewed and negative Neurologic: reports: Reviewed and negative Psychiatric: reports: Reviewed and negative Endocrine: reports: Reviewed and negative Immunocompromised: reports: Reviewed and negative PD PAST MEDICAL HISTORY - Past Medical History Cardiovascular: Hypertension, High cholesterol, Coronary artery disease, Deep vein thrombosis, Angina Respiratory: COPD (He was told this by Dr. kenny to get him to stop smoking. But he does not take oxygen or inhalers on a regular basis. 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: Other Cardiovascular: Coronary stent HEENT: Cataracts - Present Medications Home Medications: Ambulatory Orders Medication Instructions Recorded Confirmed Aspirin [Aspir 81] 81 mg ORAL DAILY 12/13/14 04/02/20 Omeprazole 20 mg ORAL DAILY 12/13/14 04/02/20 Pravastatin Sodium 40 mg ORAL QPM 12/13/14 04/02/20 Enalapril Maleate [Vasotec] 10 mg PO BID 04/02/20 04/02/20 Hydrocodone/Acetaminophen [[place] 1 each PO Q6HR PRN #7 tablet 04/02/20 5-325 Tablet] Ondansetron Odt [Zofran Odt] 4 mg TL Q6H PRN #10 tablet 04/02/20 Phenytoin [Dilantin] 200 mg PO QPM 04/02/20 04/02/20 - Allergies Allergies/Adverse Reactions: Allergies Allergy/AdvReac Type Severity Reaction Status Date / Time No Known Drug Allergies Allergy Verified 04/02/20 04:20 - Social History Does the pt smoke?: Yes Smoking Status: Former smoker - POLST Patient has POLST: Yes POLST Status: DNR (In his chart in the office there is a statement from April 2017 that he is not to receive any artificial life support. confirms this and says that there is paperwork at home that he wants to be DO NOT RESUSCITATE.) PD ED PE NORMAL - Vitals Vital signs reviewed: Yes - General General: Alert and oriented X 3, No acute distress, Well developed/nourished - HEENT HEENT: Atraumatic, PERRL - Neck Neck: Supple, no meningeal sign - Cardiac Cardiac: RRR, No murmur, Strong equal pulses - Respiratory Respiratory: No respiratory distress, Clear bilaterally - Abdomen Abdomen: Normal bowel sounds, Soft, Non distended, Other (Positive Rovsing sign, Negative Rossi sign, negative psoas sign, no pulsatile mass no CVA tenderness) - Back Back: No CVA TTP, No spinal TTP - Derm Derm: Normal color, Warm and dry, No rash - Extremities Extremities: No deformity, No tenderness to palpate, Normal ROM s pain, No edema, No calf tenderness / cord - 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, No motor deficit, No sensory deficit - Psych Psych: Normal mood, Normal affect Results - Vitals Vitals: Vital Signs - 24 hr 04/02/20 04:15 Temperature 36.5 C Heart Rate 85 Respiratory 18 Rate Blood Pressure 189/74 H O2 Saturation 97 Oxygen O2 Source Room air - EKG (time done) 04:30 Rate: Other (No STEMI) - Labs Labs: Laboratory Tests 04/02/20 04/02/20 04/02/20 04:30 04:30 04:30 WBC 12.7 H RBC 4.59 L Hgb 11.9 L Hct 38.3 L MCV 83.4 MCH 25.9 L MCHC 31.1 L RDW 15.3 H Plt Count 263 MPV 10.4 Neut # (Auto) 10.4 H Lymph # (Auto) 1.1 L [place] # (Auto) 0.8 Eos # (Auto) 0.3 Baso # (Auto) 0.1 Absolute Nucleated RBC 0.00 Nucleated RBC % 0.0 PT 11.1 INR 1.0 APTT 26.0 Sodium 140 Potassium 3.8 Chloride 106 Carbon Dioxide 26 Anion Gap 8.0 BUN 21 H Creatinine 1.2 Estimated GFR (MDRD) 57 L Glucose 168 H Lactic Acid Calcium 9.0 Total Bilirubin 0.5 AST 18 ALT 13 Alkaline Phosphatase 89 Total Creatine Kinase 71 Troponin I High Sens B-Natriuretic Peptide Total Protein 7.2 Albumin 4.1 Globulin 3.1 Albumin/Globulin Ratio 1.3 Lipase 39 Urine Color Urine Clarity Urine pH Ur Specific [place] Urine Protein Urine Glucose (UA) Urine Ketones Urine Occult Blood Urine Nitrite Urine Bilirubin Urine Urobilinogen Ur Leukocyte Esterase Urine RBC Urine WBC Ur Squamous Epith Cells Amorphous Sediment Urine Bacteria Ur Microscopic Review Urine Culture Comments 04/02/20 04/02/20 04/02/20 04:30 04:30 05:24 WBC RBC Hgb Hct MCV MCH MCHC RDW Plt Count MPV Neut # (Auto) Lymph # (Auto) [place] # (Auto) Eos # (Auto) Baso # (Auto) Absolute Nucleated RBC Nucleated RBC % PT INR APTT Sodium Potassium Chloride Carbon Dioxide Anion Gap BUN Creatinine Estimated GFR (MDRD) Glucose Lactic Acid Calcium Total Bilirubin AST ALT Alkaline Phosphatase Total Creatine Kinase Troponin I High Sens 6.4 B-Natriuretic Peptide 168 H Total Protein Albumin Globulin Albumin/Globulin Ratio Lipase Urine Color YELLOW Urine Clarity CLEAR Urine pH 6.0 Ur Specific [place] 1.025 Urine Protein TRACE Urine Glucose (UA) NEGATIVE Urine Ketones NEGATIVE Urine Occult Blood LARGE H Urine Nitrite NEGATIVE Urine Bilirubin NEGATIVE Urine Urobilinogen 0.2 (NORMAL) Ur Leukocyte Esterase NEGATIVE Urine RBC TNTC H Urine WBC 0-3 Ur Squamous Epith Cells RARE Squamous Amorphous Sediment Few Urine Bacteria Rare Ur Microscopic Review INDICATED Urine Culture Comments NOT INDICATED 04/02/20 06:05 WBC RBC Hgb Hct MCV MCH MCHC RDW Plt Count MPV Neut # (Auto) Lymph # (Auto) [place] # (Auto) Eos # (Auto) Baso # (Auto) Absolute Nucleated RBC Nucleated RBC % PT INR APTT Sodium Potassium Chloride Carbon Dioxide Anion Gap BUN Creatinine Estimated GFR (MDRD) Glucose Lactic Acid 1.5 Calcium Total Bilirubin AST ALT Alkaline Phosphatase Total Creatine Kinase Troponin I High Sens B-Natriuretic Peptide Total Protein Albumin Globulin Albumin/Globulin Ratio Lipase Urine Color Urine Clarity Urine pH Ur Specific [place] Urine Protein Urine Glucose (UA) Urine Ketones Urine Occult Blood Urine Nitrite Urine Bilirubin Urine Urobilinogen Ur Leukocyte Esterase Urine RBC Urine WBC Ur Squamous Epith Cells Amorphous Sediment Urine Bacteria Ur Microscopic Review Urine Culture Comments PD MEDICAL DECISION MAKING - ED course Complexity details: reviewed results, re-evaluated patient (Pain-free able to urinate work-ups consistent with kidney stones that are nonobstructing patient will follow-up with his primary care provider tomorrow), considered differential (Appendicitis, Nephrolithiasis, UTI, Diverticulitis), d/w patient, d/w family Departure - Departure Disposition: 01 Home, Self Care Clinical Impression: Kidney stones Condition: Stable Instructions: Kidney Stones Follow-Up: Rony Keene MD [Primary Care Provider] - Tomorrow Prescriptions: Hydrocodone/Acetaminophen [[place] 5-325 Tablet] 1 each PO Q6HR PRN #7 tablet PRN Reason: Pain Ondansetron Odt [Zofran Odt] 4 mg TL Q6H PRN #10 tablet PRN Reason: Nausea / Vomiting
[2020-04-02] MEDS ORDERED: SODIUM CHLORIDE 0.9% 1,000 ML IV ONE (04:25)
[2020-04-02 04:41] LABS: BASOPHILS # (AUTO) 0.1 10^3/uL (0.0-0.1); BASOPHILS % (AUTO) 0.5 %; EOSINOPHILS # (AUTO) 0.3 10^3/uL (0.0-0.7); EOSINOPHILS % (AUTO) 2.3 %; HGB - HEMOGLOBIN 11.9 g/dL (14.0-18.0); LYMPHOCYTES # (AUTO) 1.1 10^3/uL (1.5-3.5); LYMPHOCYTES % (AUTO) 8.8 %; MEAN CORPUSCULAR HEMOGLOBIN 25.9 pg (27.0-31.0); MEAN CORPUSCULAR HGB CONC 31.1 g/dL (32.0-36.0); MEAN CORPUSCULAR VOLUME 83.4 fL (80.0-94.0); MEAN PLATELET VOLUME 10.4 fL (7.4-11.4); MONOCYTES # (AUTO) 0.8 10^3/uL (0.0-1.0); MONOCYTES % (AUTO) 6.3 %; NEUTROPHILS # (AUTO) 10.4 10^3/uL (1.5-6.6); NEUTROPHILS % (AUTO) 81.6 %; PLT - PLATELET COUNT 263 10^3/uL (130-450); RED BLOOD COUNT 4.59 10^6/uL (4.70-6.10); RED CELL DISTRIBUTION WIDTH 15.3 % (12.0-15.0); WHITE BLOOD COUNT 12.7 x10^3/uL (4.8-10.8)
[2020-04-02 04:48] LABS: PT - PROTHROMBIN TIME 11.1 secs (9.9-12.6)
[2020-04-02 04:56] LABS: ALBUMIN 4.1 g/dL (3.2-5.5); ALBUMIN/GLOBULIN RATIO 1.3 (1.0-2.2); BILIRUBIN,TOTAL 0.5 mg/dL (0.2-1.0); CREATININE 1.2 mg/dL (0.6-1.2); TOTAL PROTEIN 7.2 g/dL (6.7-8.2)
--- NOTE | 2020-04-02 05:02 | XRAY Report ---
Reason: sob Procedure Date: 04/02/2020 Accession Number: [id number] / [id number] Procedure: XR - Chest 1 View X-Ray CPT Code: 38253 Final Report FULL RESULT: EXAM: CHEST RADIOGRAPHY EXAM DATE: 04/02/2020 04:53 AM. CLINICAL HISTORY: Short of breath. COMPARISON: CHEST 1 VIEW 12/18/2019 11:50 PM CERVICAL SPINE W/O 12/28/2019 6:55 AM. TECHNIQUE: 1 view. FINDINGS: Lungs/Pleura: Large volumes with known emphysema. No focal pneumonia or overt edema. No pneumothorax or effusion. Mediastinum: Within exam limitations, cardiomediastinal contour is normal. Other: None. IMPRESSION: Known emphysema without acute process seen in the chest. RADIA
[2020-04-02] MEDS ORDERED: IOVERSOL 320 100 ML VIAL IVP ONE ×2 (05:12→05:54)
[2020-04-02 05:48] LABS: BILIRUBIN,URINE NEGATIVE (NEGATIVE); GLUCOSE, URINE (UA) NEGATIVE (NEGATIVE); KETONES,URINE (UA) NEGATIVE (NEGATIVE); LEUKOCYTE ESTERASE, URINE NEGATIVE (NEGATIVE); NITRITE,URINE NEGATIVE (NEGATIVE); OCCULT BLOOD,URINE LARGE (NEGATIVE); PROTEIN,URINE TRACE mg/dL (NEGATIVE); UROBILINOGEN,URINE 0.2 (NORMAL) E.U./dL (NORMAL)
[2020-04-02 05:52] LABS: CLARITY,URINE CLEAR (CLEAR)
[2020-04-02 06:12] LABS: AMORPHOUS SEDIMENT,UR Few /LPF; BACTERIA,URINE Rare /HPF (None Seen); RBC,URINE TNTC /HPF (0-5); SQUAMOUS EPITHELIAL CELL,UR RARE Squamous (<= Few)
--- NOTE | 2020-04-02 06:32 | CT Report ---
Reason: RLQ abd pain Procedure Date: 04/02/2020 Accession Number: [id number] / [id number] Procedure: CT - Abdomen/Pelvis W CPT Code: Final Report FULL RESULT: EXAM: CT ABDOMEN AND PELVIS EXAM DATE: 04/02/2020 05:52 AM. CLINICAL HISTORY: Right lower quadrant abdominal pain. COMPARISONS: CHEST 2 VIEW PA/LAT 01/13/2017 12:01 PM CHEST 2 VIEW PA/LAT 06/24/2013 4:03 PM. TECHNIQUE: Routine helical CT imaging was performed through the abdomen and pelvis. IV contrast: Yes . Enteric contrast: No . Reconstructions: Coronal and sagittal. In accordance with CT protocol optimization, one or more of the following dose reduction techniques were utilized for this exam: automated exposure control, adjustment of mA and/or KV based on patient size, or use of iterative reconstructive technique. FINDINGS: Lung Bases: Emphysema. Chronic right middle lobe nodule, benign. Severe coronary calcifications. Small hiatal hernia. Liver: Possible small right liver cyst. No suspicious masses. Gallbladder/Bile Ducts: Unremarkable. Spleen: Unremarkable. Pancreas: Unremarkable. Adrenal Glands: Unremarkable. Kidneys: Motion limited. Small cysts bilaterally. No imaging follow-up required per concensus recommendations based on imaging criteria. Couple of nonobstructing right mid ureteral stones measuring up to 4 x 3 mm. No suspicious masses or hydronephrosis. Peritoneal Cavity/Bowel: No bowel obstruction or inflammatory process seen. No free air or significant free fluid. No masses or adenopathy. The appendix is not seen but there is no evidence of appendicitis. No excessive stool burden. Pelvic Organs: Approximately 2 mm urinary bladder stone posteriorly. Prostate mildly enlarged. Vasculature: Moderate atherosclerotic disease of the aorta and branches. No aneurysm seen. Bones: No acute or aggressive-appearing abnormality. Previous right hip replacement. Other: None. IMPRESSION: 1. Small urinary bladder stone, possibly recently passed from a renal collecting system in the proper clinical setting. Additional couple small nonobstructing right mid ureteral stones. 2. Emphysema and severe coronary calcifications. 3. Small hiatal hernia. 4. Colonic diverticulosis. 5. Enlarged prostate. 6. Moderate atherosclerotic disease of the aorta and branches. RADIA
[2020-04-02 06:54] VITALS: BP 168/85
== END 2020-04-02 06:46 | disposition home or self-care (01) ==
LOC: ED 04:11
DX: N20.0 Calculus of kidney (principal); I10 Essential (primary) hypertension; E78.5 Hyperlipidemia, unspecified; I25.119 Atherosclerotic heart disease of native coronary artery with unspecified angina pectoris; J43.9 Emphysema, unspecified; G40.909 Epilepsy, unspecified, not intractable, without status epilepticus; K21.9 Gastro-esophageal reflux disease without esophagitis; N40.1 Benign prostatic hyperplasia with lower urinary tract symptoms; R35.1 Nocturia; R35.0 Frequency of micturition; H54.7 Unspecified visual loss; H40.9 Unspecified glaucoma; H91.90 Unspecified hearing loss, unspecified ear; G89.29 Other chronic pain; M54.9 Dorsalgia, unspecified; M19.90 Unspecified osteoarthritis, unspecified site; Z66 Do not resuscitate; Z79.82 Long term (current) use of aspirin; Z95.5 Presence of coronary angioplasty implant and graft; Z96.641 Presence of right artificial hip joint; Z86.718 Personal history of other venous thrombosis and embolism; Z86.73 Personal history of transient ischemic attack (TIA), and cerebral infarction without residual deficits; Z87.891 Personal history of nicotine dependence
CPT/HCPCS: 36415; 71045; 74177; 80053; 81001; 82550; 83605; 83690; 83880; 84484; 85025; 85610; 85730; 93005; 99284; Q9967; 81003; 87086

== ENCOUNTER 2020-04-18 08:00 | Outpatient (CLI) | payer MEDICARE, OTHER ==
[2020-04-18 14:08] LABS: BASOPHILS % (AUTO) 0.5 %; BILIRUBIN,URINE NEGATIVE (NEGATIVE); EOSINOPHILS # (AUTO) 0.2 10^3/uL (0.0-0.7); EOSINOPHILS % (AUTO) 2.1 %; GLUCOSE, URINE (UA) 250 mg/dL (NEGATIVE); HGB - HEMOGLOBIN 11.3 g/dL (14.0-18.0); KETONES,URINE (UA) NEGATIVE (NEGATIVE); LEUKOCYTE ESTERASE, URINE NEGATIVE (NEGATIVE); LYMPHOCYTES # (AUTO) 1.7 10^3/uL (1.5-3.5); LYMPHOCYTES % (AUTO) 19.6 %; MEAN CORPUSCULAR HEMOGLOBIN 24.8 pg (27.0-31.0); MEAN CORPUSCULAR HGB CONC 29.4 g/dL (32.0-36.0); MEAN CORPUSCULAR VOLUME 84.2 fL (80.0-94.0); MEAN PLATELET VOLUME 10.9 fL (7.4-11.4); MONOCYTES # (AUTO) 0.7 10^3/uL (0.0-1.0); MONOCYTES % (AUTO) 7.8 %; NEUTROPHILS # (AUTO) 5.9 10^3/uL (1.5-6.6); NEUTROPHILS % (AUTO) 69.6 %; NITRITE,URINE NEGATIVE (NEGATIVE); OCCULT BLOOD,URINE NEGATIVE (NEGATIVE); PH,URINE 5.5 PH (5.0-7.5); PLT - PLATELET COUNT 310 10^3/uL (130-450); PROTEIN,URINE NEGATIVE (NEGATIVE); RED BLOOD COUNT 4.56 10^6/uL (4.70-6.10); RED CELL DISTRIBUTION WIDTH 15.8 % (12.0-15.0); UROBILINOGEN,URINE 0.2 (NORMAL) E.U./dL (NORMAL); WHITE BLOOD COUNT 8.5 x10^3/uL (4.8-10.8)
[2020-04-18 14:14] LABS: CLARITY,URINE CLEAR (CLEAR)
[2020-04-18 14:34] LABS: ALBUMIN 4.1 g/dL (3.2-5.5); ALBUMIN/GLOBULIN RATIO 1.4 (1.0-2.2); BILIRUBIN,TOTAL 0.7 mg/dL (0.2-1.0); CALCIUM 9.2 mg/dL (8.5-10.3); CREATININE 1.2 mg/dL (0.6-1.2); PHENYTOIN (DILANTIN) 3.9 ug/mL
== END 2020-04-18 23:59 | disposition home or self-care (01) ==
LOC: LAB.WCP 08:00
PROVIDERS: ATTEND Family Medicine
DX: G40.409 Other generalized epilepsy and epileptic syndromes, not intractable, without status epilepticus (principal); R31.9 Hematuria, unspecified
CPT/HCPCS: 36415; 80053; 80185; 81001; 81003; 85025; 87086

== ENCOUNTER 2020-07-06 08:00 | Outpatient (CLI) | payer MEDICARE, OTHER ==
[2020-07-06 18:31] LABS: BASOPHILS % (AUTO) 0.4 %; EOSINOPHILS # (AUTO) 0.1 10^3/uL (0.0-0.7); EOSINOPHILS % (AUTO) 1.8 %; HGB - HEMOGLOBIN 12.8 g/dL (14.0-18.0); LYMPHOCYTES # (AUTO) 1.5 10^3/uL (1.5-3.5); LYMPHOCYTES % (AUTO) 19.6 %; MEAN CORPUSCULAR HEMOGLOBIN 26.5 pg (27.0-31.0); MEAN CORPUSCULAR HGB CONC 30.5 g/dL (32.0-36.0); MEAN CORPUSCULAR VOLUME 86.7 fL (80.0-94.0); MEAN PLATELET VOLUME 10.7 fL (7.4-11.4); MONOCYTES # (AUTO) 0.7 10^3/uL (0.0-1.0); MONOCYTES % (AUTO) 9.2 %; NEUTROPHILS # (AUTO) 5.3 10^3/uL (1.5-6.6); NEUTROPHILS % (AUTO) 68.7 %; PLT - PLATELET COUNT 300 10^3/uL (130-450); RED BLOOD COUNT 4.83 10^6/uL (4.70-6.10); WHITE BLOOD COUNT 7.6 x10^3/uL (4.8-10.8)
== END 2020-07-06 23:59 | disposition home or self-care (01) ==
LOC: LAB.WCP 08:00
PROVIDERS: ATTEND Family Medicine
DX: G40.409 Other generalized epilepsy and epileptic syndromes, not intractable, without status epilepticus (principal)
CPT/HCPCS: 36415; 80185; 85025

== ENCOUNTER 2020-08-04 09:15 | Outpatient (CLI) | payer MEDICARE, OTHER ==
[2020-08-04 09:39] LABS: BASOPHILS % (AUTO) 0.3 %; EOSINOPHILS # (AUTO) 0.2 10^3/uL (0.0-0.7); EOSINOPHILS % (AUTO) 2.7 %; HGB - HEMOGLOBIN 12.6 g/dL (14.0-18.0); LYMPHOCYTES # (AUTO) 1.4 10^3/uL (1.5-3.5); LYMPHOCYTES % (AUTO) 23.2 %; MEAN CORPUSCULAR VOLUME 83.9 fL (80.0-94.0); MEAN PLATELET VOLUME 10.4 fL (7.4-11.4); MONOCYTES # (AUTO) 0.6 10^3/uL (0.0-1.0); MONOCYTES % (AUTO) 9.9 %; NEUTROPHILS # (AUTO) 3.7 10^3/uL (1.5-6.6); NEUTROPHILS % (AUTO) 63.6 %; PLT - PLATELET COUNT 240 10^3/uL (130-450); RED BLOOD COUNT 4.85 10^6/uL (4.70-6.10); RED CELL DISTRIBUTION WIDTH 14.8 % (12.0-15.0); WHITE BLOOD COUNT 5.9 x10^3/uL (4.8-10.8)
[2020-08-04 09:50] LABS: ALBUMIN 4.4 g/dL (3.2-5.5); ALBUMIN/GLOBULIN RATIO 1.3 (1.0-2.2); BILIRUBIN,TOTAL 0.4 mg/dL (0.2-1.0); CALCIUM 9.3 mg/dL (8.5-10.3); CREATININE 1.4 mg/dL (0.6-1.2); TOTAL PROTEIN 7.7 g/dL (6.7-8.2)
--- NOTE | 2020-08-04 14:05 | XRAY Report ---
PROCEDURE: Chest 2 View X-Ray INDICATIONS: LAB DRAW, EXERTIONAL DYSPNEA TECHNIQUE: 2 view(s) of the chest. COMPARISON: None. FINDINGS: Surgical changes and devices: None. Lungs and pleura: No pleural effusions or pneumothorax. Chronic interstitial changes are present. Yarelis ngs are hyperinflated with emphysematous change. Mediastinum: Mediastinal contours are normal. Heart size is normal. Bones and chest wall: No suspicious bony abnormalities. Soft tissues appear unremarkable. IMPRESSION: No acute pulmonary process. Reviewed by: Milana Zabala MD on 08/04/2020 2:03 PM PDT Approved by: Milana Zabala MD on 08/04/2020 2:03 PM PDT Station ID: [id number]
== END 2020-08-04 09:16 | disposition home or self-care (01) ==
LOC: LAB 09:15 → DI 09:16
PROVIDERS: ATTEND Family Medicine
DX: R06.09 Other forms of dyspnea (principal); G40.409 Other generalized epilepsy and epileptic syndromes, not intractable, without status epilepticus; E11.49 Type 2 diabetes mellitus with other diabetic neurological complication; I10 Essential (primary) hypertension; I25.10 Atherosclerotic heart disease of native coronary artery without angina pectoris
CPT/HCPCS: 36415; 71046; 80053; 83880; 84443; 85025

== ENCOUNTER 2020-08-31 | Outpatient (CLI) | payer MEDICARE, OTHER ==
[2020-08-31 18:58] LABS: CALCIUM 9.1 mg/dL (8.5-10.3); CREATININE 1.3 mg/dL (0.6-1.2)
[2020-08-31 19:27] LABS: HEMOGLOBIN A1c% 7.9 % (4.27-6.07)
== END 2020-08-31 23:59 | disposition home or self-care (01) ==
LOC: LAB.WCP
PROVIDERS: ATTEND Family Medicine
DX: R73.9 Hyperglycemia, unspecified (principal)
CPT/HCPCS: 36415; 80048; 83036

== ENCOUNTER 2020-09-26 04:37 | Observation (INO) | payer MEDICARE, OTHER ==
[2020-09-26] MEDS ORDERED: ASPIRIN CHEW 81 MG TABLET PO STA (04:57)
[2020-09-26 05:05] LABS: BASOPHILS % (AUTO) 0.3 %; EOSINOPHILS # (AUTO) 0.2 10^3/uL (0.0-0.7); EOSINOPHILS % (AUTO) 1.6 %; HGB - HEMOGLOBIN 12.2 g/dL (14.0-18.0); LYMPHOCYTES % (AUTO) 11.2 %; MEAN CORPUSCULAR HEMOGLOBIN 26.3 pg (27.0-31.0); MEAN CORPUSCULAR HGB CONC 31.3 g/dL (32.0-36.0); MEAN CORPUSCULAR VOLUME 84.2 fL (80.0-94.0); MEAN PLATELET VOLUME 10.1 fL (7.4-11.4); MONOCYTES # (AUTO) 0.6 10^3/uL (0.0-1.0); MONOCYTES % (AUTO) 6.3 %; NEUTROPHILS # (AUTO) 7.4 10^3/uL (1.5-6.6); NEUTROPHILS % (AUTO) 80.3 %; PLT - PLATELET COUNT 249 10^3/uL (130-450); RED BLOOD COUNT 4.63 10^6/uL (4.70-6.10); RED CELL DISTRIBUTION WIDTH 14.6 % (12.0-15.0); WHITE BLOOD COUNT 9.3 x10^3/uL (4.8-10.8)
[2020-09-26 05:20] LABS: ALBUMIN 4.1 g/dL (3.2-5.5); ALBUMIN/GLOBULIN RATIO 1.4 (1.0-2.2); BILIRUBIN,TOTAL 0.7 mg/dL (0.2-1.0); CALCIUM 9.4 mg/dL (8.5-10.3); CREATININE 1.4 mg/dL (0.6-1.2)
[2020-09-26] MEDS ORDERED: SODIUM CHLORIDE 0.9% 500 ML IV ONE (06:05)
[2020-09-26] MEDS ORDERED: ACETAMINOPHEN 325 MG TABLET PO PRN (06:28)
[2020-09-26] MEDS ORDERED: SODIUM CHLORIDE FLUSH 0.9% 10 ML SYRINGE IVP PRN (06:28)
[2020-09-26] MEDS ORDERED: ONDANSETRON 4 MG/2 ML VIAL IVP PRN (06:28)
--- NOTE | 2020-09-26 06:51 | ED Physician Documentation ---
PD HPI CHEST PAIN - Stated complaint Stated Complaint: CP - Chief complaint Chief Complaint: Cardiac - History obtained from History obtained from: Patient, Family () - Additional information Additional information: 85-year-old man with past medical history of coronary artery disease status post 2 stents in 2016, high blood pressure, COPD, diabetes, seizure disorder presents with chest pain starting at 11 PM this evening. Patient describes pain as sore midsternal nonradiating beginning at rest sudden onset moderate severity now resolved. Associated with indigestion. Denies fever chills cough shortness of breath pleurisy back pain abdominal pain. Denies nausea. Denies leg swelling. Review of Systems Ten Systems: 10 systems reviewed and negative Constitutional: denies: Fever, Chills Cardiac: reports: Chest pain / pressure. 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 Cardiovascular: Coronary stent HEENT: Cataracts - Present Medications Home Medications: Ambulatory Orders Medication Instructions Recorded Confirmed Aspirin [Aspir 81] 81 mg ORAL DAILY 12/13/14 04/02/20 Pravastatin Sodium 40 mg ORAL QPM 12/13/14 04/02/20 Enalapril Maleate [Vasotec] 10 mg PO BID 04/02/20 04/02/20 Phenytoin [Dilantin] 200 mg PO QPM 04/02/20 04/02/20 Fluticasone/Vilanterol [Breo 1 puffs DAILY 09/26/20 09/26/20 Ellipta 100-25 Mcg INH] metFORMIN [Glucophage] 500 BID 09/26/20 - Allergies Allergies/Adverse Reactions: Allergies Allergy/AdvReac Type Severity Reaction Status Date / Time No Known Drug Allergies Allergy Verified 09/26/20 04:51 - Social History Does the pt smoke?: No Smoking Status: Former smoker Does the pt drink ETOH?: No Does the pt have substance abuse?: No - POLST Patient has POLST: Yes POLST Status: DNR (In his chart in the office there is a statement from April 2017 that he is not to receive any artificial life support. confirms this and says that there is paperwork at home that he wants to be DO NOT RESUSCITATE.) PD ED PE NORMAL - Vitals Vital signs reviewed: Yes - General General: Alert and oriented X 3 - HEENT HEENT: Atraumatic, PERRL, EOMI, Moist mucous membranes - Neck Neck: Supple, no meningeal sign, No JVD - Cardiac Cardiac: RRR - Respiratory Respiratory: No respiratory distress, Clear bilaterally - Abdomen Abdomen: Non tender, Non distended - Male Male : Deferred - Rectal Rectal: Deferred - Back Back: No spinal TTP - Derm Derm: Normal color, Warm and dry - Extremities Extremities: No deformity, No edema - Neuro Neuro: Alert and oriented X 3 - Psych Psych: Normal mood, Normal affect Results - Vitals Vitals: Vital Signs - 24 hr 09/26/20 09/26/20 09/26/20 04:48 05:21 05:30 Temperature 37.3 C 37.3 C 37.3 C Heart Rate 71 66 64 Respiratory 16 16 16 Rate Blood Pressure 170/77 H 166/75 H 139/69 H O2 Saturation 97 99 98 09/26/20 06:00 Temperature 37.2 C Heart Rate 60 Respiratory 16 Rate Blood Pressure 145/64 H O2 Saturation 99 Oxygen O2 Source Room air - Labs Labs: Laboratory Tests 09/26/20 09/26/20 09/26/20 05:00 05:00 05:00 WBC 9.3 RBC 4.63 L Hgb 12.2 L Hct 39.0 L MCV 84.2 MCH 26.3 L MCHC 31.3 L RDW 14.6 Plt Count 249 MPV 10.1 Neut # (Auto) 7.4 H Lymph # (Auto) 1.0 L [place] # (Auto) 0.6 Eos # (Auto) 0.2 Baso # (Auto) 0.0 Absolute Nucleated RBC 0.00 Nucleated RBC % 0.0 Sodium 138 Potassium 5.0 Chloride 105 Carbon Dioxide 25 Anion Gap 8.0 BUN 29 H Creatinine 1.4 H Estimated GFR (MDRD) 48 L Glucose 197 H Calcium 9.4 Total Bilirubin 0.7 AST 15 ALT 11 Alkaline Phosphatase 76 Troponin I High Sens 4.8 Total Protein 7.0 Albumin 4.1 Globulin 2.9 Albumin/Globulin Ratio 1.4 Lipase 68 H PD MEDICAL DECISION MAKING - ED course Complexity details: reviewed old records, reviewed results, re-evaluated patient, d/w patient, d/w family ED course: 85-year-old man presented with high risk chest pain resolving upon arrival to the ED. Aspirin 325 given. 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 Discussed with hospitalist and with patient and family who are agreeable. Departure - Departure Disposition: 66 [facility] DC/Xfer Clinical Impression: Chest pain, Dyspepsia Condition: Stable
[2020-09-26] MEDS ORDERED: SODIUM CHLORIDE 0.9% 1,000 ML IV SCH (07:00)
[2020-09-26] MEDS ORDERED: PANTOPRAZOLE 40 MG TABLET PO SCH (07:00)
[2020-09-26] MEDS ORDERED: SODIUM CHLORIDE FLUSH 0.9% 10 ML SYRINGE IVP SCH (09:00)
[2020-09-26] MEDS ORDERED: HEPARIN 5,000 UNIT/ML VIAL SUBQ SCH (09:00)
--- NOTE | 2020-09-26 09:55 | XRAY Report ---
PROCEDURE: Chest 1 View X-Ray INDICATIONS: Chest Pain TECHNIQUE: One view of the chest was acquired. COMPARISON: 08/04/2020 FINDINGS: Surgical changes and devices: None. Lungs and pleura: No pleural effusions or pneumothorax. Lungs are clear. Mediastinum: Mediastinal contours appear normal. Heart size is normal. Bones and chest wall: No suspicious bony lesions. Overlying soft tissues appear unremarkable. IMPRESSION: No acute cardiopulmonary disease process. Reviewed by: Yamila Samano MD, PhD on 09/26/2020 9:54 AM [facility] Approved by: Yamila Samano MD, PhD on 09/26/2020 9:54 AM [facility] Station ID: [id number]
--- NOTE | 2020-09-26 11:29 | PHARMACY PROGRESS NOTE ---
- Best Possible Medication History Admit Date and Time: 09/26/20 0628 Processed by: Pharmacy Medication History completed: Yes Patient Interview: Completed Secondary Source(s): Spouse/Significant other, Physician records, Pharmacy records As the person ultimately responsible for medication therapy, providers are able to order a medication from an existing home medication list in [facility] via the "Reconcile Routine" prior to Confirmation of that medication by user support specialist. Such practice is discouraged except when the physician, in their clinical judgment, deems that a medical need exists for a medication without regard to previous use.
[2020-09-26] MEDS ORDERED: INSULIN REGULAR HUMAN 300 UNIT/3 ML VIAL SUBQ SCH (12:00)
[2020-09-26] MEDS ORDERED: INSULIN ASPART 300 UNIT/3 ML PEN SUBQ SCH (12:00)
[2020-09-26] MEDS ORDERED: polyethylene glycoL 3350 17 GM PACKET PO SCH (12:00)
--- NOTE | 2020-09-26 12:19 | HISTORY & PHYSICAL EXAMINATION ---
DATE OF SERVICE: 09/26/2020 Physician: Janay Garcia MD HISTORY OF PRESENT ILLNESS: This is an 85-year-old white male with a history of coronary artery disease with stents placed in 2011, 2012 and 2014. He had a stress test done in 2018 using pharmacologic stress test that showed no areas of scar and no reversible ischemic defects. He has a history of admission here 10 months ago for seizure onset. He has a history of diabetes, which has been treated in the past, then was off medications, and he has resumed metformin just 1 week ago. There is a history of CKD with creatinines of 1.4 documented in October 2019. The patient presents with several episodes of recurrence of epigastric and lower chest pain that occurred without any relation to food, activity, body position. He tried to take Gaviscon multiple times and it did not relieve his pain. There was no associated shortness of breath, nausea, vomiting or dizziness. It kept him up all last night and at 3 a.m., he decided to come to the ER. In the ER, there has been no symptom. There was a slight symptom as he was being brought to his hospital bed, which resolved spontaneously. The gives most of the history because of the patient's dementia. 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 New medications were metformin, just recently started for elevated fingerstick glucose values of 199 and elevated A1c. The states that now his fingerstick glucoses are running 119. The patient has never had symptoms such as this epigastric discomfort before. Specifically, when he had need for coronary stenting, all his anginal symptoms were at the top of his shoulders. The patient states he gets occasional neck pain and points to his left neck, but not his shoulders. He cannot be specific about when he gets this. PAST MEDICAL HISTORY 1. CAD with stents. 2. Diabetes. 3. Dementia. 4. COPD. 5. CKD. 6. Seizure disorder. ALLERGIES: NONE. MEDICATIONS 1. Enalapril 10 mg b.i.d. 2. Metformin 500 mg b.i.d. 3. Dilantin 200 mg every night. 4. Pravastatin 40 mg every night. 5. Baby aspirin daily. 6. Breo Ellipta 1 puff daily. FAMILY HISTORY: No inherited diseases. SOCIAL HISTORY: He lives with his . 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 He no longer drives. He is a remote ex-smoker who quit over 40 years ago. There is no history of alcohol abuse or illicit drug use. REVIEW OF SYSTEMS: A comprehensive review of systems was performed and the pertinent positives are listed, the rest are negative. As I was exiting the room, the reported that he has not had a bowel movement in 3 days and tried to use Ex-Lax at home, but that was a very old medication. PHYSICAL EXAMINATION GENERAL: Elderly white male. He appears in no distress, sitting up in bed. VITAL SIGNS: Blood pressure 127/50, heart rate is 50-65 in sinus rhythm, afebrile, room air saturation 99%. HEENT: Unremarkable. NECK: No JVD in a vertical position. No carotid bruits. CHEST: Left basilar crackles. HEART: Normal heart sounds without murmurs. ABDOMEN: Soft, nontender. No organomegaly. No guarding or rebound. Normal bowel sounds. LEGS: No clubbing, cyanosis or edema. NEUROLOGIC: Grossly intact except for poor memory. LABORATORY DATA: Normal electrolytes. BUN 29, creatinine 1.4, which is about his baseline from 11 months ago. Glucose 126. Normal liver tests. Troponin I is 4.8 and on repeat 4.9. Lipase 68. White blood count 9.3, hemoglobin 12.2, platelet count 249. No INR was done. EKG: Normal sinus rhythm, PVC, flat T-waves in the inferior leads, QS in V1 and V2 and these were present on his old EKGs. He had an echo done approximately a year ago, which showed normal LV function and mild pulmonary hypertension. He had the stress test done in 2018 that showed no ischemia by EKG changes or by nuclear myocardial perfusion scan. Chest x-ray, currently no active cardiopulmonary disease. IMPRESSION/DIAGNOSES 1. Atypical chest pain for angina, especially because it is unlike his prior angina, which was on the top of his shoulders. 2. Coronary artery disease with stents. 3. Diabetes. 4. Constipation. 5. Dementia. 6. Chronic obstructive pulmonary disease Without exacerbation. 7. Chronic kidney disease. 8. Abnormal electrocardiogram, suggesting anteroseptal myocardial infarction; however, this has been refuted by virtue of no scar seen on stress testing and by normal wall motion on echo from 11 months ago. 9. Seizure disorder. 10. Anemia. 11. Elevated Lipase, possible phase rectant, since unlikley to have pancreatitis. PLAN: Place the patient in Observation status on telemetry. Cycle troponins x3 total. Start the patient on empiric Protonix and would recommend discharging home on this. With his level of dementia and with his chronic kidney disease, he would not undergo another coronary angiogram, therefore, no need for a stress test. Would recommend treating empirically with p.r.n. sublingual nitroglycerin at discharge with explanation to use it for shoulder symptoms, which are his typical angina. Continue with his diabetic management, seizure management, COPD management. Will order using sliding scale insulin coverage while here and a diabetic diet. The patient was advised to call his nurse to be evaluated here, if there is recurrence of his epigastric/low chest pain while here. Outpatient workup with EGD or upper GI could be considered after discharge. Recommend starting a bowel protocol for his complaints of constipation, which may also be adding to some of this epigastric discomfort. Will receheck another Lipase level regarding abdominal pain. DEEP VENOUS THROMBOSIS PROPHYLAXIS: SCDS. CODE STATUS: DNR. ATTESTATION: Patient is expected to be discharged or transferred to another facility within 96 hours: Yes. cc: Rony Keene MD TD: 09/26/2020 11:58 MTDD
--- NOTE | 2020-09-26 13:34 | Discharge Plan ---
Discharge Plan Problem Reviewed?: Yes Disposition: Home, Self Care Condition: Fair Diet: Cardiac Activity Restrictions: Activity as Tolerated Shower Restrictions: No Instruction Topics: Peptic Ulcer, Angina, Nitroglycerin Fast Acting, Tips Control Acid Reflux, Acid Reflux Health Concerns: You were placed in the hospital to Observe your complaint of upper stomach pain. Your blood test showed this was not a heart attack. You are being discharged with a new prescription to take daily for possible peptic ulcer disease and acid reflux. There is also a new prescription for nitroglycerin to put under your tongue if you should get the shoulder pain, which was your prior angina symptom. Please resume all your usual pre-hospital medications. You should see your PCP in the next 1 to 2 weeks for further evaluation and management if there is continued pain in that upper stomach area. You have tested positive for COVID, meaning you are carrier of the COVID virus. You need to stay in isolation for 10 days which means no traveling out of the house. Your needs to stay in quarantine for 14 days which means no traveling out of the house. The Department of Health will be calling you every day. Per the Department of Health, you may not have visitors in your house until you are finished with quarantine (14 days). Regarding the workers: the outdoor workers can continue but they should have no contact with you or your . The chimney worker should remain in the opposite part of the house and should have no contact with you or the . All of this will be discussed when the Department of [facility] calls you. Plan of Treatment: As above. Care Goals: Improvement in symptoms and stabilization are the goals. Assessment: These written instructions are provided as a reminder. No Smoking: If you smoke, Please STOP! Call for help. Follow-up with: Rony Keene MD [Primary Care Provider] -
[2020-09-26 15:59] VITALS: BP 143/63
--- NOTE | 2020-09-26 16:01 | DISCHARGE SUMMARY ---
Discharge Summary Admit Date: 09/26/20 Discharge Date: 09/26/20 Discharging Provider: Dr Janay Garcia Primary Care Provider: Dr Keene Code Status: Do Not Attempt Resuscitation Condition at Discharge: Fair Discharge Disposition: 01 Home, Self Care - HPI History of Present Illness: This is an 85-year-old patient with dementia, lives with his , has a history of DM, COPD, CKD and CAD with stenting done in 2011, 2013 in 2014. His last stress test was 2017 which showed normal LV function and no ischemia. The patient's angina was always shoulder pain. He presented after 1-1/2 days of intermittent epigastric pain which was not relieved with Gaviscon, not associated with exertion or following meals or during any certain body position. His pain head resolved by the time he was in the ER. His EKG was unremarkable. His abdominal exam was unremarkable. He was placed in Observation for evaluation of possible angina because of his history. - HOSPITAL COURSE Hospital Course: 1) Atypical chest pain. The patient had troponin labs done which were all normal at 4 and 4.5. His EKG had no changes from his previous EKGs. He had no epigastric pain while here. This was not felt to be his angina. He did not undergo a stress test because with dementia and CKD he would not have a coronary angiogram now. He was sent home with a new prescription for sublingual nitroglycerinto use prn angina, which is shoulder pain, for him, if it should recur. He was given a prescription for Protonix 40 mg p.o. daily for empiric treatment of GERD/PUD. He was advised to see his PCP in follow-up. 2) COVID positive. The hospital policy is to test every admitted patient with a rapid Covid test (PCR). Despite having no symptoms, this patient's Covid test returned positive. He was seen by the Infection Protection RN, Carey Oreilly. She reported this positive result to the Department of Health. The patient was discharged with instructions to isolate himself in the house for 10 days, have no visitors, the needs to isolate herself for 14 days per [facility] protocol, and they currently have construction happening in the house, thus they were advised to have no contact with the construction workers. The Department of Health will be contacting them daily. 3) Hx of CAD Was kept on his same medications including baby aspirin daily and statin. 4) Dementia The answered all the questions for him while here. He appears stable, has no behavioral disturbances. 5) Seizure history. He was kept on his same seizure medications. 6) DM He was kept on his Metformin and a diabetic diet while here. 7) CKD Creatinine was 1.4 at admission which is at his baseline, he is around 1.3-1.4 since October 2019. 8) Hx COPD He was kept on his Brio Ellipta while here. - ALLERGIES Allergies/Adverse Reactions: Allergies Allergy/AdvReac Type Severity Reaction Status Date / Time No Known Drug Allergies Allergy Verified 09/26/20 04:51 - MEDICATIONS Home Medications: Ambulatory Orders Medication Instructions Recorded Confirmed Aspirin [Aspir 81] 81 mg ORAL DAILY 12/13/14 09/26/20 Phenytoin [Dilantin] 200 mg PO QPM 04/02/20 09/26/20 Enalapril Maleate [Vasotec] 10 mg PO BID 09/26/20 09/26/20 Fluticasone/Vilanterol [Breo 1 puffs DAILY 09/26/20 09/26/20 Ellipta 100-25 Mcg INH] Nitroglycerin [Nitrostat] 0.4 mg SL Q5MIN PRN #100 tablet 09/26/20 Pantoprazole [Protonix] 40 mg PO DAILY #30 tablet 09/26/20 Pravastatin [Pravachol] 40 mg PO QPM 09/26/20 09/26/20 metFORMIN [Glucophage] 500 mg PO BID 09/26/20 09/26/20 - PHYSICAL EXAM AT DISCHARGE General Appearance: positive: No acute distress, Alert Eyes Bilateral: positive: Normal inspection, EOMI ENT: positive: ENT inspection nml, No signs of dehydration Neck: positive: Nml inspection, No JVD Respiratory: positive: No respiratory distress, Breath sounds nml Cardiovascular: positive: Regular rate & rhythm, No murmur Abdomen: positive: Non-tender, No distention Skin: positive: Warm, Dry Extremities: positive: No pedal edema Neurologic/Psychiatric: positive: Disoriented to time (No gross motor deficit.) - LABS Result Diagrams: 09/26/20 05:00 09/26/20 05:00 - DIAGNOSTIC IMAGING Diagnostic Imaging Results: Final report reviewed - FOLLOW UP Follow Up: See PCP for hospital follow-up. - TIME SPENT Time Spent in Discharge (Minutes): 30
[2020-09-26] MEDS ORDERED: metFORMIN 500 MG TABLET PO SCH (17:00)
[2020-09-26 19:55] LABS: HEMOGLOBIN A1c% 7.8 % (4.27-6.07)
[2020-09-26] MEDS ORDERED: PHENYTOIN ER 100 MG CAPSULE PO SCH (21:00)
[2020-09-26] MEDS ORDERED: PRAVASTATIN 40 MG TABLET PO SCH (21:00)
[2020-09-27] MEDS ORDERED: ASPIRIN EC 81 MG TABLET PO SCH (09:00)
[2020-09-27] MEDS ORDERED: ENALAPRIL 5 MG TABLET PO SCH (09:00)
== END 2020-09-26 16:40 | disposition home or self-care (01) ==
LOC: ED 04:37 → MS2 06:28
PROVIDERS: ADMIT Internal Medicine; ATTEND Internal Medicine
DX: R07.89 Other chest pain (principal); U07.1 COVID-19; I25.10 Atherosclerotic heart disease of native coronary artery without angina pectoris; F03.90 Unspecified dementia, unspecified severity, without behavioral disturbance, psychotic disturbance, mood disturbance, and anxiety; E11.22 Type 2 diabetes mellitus with diabetic chronic kidney disease; I12.9 Hypertensive chronic kidney disease with stage 1 through stage 4 chronic kidney disease, or unspecified chronic kidney disease; N18.9 Chronic kidney disease, unspecified; K59.00 Constipation, unspecified; J44.9 Chronic obstructive pulmonary disease, unspecified; G40.909 Epilepsy, unspecified, not intractable, without status epilepticus; Z95.5 Presence of coronary angioplasty implant and graft; D64.9 Anemia, unspecified; R74.8 Abnormal levels of other serum enzymes; K21.9 Gastro-esophageal reflux disease without esophagitis; K27.9 Peptic ulcer, site unspecified, unspecified as acute or chronic, without hemorrhage or perforation; Z66 Do not resuscitate; Z87.891 Personal history of nicotine dependence; Z79.82 Long term (current) use of aspirin; Z79.899 Other long term (current) drug therapy
CPT/HCPCS: 36415; 71045; 80053; 83036; 83690; 84484; 85025; 93005; 96372; 99284; 99285; A9270; G0378; U0004

== ENCOUNTER 2021-04-10 14:28 | Emergency (ER) | payer MEDICARE, OTHER ==
[2021-04-10 14:43] VITALS: BP 173/73
--- NOTE | 2021-04-10 14:59 | ED Physician Documentation ---
PD HPI CHEST PAIN - Stated complaint Stated Complaint: CP/VISION CHANGES - Chief complaint Chief Complaint: Cardiac - History obtained from History obtained from: Patient, Family - Additional information Additional information: 85-year-old gentleman presents accompanied by his . He has a history of dementia, coronary disease, seizure disorder which is well controlled, type 2 diabetes. He had not told the but stated on and off his vision had been going in and out in both eyes since yesterday and then had a very brief seconds long episode of stabbing chest pain today. Now he is asymptomatic. 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: Other Cardiovascular: Coronary stent HEENT: Cataracts - Present Medications Home Medications: Ambulatory Orders Medication Instructions Recorded Confirmed Aspirin [Aspir 81] 81 mg ORAL DAILY 12/13/14 09/26/20 Phenytoin [Dilantin] 200 mg PO QPM 04/02/20 09/26/20 Enalapril Maleate [Vasotec] 10 mg PO BID 09/26/20 09/26/20 Fluticasone/Vilanterol [Breo 1 puffs DAILY 09/26/20 09/26/20 Ellipta 100-25 Mcg INH] Nitroglycerin [Nitrostat] 0.4 mg SL Q5MIN PRN #100 tablet 09/26/20 Pantoprazole [Protonix] 40 mg PO DAILY #30 tablet 09/26/20 Pravastatin [Pravachol] 40 mg PO QPM 09/26/20 09/26/20 metFORMIN [Glucophage] 500 mg PO BID 09/26/20 09/26/20 - Allergies Allergies/Adverse Reactions: Allergies Allergy/AdvReac Type Severity Reaction Status Date / Time No Known Drug Allergies Allergy Verified 04/10/21 14:49 - Social History Does the pt smoke?: No Smoking Status: Never smoker Does the pt drink ETOH?: No Does the pt have substance abuse?: No - POLST Patient has POLST: Yes POLST Status: DNR (In his chart in the office there is a statement from April 2017 that he is not to receive any artificial life support. confirms this and says that there is paperwork at home that he wants to be DO NOT RESUSCITATE.) PD ED PE NORMAL - Vitals Vital signs reviewed: Yes - General General: No acute distress, Other (And oriented to person and place and events but not time, defers to the for most questions) - HEENT HEENT: PERRL, EOMI - Neck Neck: Supple, no meningeal sign, No bony TTP - Cardiac Cardiac: RRR, No murmur - Respiratory Respiratory: No respiratory distress, Clear bilaterally - Abdomen Abdomen: Soft, Non tender - Derm Derm: Normal color, Warm and dry - Extremities Extremities: No edema, No calf tenderness / cord - Neuro Neuro: No motor deficit, No sensory deficit Results - Vitals Vitals: Vital Signs - 24 hr 04/10/21 04/10/21 14:36 14:43 Temperature 36.4 C L 36.5 C Heart Rate 77 77 Respiratory 16 16 Rate Blood Pressure 173/73 H 173/73 H O2 Saturation 99 99 Oxygen O2 Source Room air - EKG (time done) 1449 Rate: Rate (enter#) (70) Rhythm: NSR (w pvcs) Advance: Normal QRS: Low voltage Ischemia: Q waves (vicente/septal). No: ST elevation c/w ischemia, ST depression - Labs Labs: Laboratory Tests 04/10/21 04/10/21 04/10/21 15:15 15:15 15:15 WBC 6.3 RBC 4.70 Hgb 12.5 L Hct 39.8 L MCV 84.7 MCH 26.6 L MCHC 31.4 L RDW 14.1 Plt Count 244 MPV 9.5 Neut # (Auto) 4.6 Lymph # (Auto) 1.0 L [place] # (Auto) 0.5 Eos # (Auto) 0.1 Baso # (Auto) 0.0 Absolute Nucleated RBC 0.00 Nucleated RBC % 0.0 Sodium 138 Potassium 4.4 Chloride 102 Carbon Dioxide 26 Anion Gap 10.0 BUN 25 H Creatinine 1.2 Estimated GFR (MDRD) 57 L Glucose 177 H Calcium 9.4 Total Bilirubin 0.6 AST 16 ALT 11 Alkaline Phosphatase 67 Troponin I High Sens 4.0 Total Protein 6.8 Albumin 4.2 Globulin 2.6 Albumin/Globulin Ratio 1.6 Lipase 39 Phenytoin 2.6 PD MEDICAL DECISION MAKING - ED course ED course: This is a kasia 85-year-old gentleman who has a history of coronary disease, dementia. He was having on and off visual issues over the last couple of days in both eyes. And then today had a very short episode of atypical chest pain. There is no evidence of cardiac dysfunction on work-up here. As a courtesy his Dilantin level was checked and is below the therapeutic range and this was discussed with the patient and his . Departure - Departure Disposition: 01 Home, Self Care Clinical Impression: Atypical chest pain Condition: Good Record reviewed to determine appropriate education?: Yes Instructions: ED Chest Pain NonCardiac Comments: Your Dilantin level today is low at 2.6. This may have contributed to his recent seizure. That said a review of the records shows that your Dilantin level has always been on the low end of the range, prior values were 2.9 and 3.9. Discussed this with your neurologist, they may or may not want to make dosing changes. Call your doctor to arrange a follow-up appointment, make the next available appointment. In the interim, return anytime if worse or if new symptoms develop.
[2021-04-10 15:23] LABS: BASOPHILS % (AUTO) 0.3 %; EOSINOPHILS # (AUTO) 0.1 10^3/uL (0.0-0.7); EOSINOPHILS % (AUTO) 1.8 %; HCT - HEMATOCRIT 39.8 % (42.0-52.0); HGB - HEMOGLOBIN 12.5 g/dL (14.0-18.0); LYMPHOCYTES % (AUTO) 16.6 %; MEAN CORPUSCULAR HEMOGLOBIN 26.6 pg (27.0-31.0); MEAN CORPUSCULAR HGB CONC 31.4 g/dL (32.0-36.0); MEAN CORPUSCULAR VOLUME 84.7 fL (80.0-94.0); MEAN PLATELET VOLUME 9.5 fL (7.4-11.4); MONOCYTES # (AUTO) 0.5 10^3/uL (0.0-1.0); MONOCYTES % (AUTO) 7.8 %; NEUTROPHILS # (AUTO) 4.6 10^3/uL (1.5-6.6); NEUTROPHILS % (AUTO) 73.3 %; PLT - PLATELET COUNT 244 10^3/uL (130-450); RED CELL DISTRIBUTION WIDTH 14.1 % (12.0-15.0); WHITE BLOOD COUNT 6.3 x10^3/uL (4.8-10.8)
--- NOTE | 2021-04-10 15:24 | XRAY Report ---
PROCEDURE: Chest 1 View X-Ray INDICATIONS: Chest Pain TECHNIQUE: One view of the chest was acquired. COMPARISON: 09/26/2020 FINDINGS: Surgical changes and devices: None. Lungs and pleura: No pleural effusions or pneumothorax. Lungs are clear. Mediastinum: Mediastinal contours appear normal. Heart size is normal. Bones and chest wall: No suspicious bony lesions. Overlying soft tissues appear unremarkable. IMPRESSION: No acute cardiopulmonary pathology. Reviewed by: Josiah Hurst MD on 04/10/2021 3:23 PM PDT Approved by: Josiah Hurst MD on 04/10/2021 3:23 PM PDT Station ID: [id number]
[2021-04-10 15:38] LABS: ALBUMIN 4.2 g/dL (3.2-5.5); ALBUMIN/GLOBULIN RATIO 1.6 (1.0-2.2); BILIRUBIN,TOTAL 0.6 mg/dL (0.2-1.0); CALCIUM 9.4 mg/dL (8.5-10.3); CREATININE 1.2 mg/dL (0.6-1.2); PHENYTOIN (DILANTIN) 2.6 ug/mL; POTASSIUM 4.4 mmol/L (3.5-5.0); TOTAL PROTEIN 6.8 g/dL (6.7-8.2)
== END 2021-04-10 16:08 | disposition home or self-care (01) ==
LOC: ED 14:28
DX: R07.89 Other chest pain (principal); F03.90 Unspecified dementia, unspecified severity, without behavioral disturbance, psychotic disturbance, mood disturbance, and anxiety; I10 Essential (primary) hypertension; E11.9 Type 2 diabetes mellitus without complications; Z79.84 Long term (current) use of oral hypoglycemic drugs; Z66 Do not resuscitate
CPT/HCPCS: 36415; 80053; 80185; 83690; 84484; 85025; 93005; 99281; 99284

== ENCOUNTER 2021-06-15 17:52 | Emergency (ER) | payer MEDICARE ==
[2021-06-15 18:44] LABS: BILIRUBIN,URINE NEGATIVE (NEGATIVE); GLUCOSE, URINE (UA) NEGATIVE (NEGATIVE); KETONES,URINE (UA) NEGATIVE (NEGATIVE); LEUKOCYTE ESTERASE, URINE NEGATIVE (NEGATIVE); NITRITE,URINE NEGATIVE (NEGATIVE); OCCULT BLOOD,URINE NEGATIVE (NEGATIVE); PH,URINE 5.5 PH (5.0-7.5); PROTEIN,URINE TRACE mg/dL (NEGATIVE); UROBILINOGEN,URINE 0.2 (NORMAL) E.U./dL (NORMAL)
[2021-06-15 18:45] LABS: CLARITY,URINE CLEAR (CLEAR)
[2021-06-15 19:44] LABS: BASOPHILS % (AUTO) 0.6 %; EOSINOPHILS # (AUTO) 0.1 10^3/uL (0.0-0.7); EOSINOPHILS % (AUTO) 1.8 %; HCT - HEMATOCRIT 36.8 % (42.0-52.0); HGB - HEMOGLOBIN 11.6 g/dL (14.0-18.0); LYMPHOCYTES # (AUTO) 1.6 10^3/uL (1.5-3.5); LYMPHOCYTES % (AUTO) 23.8 %; MEAN CORPUSCULAR HEMOGLOBIN 26.5 pg (27.0-31.0); MEAN CORPUSCULAR HGB CONC 31.5 g/dL (32.0-36.0); MEAN CORPUSCULAR VOLUME 84.2 fL (80.0-94.0); MEAN PLATELET VOLUME 9.8 fL (7.4-11.4); MONOCYTES # (AUTO) 0.6 10^3/uL (0.0-1.0); MONOCYTES % (AUTO) 9.7 %; NEUTROPHILS # (AUTO) 4.2 10^3/uL (1.5-6.6); NEUTROPHILS % (AUTO) 63.8 %; PLT - PLATELET COUNT 237 10^3/uL (130-450); RED BLOOD COUNT 4.37 10^6/uL (4.70-6.10); RED CELL DISTRIBUTION WIDTH 14.5 % (12.0-15.0); WHITE BLOOD COUNT 6.6 x10^3/uL (4.8-10.8)
[2021-06-15 19:53] LABS: CALCIUM 9.6 mg/dL (8.5-10.3); CREATININE 1.5 mg/dL (0.6-1.2); POTASSIUM 4.5 mmol/L (3.5-5.0)
--- NOTE | 2021-06-15 19:56 | ED Physician Documentation ---
History of Present Illness - Stated complaint Stated Complaint: unable to urinate - Chief complaint Chief Complaint: Abd Pain - History obtained from History obtained from: Patient, Family () - Additonal information Additional information: 86-year-old man with history of dementia, seizure disorder, prostate enlargement, presents with inability to urinate since 10 AM. He has been drinking normally during the day and otherwise feels fine. Denies abdominal pain, back pain, hematuria or other symptoms. Review of Systems Constitutional: denies: Fever, Chills GI: reports: Constipation (intermittent constipation). denies: Abdominal Pain, Nausea, Vomiting, Diarrhea : reports: Unable to Void. 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 Cardiovascular: Coronary stent HEENT: Cataracts - Present Medications Home Medications: Ambulatory Orders Medication Instructions Recorded Confirmed Aspirin [Aspir 81] 81 mg ORAL DAILY 12/13/14 06/15/21 Phenytoin [Dilantin] 100 mg PO QPM 04/02/20 06/15/21 Enalapril Maleate [Vasotec] 10 mg PO BID 09/26/20 06/15/21 Fluticasone/Vilanterol [Breo 1 puffs DAILY 09/26/20 06/15/21 Ellipta 100-25 Mcg INH] Nitroglycerin [Nitrostat] 0.4 mg SL Q5MIN PRN #100 tablet 09/26/20 06/15/21 Pravastatin [Pravachol] 40 mg PO QPM 09/26/20 06/15/21 metFORMIN [Glucophage] 500 mg PO BID 09/26/20 06/15/21 Omeprazole [PriLOSEC] 20 mg PO DAILY 06/15/21 06/15/21 amLODIPine [Norvasc] 5 mg PO DAILY #30 tablet 06/15/21 - Allergies Allergies/Adverse Reactions: Allergies Allergy/AdvReac Type Severity Reaction Status Date / Time No Known Drug Allergies Allergy Verified 06/15/21 18:03 - Social History Does the pt smoke?: No Smoking Status: Never smoker Does the pt drink ETOH?: No Does the pt have substance abuse?: No - POLST Patient has POLST: Yes POLST Status: DNR (In his chart in the office there is a statement from April 2017 that he is not to receive any artificial life support. confirms this and says that there is paperwork at home that he wants to be DO NOT RESUSCITATE.) PD ED PE NORMAL - Vitals Vital signs reviewed: Yes - General General: No acute distress, Well developed/nourished, Other (Alert and mentating at baseline) - HEENT HEENT: Atraumatic, PERRL, EOMI - Neck Neck: Supple, no meningeal sign - Abdomen Abdomen: Non tender, Non distended - Back Back: No CVA TTP - Derm Derm: Normal color, Warm and dry - Extremities Extremities: No deformity - Neuro Neuro: No motor deficit, No sensory deficit - Psych Psych: Normal mood, Normal affect Results - Vitals Vitals: Vital Signs - 24 hr 06/15/21 06/15/21 18:03 19:59 Temperature 36.3 C L Heart Rate 75 62 Respiratory 18 16 Rate Blood Pressure 129/78 179/61 H O2 Saturation 95 100 Oxygen O2 Source Room air - Labs Labs: Laboratory Tests 06/15/21 06/15/21 06/15/21 18:26 19:40 19:40 WBC 6.6 RBC 4.37 L Hgb 11.6 L Hct 36.8 L MCV 84.2 MCH 26.5 L MCHC 31.5 L RDW 14.5 Plt Count 237 MPV 9.8 Neut # (Auto) 4.2 Lymph # (Auto) 1.6 [place] # (Auto) 0.6 Eos # (Auto) 0.1 Baso # (Auto) 0.0 Absolute Nucleated RBC 0.00 Nucleated RBC % 0.0 Sodium 139 Potassium 4.5 Chloride 103 Carbon Dioxide 24 Anion Gap 12.0 BUN 30 H Creatinine 1.5 H Estimated GFR (MDRD) 44 L Glucose 126 H Calcium 9.6 Urine Color YELLOW Urine Clarity CLEAR Urine pH 5.5 Ur Specific [place] 1.025 Urine Protein TRACE Urine Glucose (UA) NEGATIVE Urine Ketones NEGATIVE Urine Occult Blood NEGATIVE Urine Nitrite NEGATIVE Urine Bilirubin NEGATIVE Urine Urobilinogen 0.2 (NORMAL) Ur Leukocyte Esterase NEGATIVE Ur Microscopic Review NOT INDICATED Urine Culture Comments NOT INDICATED PD MEDICAL DECISION MAKING - ED course ED course: 86-year-old man presents with inability to urinate since 10 AM. Bladder scan with only a small amount of urine and Vincent with return of very small amount of straw-colored urine initially. After about half an hour patient only has 100 mL in the bag. No signs of infection on urinalysis. Will check kidney function and reevaluate. Patient without significant abnormality on labwork. very mild rodolfo d/w patient and family. he is tolerating po and I educated on need for hydration at home. return precautions given. f/u pmd. Departure - Departure Disposition: 01 Home, Self Care Clinical Impression: Hesitancy, RODOLFO (acute kidney injury) Condition: Good Instructions: ED Prostate Enlarged Prescriptions: amLODIPine [Norvasc] 5 mg PO DAILY #30 tablet Comments: You were seen in the emergency department for inability to urinate. A Vincent was placed and drained a very small amount of urine. Please make it a goal to drink 8 to 10 glasses of water daily. Return to the emergency department if you have any new or worsening symptoms or other concerns. I am temporarily going to switch you from enalapril to amlodipine since enalapril can harm the kidneys. Follow-up with your primary doctor in regards to these changes and take their direction for future blood pressure and kidney management.
[2021-06-15 20:40] VITALS: BP 155/80
== END 2021-06-15 20:38 | disposition home or self-care (01) ==
LOC: ED 17:52
DX: N40.1 Benign prostatic hyperplasia with lower urinary tract symptoms (principal); R33.8 Other retention of urine; R39.11 Hesitancy of micturition; N17.9 Acute kidney failure, unspecified; F03.90 Unspecified dementia, unspecified severity, without behavioral disturbance, psychotic disturbance, mood disturbance, and anxiety; G40.909 Epilepsy, unspecified, not intractable, without status epilepticus; I10 Essential (primary) hypertension; E11.9 Type 2 diabetes mellitus without complications; Z79.84 Long term (current) use of oral hypoglycemic drugs; Z79.82 Long term (current) use of aspirin; Z66 Do not resuscitate
CPT/HCPCS: 36415; 51702; 80048; 81001; 81003; 85025; 87086; 99283

== ENCOUNTER 2021-07-07 12:55 | Outpatient (CLI) | payer MEDICARE ==
--- NOTE | 2021-07-07 16:41 | Ultrasound Report ---
PROCEDURE: Bladder INDICATIONS: BENIGN PROSTATIC HYPERPLASIA WITH LOWER URINARY TR TECHNIQUE: Examination of the urinary bladder contained COMPARISON: None. FINDINGS: Urinary bladder shows a prevoid volume of 224 cc. Postvoid volume 15 cc. Bladder wall is appropriate in thickness. Prostate measures 2.5 x 4.6 x 3.8 cm. Bilateral renal jets noted. IMPRESSION: Prostatic hypertrophy without evidence of urinary retention Reviewed by: Russ Tracey MD on 07/07/2021 3:40 PM AKDT Approved by: Russ Tracey MD on 07/07/2021 3:40 PM AKDT Station ID: [id number]
== END 2021-07-07 12:56 | disposition home or self-care (01) ==
LOC: DI 12:55
PROVIDERS: ATTEND Family Medicine
DX: N40.1 Benign prostatic hyperplasia with lower urinary tract symptoms (principal); R33.9 Retention of urine, unspecified

== ENCOUNTER 2021-07-18 16:22 | Outpatient (CLI) | payer MEDICARE ==
--- NOTE | 2021-07-19 11:49 | XRAY Report ---
PROCEDURE: Shoulder 3 View LT INDICATIONS: CONTUSION OF L SHOULDER TECHNIQUE: 3 views of the shoulder were acquired. COMPARISON: None. FINDINGS: Bones: No fractures or dislocations. No suspicious bony lesions. Visualized ribs appear intact. T here is mild articular osteophyte formation at the acromioclavicular and glenohumeral joints. Soft tissues: No suspicious soft tissue calcifications. IMPRESSION: Osteoarthritis. No acute fracture. No osseous lesion. If symptoms and/or clinical suspic ion for pathology continue, further assessment with repeat plain films, or advanced imaging (e.g., CT , MRI, or bone scan) is recommended for further assessment. Reviewed by: Layla Purdy MD on 07/19/2021 11:47 AM PDT Approved by: Layla Purdy MD on 07/19/2021 11:47 AM PDT Station ID: [id number]
== END 2021-07-18 16:23 | disposition home or self-care (01) ==
LOC: DI.N 16:22
PROVIDERS: ATTEND Family Medicine
DX: S40.012A Contusion of left shoulder, initial encounter (principal); M19.012 Primary osteoarthritis, left shoulder

== ENCOUNTER 2022-01-01 11:53 | Emergency (ER) | payer MEDICARE ==
[2022-01-01 12:26] LABS: BASOPHILS % (AUTO) 0.4 %; EOSINOPHILS # (AUTO) 0.1 10^3/uL (0.0-0.7); EOSINOPHILS % (AUTO) 0.9 %; HCT - HEMATOCRIT 38.9 % (42.0-52.0); HGB - HEMOGLOBIN 12.2 g/dL (14.0-18.0); LYMPHOCYTES # (AUTO) 1.4 10^3/uL (1.5-3.5); LYMPHOCYTES % (AUTO) 17.8 %; MEAN CORPUSCULAR HEMOGLOBIN 26.1 pg (27.0-31.0); MEAN CORPUSCULAR HGB CONC 31.4 g/dL (32.0-36.0); MEAN CORPUSCULAR VOLUME 83.3 fL (80.0-94.0); MONOCYTES # (AUTO) 0.6 10^3/uL (0.0-1.0); MONOCYTES % (AUTO) 7.6 %; NEUTROPHILS # (AUTO) 5.9 10^3/uL (1.5-6.6); NEUTROPHILS % (AUTO) 73.2 %; PLT - PLATELET COUNT 314 10^3/uL (130-450); RED BLOOD COUNT 4.67 10^6/uL (4.70-6.10); RED CELL DISTRIBUTION WIDTH 14.2 % (12.0-15.0)
[2022-01-01 12:39] LABS: ALBUMIN 3.9 g/dL (3.2-5.5); ALBUMIN/GLOBULIN RATIO 1.4 (1.0-2.2); BILIRUBIN,TOTAL 0.3 mg/dL (0.2-1.0); CREATININE 1.2 mg/dL (0.6-1.2); POTASSIUM 3.9 mmol/L (3.5-5.0); TOTAL PROTEIN 6.7 g/dL (6.7-8.2)
--- NOTE | 2022-01-01 12:39 | XRAY Report ---
PROCEDURE: Chest 1 View X-Ray INDICATIONS: Chest pain TECHNIQUE: One view of the chest was acquired. COMPARISON: CXR 04/10/2021, 09/26/2020. Lung bases on CT abdomen and pelvis 04/02/2020. FINDINGS: Surgical changes and devices: None. Lungs and pleura: No pleural effusions or pneumothorax. Right middle lobe calcified granuloma measu ring 1 cm is unchanged. No consolidation. Mediastinum: Mediastinal contours appear normal. Heart size is normal. Bones and chest wall: No suspicious bony lesions. Overlying soft tissues appear unremarkable. IMPRESSION: No acute cardiopulmonary abnormality. Reviewed by: Vickey Rodriguez MD on 01/01/2022 12:38 PM PST Approved by: Vickey Rodriguez MD on 01/01/2022 12:38 PM PST Station ID: [id number]
[2022-01-01] MEDS ORDERED: MAG HYDROX/AL HYDROX/SIMETH 30 ML UDC PO STA (13:02)
[2022-01-01] MEDS ORDERED: LIDOCAINE VISCOUS 2% 15 ML UDC MM STA (13:02)
--- NOTE | 2022-01-01 13:07 | ED Physician Documentation ---
PD HPI CHEST PAIN - Stated complaint Stated Complaint: CHEST PX/HEART BURN - Chief complaint Chief Complaint: Cardiac - History obtained from History obtained from: Patient - History of Present Illness Timing - onset: How many days ago (3) Timing - onset during: Rest Timing - duration: Days (3) Timing - details: Gradual onset, Still present, Waxing and waning Quality: Sharp, Other (burning) Location: Substernal Radiation: Neck Improved by: Other (The patient can sit up to reduce symptoms.) Worsened by: Other (laying supine) Associated symptoms: No: Shortness of air, Diaphoresis, Nausea, Vomiting, Feeling faint / dizzy Similar symptoms before: Diagnosis (gerd) Recently seen: Clinic - Additional information Additional information: 86-year-old male has begun to develop some symptoms of reflux with heartburn daily. He is having these symptoms mostly when he lays down at night. He has not found improvement with the use of cimetidine twice per day. He has persistence of the symptoms and comes to the emergency department. Review of Systems Constitutional: denies: Fever Eyes: denies: Decreased vision Ears: denies: Ear pain Nose: denies: Congestion Throat: denies: Sore throat Cardiac: reports: Chest pain / pressure. denies: Palpitations Respiratory: denies: Dyspnea, Cough GI: denies: Abdominal Pain, Nausea, Vomiting, Constipation, Diarrhea : denies: Dysuria PD PAST MEDICAL HISTORY - Past Medical History Cardiovascular: Hypertension, High cholesterol, Coronary artery disease, Deep vein thrombosis, Angina Respiratory: COPD Neuro: Dementia, TIA, Seizure disorder Endocrine/Autoimmune: Type 2 diabetes GI: GERD : Benign prostate hypertrophy, Nocturia, Frequency HEENT: Chronic vision loss, Glaucoma, Chronic hearing loss Psych: Depression Musculoskeletal: Osteoarthritis, Chronic back pain Derm: Other - Past Surgical History Past Surgical History: Yes General: 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 Cardiovascular: Coronary stent HEENT: Cataracts - Present Medications Home Medications: Ambulatory Orders Medication Instructions Recorded Confirmed Aspirin [Aspir 81] 81 mg ORAL DAILY 12/13/14 01/01/22 Phenytoin [Dilantin] 100 mg PO QPM 04/02/20 01/01/22 Pravastatin [Pravachol] 40 mg PO QPM 09/26/20 01/01/22 metFORMIN [Glucophage] 500 mg PO BID 09/26/20 01/01/22 amLODIPine [Norvasc] 5 mg PO DAILY #30 tablet 06/15/21 01/01/22 Cimetidine 400 mg PO BID 01/01/22 01/01/22 Omeprazole 40 mg PO DAILY #40 cap 01/01/22 Sucralfate [Carafate] 1 gm PO ACHS #60 tablet 01/01/22 - Allergies Allergies/Adverse Reactions: Allergies Allergy/AdvReac Type Severity Reaction Status Date / Time No Known Drug Allergies Allergy Verified 01/01/22 12:13 - Social History Does the pt smoke?: No Smoking Status: Never smoker Does the pt drink ETOH?: No Does the pt have substance abuse?: No - POLST Patient has POLST: Yes POLST Status: DNR (In his chart in the office there is a statement from April 2017 that he is not to receive any artificial life support. confirms this and says that there is paperwork at home that he wants to be DO NOT RESUSCITATE.) PD ED PE NORMAL - Vitals Vital signs reviewed: Yes (hyertensive) - General General: No acute distress, Well developed/nourished, Other (defers to ) - HEENT HEENT: Atraumatic, PERRL, EOMI - Neck Neck: Supple, no meningeal sign, No bony TTP - Cardiac Cardiac: RRR, No murmur - Respiratory Respiratory: No respiratory distress, Clear bilaterally - Abdomen Abdomen: Normal bowel sounds, Soft, Non tender, Non distended, No organomegaly - Back Back: No CVA TTP, No spinal TTP - Derm Derm: Normal color, Warm and dry, No rash - Extremities Extremities: No deformity, No edema - Neuro 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 2-12 intact, No motor deficit, No sensory deficit, Normal speech Eye Opening: Spontaneous Motor: Obeys Commands Verbal: Confused GCS Score: 14 - Psych Psych: Normal mood, Normal affect Results - Vitals Vitals: Vital Signs - 24 hr 01/01/22 01/01/22 01/01/22 12:07 12:30 13:00 Temperature 36.5 C Heart Rate 67 64 58 L Respiratory 21 22 24 Rate Blood Pressure 172/76 H 164/74 H 134/97 H O2 Saturation 100 100 98 01/01/22 01/01/22 01/01/22 13:30 14:00 14:30 Temperature Heart Rate 57 L 59 L 58 L Respiratory 20 23 18 Rate Blood Pressure 143/61 H 126/71 162/69 H O2 Saturation 99 98 99 Oxygen O2 Source Room air - EKG (time done) 1203 Rate: Rate (enter#) (64) Rhythm: NSR Ischemia: Non specific changes (T's are flat laterally ) Compare to prior EKG: Changed from prior EKG (SPT 04-10-21 Lateral T wave morphology has flattened. ) Computer interpretation: Disagree with computer (I see sinus ) - Labs Labs: Laboratory Tests 01/01/22 01/01/22 01/01/22 12:20 12:20 12:20 WBC 8.0 RBC 4.67 L Hgb 12.2 L Hct 38.9 L MCV 83.3 MCH 26.1 L MCHC 31.4 L RDW 14.2 Plt Count 314 MPV 10.0 Neut # (Auto) 5.9 Lymph # (Auto) 1.4 L [place] # (Auto) 0.6 Eos # (Auto) 0.1 Baso # (Auto) 0.0 Absolute Nucleated RBC 0.00 Nucleated RBC % 0.0 Sodium 134 L Potassium 3.9 Chloride 101 Carbon Dioxide 25 Anion Gap 8.0 BUN 22 H Creatinine 1.2 Estimated GFR (MDRD) 57 L Glucose 155 H Calcium 9.0 Total Bilirubin 0.3 AST 18 ALT 13 Alkaline Phosphatase 72 Troponin I High Sens 5.7 Total Protein 6.7 Albumin 3.9 Globulin 2.8 Albumin/Globulin Ratio 1.4 Lipase 219 H Phenytoin 01/01/22 12:20 WBC RBC Hgb Hct MCV MCH MCHC RDW Plt Count MPV Neut # (Auto) Lymph # (Auto) [place] # (Auto) Eos # (Auto) Baso # (Auto) Absolute Nucleated RBC Nucleated RBC % Sodium Potassium Chloride Carbon Dioxide Anion Gap BUN Creatinine Estimated GFR (MDRD) Glucose Calcium Total Bilirubin AST ALT Alkaline Phosphatase Troponin I High Sens Total Protein Albumin Globulin Albumin/Globulin Ratio Lipase Phenytoin < 2.5 PD MEDICAL DECISION MAKING - ED course Complexity details: reviewed results, re-evaluated patient, considered differential, d/w patient, d/w family ED course: -year-old male with advanced dementia presents to the emerge department with heartburn symptoms. He has relief of his symptoms with the use of viscous lidocaine Mylanta. He is subsequently administered Protonix 40 mg intravenously and Carafate. We will place him on a short course of omeprazole and Carafate. He does have a son who is bringing over bowls full of M&Ms and the patient is eating these in excess. His is wondering if this might be was causing his heartburn. It certainly could be. Departure - Departure Disposition: 01 Home, Self Care Clinical Impression: Reflux esophagitis Qualifiers: Esophagitis bleeding: without hemorrhage Qualified Code(s): K21.00 - Gastro- esophageal reflux disease with esophagitis, without bleeding Condition: Stable Instructions: ED GERD Follow-Up: Freeman Velasquez DO [Primary Care Provider] - Prescriptions: Sucralfate [Carafate] 1 gm PO ACHS #60 tablet Omeprazole 40 mg PO DAILY #40 cap Comments: Joey, today it looks like you are having "reflux" symptoms and the mainstay of treatment it to reduce the acid in the stomach. We have prescribed omeprezole to reduce the acid and we have added in carafate --- something to coat the stomach and esophagus and aid in healing. These medications have been e-scribed to [facility] [place]. Discharge Date/Time: 01/01/22 14:42
[2022-01-01] MEDS ORDERED: PANTOPRAZOLE 40 MG VIAL IVP STA (13:35)
[2022-01-01] MEDS ORDERED: SUCRALFATE 1 GM/10 ML UDC PO STA (13:35)
[2022-01-01 14:36] VITALS: BP 162/69
== END 2022-01-01 14:42 | disposition home or self-care (01) ==
LOC: ED 11:53
DX: K21.00 Gastro-esophageal reflux disease with esophagitis, without bleeding (principal); I10 Essential (primary) hypertension; Z86.718 Personal history of other venous thrombosis and embolism; E11.9 Type 2 diabetes mellitus without complications; Z79.84 Long term (current) use of oral hypoglycemic drugs; Z95.5 Presence of coronary angioplasty implant and graft; Z66 Do not resuscitate; F03.90 Unspecified dementia, unspecified severity, without behavioral disturbance, psychotic disturbance, mood disturbance, and anxiety
CPT/HCPCS: 36415; 71045; 80053; 80185; 83690; 84484; 85025; 93005; 96374; 99284; A9270

== ENCOUNTER 2023-01-03 13:10 | Outpatient (CLI) | payer MEDICARE | END 2023-01-03 13:11 | disposition home or self-care (01) | LOC: RT 13:10 | PROVIDERS: ATTEND Family Medicine | DX: Z53.9 Procedure and treatment not carried out, unspecified reason (principal) ==

== ENCOUNTER 2023-02-13 14:33 | Outpatient (CLI) | payer MEDICARE | END 2023-02-13 23:59 | disposition critical access hospital (66) | LOC: EMS 14:33 | DX: S30.0XXA Contusion of lower back and pelvis, initial encounter (principal); R53.1 Weakness; R63.8 Other symptoms and signs concerning food and fluid intake; W19.XXXA Unspecified fall, initial encounter | CPT/HCPCS: A0425; A0429 ==

== ENCOUNTER 2023-02-13 14:54 | Emergency (ER) | payer MEDICARE ==
--- NOTE | 2023-02-13 15:03 | ED Physician Documentation ---
History of Present Illness - Stated complaint Stated Complaint: GLF - History obtained from History obtained from: EMS - Additonal information Additional information: 87-year-old gentleman with severe dementia brought in from dementia unit. Reportedly had fallen maybe yesterday. Details of any fall are unclear but there is some bruising on the left flank. Per EMS, from whom all the original history was taken because the patient is altered and demented, he was reportedly recently admitted somewhere for something and not expected to live this long. Details are few pending the 's arrival. PD PAST MEDICAL HISTORY - Past Medical History Cardiovascular: Hypertension, High cholesterol, Coronary artery disease, Deep vein thrombosis, Angina Respiratory: COPD Neuro: Dementia, TIA, Seizure disorder Endocrine/Autoimmune: Type 2 diabetes GI: GERD : Benign prostate hypertrophy, Nocturia, Frequency HEENT: Chronic vision loss, Glaucoma, Chronic hearing loss Psych: Depression Musculoskeletal: Osteoarthritis, Chronic back pain Derm: Other - Past Surgical History Past Surgical History: Yes General: Other Ortho: Hip replacement /[employer]: Other Cardiovascular: Coronary stent HEENT: Cataracts - Present Medications Home Medications: Ambulatory Orders Medication Instructions Recorded Confirmed Aspirin [Aspir 81] 81 mg ORAL DAILY 12/13/14 01/01/22 Phenytoin [Dilantin] 100 mg PO QPM 04/02/20 01/01/22 Pravastatin [Pravachol] 40 mg PO QPM 09/26/20 01/01/22 metFORMIN [Glucophage] 500 mg PO BID 09/26/20 01/01/22 amLODIPine [Norvasc] 5 mg PO DAILY #30 tablet 06/15/21 01/01/22 Cimetidine 400 mg PO BID 01/01/22 01/01/22 Omeprazole 40 mg PO DAILY #40 cap 01/01/22 Sucralfate [Carafate] 1 gm PO ACHS #60 tablet 01/01/22 - Allergies Allergies/Adverse Reactions: Allergies Allergy/AdvReac Type Severity Reaction Status Date / Time No Known Drug Allergies Allergy Verified 01/01/22 12:13 - Social History Does the pt smoke?: No Smoking Status: Never smoker Does the pt drink ETOH?: No Does the pt have substance abuse?: No - POLST Patient has POLST: Yes POLST Status: DNR (In his chart in the office there is a statement from April 2017 that he is not to receive any artificial life support. confirms this and says that there is paperwork at home that he wants to be DO NOT RESUSCITATE. ) PD ED PE NORMAL - Vitals Vital signs reviewed: Yes - General General: Other (Laying right lateral decubitus, incoherent mumbling and keeping his eyes closed. Not following directions.) - HEENT HEENT: Other (Unable to evaluate pupils as he resists opening of the eyes and keeping his lids forcibly closed shut) - Neck Neck: Supple, no meningeal sign, No bony TTP - Cardiac Cardiac: RRR, No murmur - Respiratory Respiratory: No respiratory distress, Clear bilaterally - Abdomen Abdomen: Other (He seems to have some diffuse abdominal tenderness.) - Back Back: No spinal TTP, Other (Bruising left posterior axillary line near the low ribs.) - Neuro Eye Opening: None Motor: Localizes to Pain Verbal: Incomprehensible GCS Score: 8 Results - Vitals Vitals: Vital Signs - 24 hr 02/13/23 02/13/23 02/13/23 15:05 15:30 18:00 Temperature 36.6 C Heart Rate 80 94 78 Respiratory 18 26 H 28 H Rate Blood Pressure 171/106 H 171/106 H 147/76 H O2 Saturation 100 99 100 If not protocol 2 : Oxygen Flow, liters/minute 02/13/23 18:51 Temperature Heart Rate Respiratory Rate Blood Pressure O2 Saturation 100 If not protocol : Oxygen Flow, liters/minute Oxygen O2 Source Room air - EKG (time done) 1608 EKG releavant findings:: EKG personally interpreted by author of this note. Relevant findings are: Rate: Rate (enter#) (78) Rhythm: NSR (w pvs), LAE Intervals: Normal [place] Ischemia: Non specific changes. No: ST elevation c/w ischemia, ST depression - Labs Labs: Laboratory Tests 02/13/23 02/13/23 02/13/23 15:19 15:19 15:19 WBC 14.4 H RBC 4.93 Hgb 12.0 L Hct 40.0 L MCV 81.1 MCH 24.3 L MCHC 30.0 L RDW 18.4 H Plt Count 232 MPV 11.2 Neut # (Auto) 12.4 H Lymph # (Auto) 0.9 L Saline # (Auto) 1.1 H Eos # (Auto) 0.0 Baso # (Auto) 0.1 Absolute Nucleated RBC 0.00 Nucleated RBC % 0.0 Sodium 145 Potassium 4.1 Chloride 110 Carbon Dioxide 26 Anion Gap 9.0 BUN 33 H Creatinine 1.5 H Estimated GFR (MDRD) 44 L Glucose 280 H Lactic Acid Calcium 8.9 Phosphorus 2.6 Magnesium 2.4 Total Bilirubin 0.9 AST 17 ALT 18 Alkaline Phosphatase 104 Troponin I High Sens 15.7 Total Protein 6.6 L Albumin 3.4 Globulin 3.2 Albumin/Globulin Ratio 1.1 Urine Color Urine Clarity Urine pH Ur Specific [place] Urine Protein Urine Glucose (UA) Urine Ketones Urine Occult Blood Urine Nitrite Urine Bilirubin Urine Urobilinogen Ur Leukocyte Esterase Urine RBC Urine WBC Ur Squamous Epith Cells Urine Bacteria Urine Casts Urine Mucus Ur Microscopic Review Urine Culture Comments Nasal Adenovirus (PCR) Nasal B. parapertussis DNA (PCR) Nasal Coronavir 229E PCR Nasal Coronavir HKU1 PCR Nasal Coronavir NL63 PCR Nasal Coronavir OC43 PCR Nasal Enterovir/Rhinovir PCR Nasal Influenza B PCR Nasal Influenza A PCR Nasal Parainfluen 1 PCR Nasal Parainfluen 2 PCR Nasal Parainfluen 3 PCR Nasal Parainfluen 4 PCR Nasal RSV (PCR) Nasal B.pertussis DNA PCR Nasal C.pneumoniae (PCR) Gavin Human Metapneumo PCR Nasal M.pneumoniae (PCR) Nasal SARS-CoV-2 (PCR) 02/13/23 02/13/23 02/13/23 15:19 15:27 15:30 WBC RBC Hgb Hct MCV MCH MCHC RDW Plt Count MPV Neut # (Auto) Lymph # (Auto) Saline # (Auto) Eos # (Auto) Baso # (Auto) Absolute Nucleated RBC Nucleated RBC % Sodium Potassium Chloride Carbon Dioxide Anion Gap BUN Creatinine Estimated GFR (MDRD) Glucose Lactic Acid 1.8 Calcium Phosphorus Magnesium Total Bilirubin AST ALT Alkaline Phosphatase Troponin I High Sens Total Protein Albumin Globulin Albumin/Globulin Ratio Urine Color YELLOW Urine Clarity CLEAR Urine pH 5.5 Ur Specific [place] >=1.030 H Urine Protein 30 H Urine Glucose (UA) 500 H Urine Ketones NEGATIVE Urine Occult Blood NEGATIVE Urine Nitrite NEGATIVE Urine Bilirubin NEGATIVE Urine Urobilinogen 0.2 (NORMAL) Ur Leukocyte Esterase NEGATIVE Urine RBC None Seen Urine WBC 0-3 Ur Squamous Epith Cells FEW Squamous Urine Bacteria Few Urine Casts 3-5 Hyaline Casts Urine Mucus Moderate Strands Ur Microscopic Review INDICATED Urine Culture Comments NOT INDICATED Nasal Adenovirus (PCR) NOT DETECTED Nasal B. parapertussis DNA (PCR) NOT DETECTED Nasal Coronavir 229E PCR NOT DETECTED Nasal Coronavir HKU1 PCR NOT DETECTED Nasal Coronavir NL63 PCR NOT DETECTED Nasal Coronavir OC43 PCR NOT DETECTED Nasal Enterovir/Rhinovir PCR NOT DETECTED Nasal Influenza B PCR NOT DETECTED Nasal Influenza A PCR NOT DETECTED Nasal Parainfluen 1 PCR NOT DETECTED Nasal Parainfluen 2 PCR NOT DETECTED Nasal Parainfluen 3 PCR NOT DETECTED Nasal Parainfluen 4 PCR NOT DETECTED Nasal RSV (PCR) NOT DETECTED Nasal B.pertussis DNA PCR NOT DETECTED Nasal C.pneumoniae (PCR) NOT DETECTED Gavin Human Metapneumo PCR NOT DETECTED Nasal M.pneumoniae (PCR) NOT DETECTED Nasal SARS-CoV-2 (PCR) NOT DETECTED - Rads (name of study) CT of the head showing age-related findings without trauma or acute findings. Relevant Findings:: Final report received, EMP independent interpretation of test CT of the cervical spine without traumatic findings Relevant Findings:: Final report received, EMP independent interpretation of test CT of the abdomen pelvis acute L1 left transverse process and 10th and 11th rib fractures Relevant Findings:: Final report received, EMP independent interpretation of test CT of the chest 1.1 cm right middle lobe nodule and left lingular atelectasis Relevant Findings:: Final report received, EMP independent interpretation of test PD Medical Decision Making - ED course ED course: This is an 87-year-old with severe dementia who fell yesterday at the dementia care unit and today is off of his neurologic baseline and is actually quite altered. The supportive of 71 years is at the bedside. She is upset at home place because of the fall in which she feels is poor care.. He has not been recently hospitalized, in contrast to the paramedics report, he was simply admitted to home place because the could no longer take care of him about 2 weeks ago. She notes that he is certainly not at his neurologic baseline right now. We discussed goals of care and she would like at least extensive diagnostics for prognosis initially. Lab work demonstrates a nonspecific leukocytosis on CBC. Mild RODOLFO with hyperglycemia on CMP, no lactic acidosis or elevated troponin. No evidence of UTI. COVID test negative. CTs "crooks scan" demonstrate 2 rib fractures and a left transverse process fracture. The compression fracture is old per the . We discussed the finding of a right middle lobe nodule and potential follow-up but she does not plan to follow-up for that or repeat CT as it is not in the goals of care. She wondered if she could take him home, but he is basically completely bedbound and unresponsive at this point and she is about 88 herself and probably is not capable of caring for her. This is night and it is unlikely we would be able to get any home or palliative care into the home quickly. He will board in the emergency department pending social work consultation in the morning. She confirms that he is DNR and DNI. Subsequently the called again around 8:20 PM. Her goals have changed and she would like him to go back to home placed tomorrow around 10 AM where she plans to subsequently then have him back at home home with palliative care but would like some time to set that up. Departure - Departure Clinical Impression: Encephalopathy, Type 2 diabetes mellitus with complication, without long-term current use of insulin Multiple rib fractures Qualifiers: Encounter type: initial encounter Fracture type: closed Laterality: left Qualified Code(s): S22.42XA - Multiple fractures of ribs, left side, initial encounter for closed fracture Lumbar transverse process fracture Qualifiers: Encounter type: initial encounter Fracture type: closed Qualified Code(s): S32.009A - Unspecified fracture of unspecified lumbar vertebra, initial encounter for closed fracture Dementia Qualifiers: Dementia type: unspecified type Dementia severity: severe Dementia behavioral or psychological symptom: without behavioral, psychotic, or mood disturbance or anxiety Qualified Code(s): F03.C0 - Unspecified dementia, severe, without behavioral disturbance, psychotic disturbance, mood disturbance, and anxiety Condition: Good Record reviewed to determine appropriate education?: Yes Instructions: ED Fx Rib, ED Dementia Caregiver Support Comments: Joey has 2 rib fractures and a transverse process fracture in his back. Otherwise we did not find any traumatic injuries. Follow-up with his primary care physician, next available appointment for consideration for palliative care also consideration for hospice, I believe his dementia is probably severe enough that he would fit criteria for hospice.
[2023-02-13 15:25] LABS: BASOPHILS # (AUTO) 0.1 10^3/uL (0.0-0.1); BASOPHILS % (AUTO) 0.4 %; EOSINOPHILS % (AUTO) 0.1 %; LYMPHOCYTES # (AUTO) 0.9 10^3/uL (1.5-3.5); LYMPHOCYTES % (AUTO) 6.2 %; MEAN CORPUSCULAR HEMOGLOBIN 24.3 pg (27.0-31.0); MEAN CORPUSCULAR VOLUME 81.1 fL (80.0-94.0); MEAN PLATELET VOLUME 11.2 fL (7.4-11.4); MONOCYTES # (AUTO) 1.1 10^3/uL (0.0-1.0); MONOCYTES % (AUTO) 7.4 %; NEUTROPHILS # (AUTO) 12.4 10^3/uL (1.5-6.6); NEUTROPHILS % (AUTO) 85.6 %; PLT - PLATELET COUNT 232 10^3/uL (130-450); RED BLOOD COUNT 4.93 10^6/uL (4.70-6.10); RED CELL DISTRIBUTION WIDTH 18.4 % (12.0-15.0); WHITE BLOOD COUNT 14.4 x10^3/uL (4.8-10.8)
[2023-02-13 15:39] LABS: ALBUMIN 3.4 g/dL (3.2-5.5); ALBUMIN/GLOBULIN RATIO 1.1 (1.0-2.2); BILIRUBIN,TOTAL 0.9 mg/dL (0.2-1.0); CALCIUM 8.9 mg/dL (8.5-10.3); CREATININE 1.5 mg/dL (0.6-1.2); MAGNESIUM 2.4 mg/dL (1.7-2.8); PHOSPHORUS 2.6 mg/dL (2.5-4.6); POTASSIUM 4.1 mmol/L (3.5-5.0); TOTAL PROTEIN 6.6 g/dL (6.7-8.2)
[2023-02-13 15:47] LABS: BILIRUBIN,URINE NEGATIVE (NEGATIVE); GLUCOSE, URINE (UA) 500 mg/dL (NEGATIVE); KETONES,URINE (UA) NEGATIVE (NEGATIVE); LEUKOCYTE ESTERASE, URINE NEGATIVE (NEGATIVE); NITRITE,URINE NEGATIVE (NEGATIVE); OCCULT BLOOD,URINE NEGATIVE (NEGATIVE); PH,URINE 5.5 PH (5.0-7.5); PROTEIN,URINE 30 mg/dL (NEGATIVE); UROBILINOGEN,URINE 0.2 (NORMAL) E.U./dL (NORMAL)
[2023-02-13 15:48] LABS: CLARITY,URINE CLEAR (CLEAR)
[2023-02-13] MEDS ORDERED: iohexoL-300 100 ML VIAL ONE (15:55)
[2023-02-13 16:08] LABS: BACTERIA,URINE Few /HPF (None Seen); CASTS, URINE 3-5 Hyaline Casts /LPF; MUCUS,URINE Moderate Strands; RBC,URINE None Seen /HPF (0-5); SQUAMOUS EPITHELIAL CELL,UR FEW Squamous (<= Few); WBC,URINE 0-3 /HPF (0-3)
[2023-02-13 16:39] LABS: B. PARAPERTUSSIS- RESP PCR PAN NOT DETECTED; B. PERTUSSIS- RESP PCR PANEL NOT DETECTED; C. PNEUMONIAE- RESP PCR PANEL NOT DETECTED; CORONAVIRUS 229E-RESP PCR NOT DETECTED; CORONAVIRUS HKU1-RESP PCR NOT DETECTED; CORONAVIRUS NL63-RESP PCR NOT DETECTED; CORONAVIRUS OC43-RESP PCR NOT DETECTED; HUMAN METAPNEUMOVIRUS NOT DETECTED; INFLUENZA A- RESP PCR PANEL NOT DETECTED; INFLUENZA B - RESP PCR PANEL NOT DETECTED; M. PNEUMONIAE- RESP PCR PANEL NOT DETECTED; PARAINFLUENZA VIRUS 1 NOT DETECTED; PARAINFLUENZA VIRUS 2 NOT DETECTED; PARAINFLUENZA VIRUS 3 NOT DETECTED; PARAINFLUENZA VIRUS 4 NOT DETECTED; RHINOVIRUS/ENTEROVIRUS NOT DETECTED; RSV- RESP PCR PANEL NOT DETECTED; SARS-CoV-2 -RESP PCR PANEL NOT DETECTED
[2023-02-13] MEDS ORDERED: iohexoL-300 100 ML VIAL IVP ONE (16:59)
[2023-02-13] MEDS ORDERED: MORPHINE 2 MG/ML CARPUJECT IVP STA (17:05)
[2023-02-13] MEDS ORDERED: LORazepam 2 MG/ML VIAL IVP STA (17:05)
--- NOTE | 2023-02-13 17:16 | CT Report ---
PROCEDURE: HEAD WO INDICATIONS: fall, trauma, altered TECHNIQUE: Noncontrast 4.5 mm thick angled axial sections acquired from the foramen magnum to the vertex. For r adiation dose reduction, the following was used: automated exposure control, adjustment of mA and/or kV according to patient size. COMPARISON: None. FINDINGS: Image quality: Excellent. CSF spaces: Basal cisterns are patent. No extra-axial fluid collections. Ventricles are normal in size and shape. Brain: No midline shift. No intracranial masses or hemorrhage. No mass effect. Medel-white matter i nterface is normal. There cerebral volume loss for age with resultant ventricular and sulcal prominen ce. There are periventricular and deep white matter chronic small vessel ischemic changes. Atheroscle rotic calcifications are noted in the intracranial segments of the bilateral internal carotid arterie s. Skull and face: Calvarium and visualized facial bones are intact, without suspicious lesions. Sinuses: Visualized sinuses and mastoids are clear. IMPRESSION: CT head without acute intracranial abnormalities. Age-related senescent changes and sequela of chronic small vessel ischemic disease. No acute calvarial fractures. Reviewed by: Get Dominguez MD on 02/13/2023 5:14 PM PDT Approved by: Get Dominguez MD on 02/13/2023 5:14 PM PDT Station ID: [id number]
--- NOTE | 2023-02-13 17:18 | CT Report ---
PROCEDURE: CERVICAL SPINE WO INDICATIONS: fall, trauma, altered TECHNIQUE: Noncontrast 3 mm thick sections acquired from the skull base to the T4 level. Sagittal and coronal r eformats were then constructed. For radiation dose reduction, the following was used: automated exp osure control, adjustment of mA and/or kV according to patient size. COMPARISON: None. FINDINGS: Image quality: Image degraded by motion artifact. Bones: No acute fractures or dislocations. No acute compression fractures of the vertebral bodies. Craniocervical junction is intact. C1-C2 relationship is preserved. Visualized superior ribs are inta ct. Moderate multilevel cervical spondylosis. Soft tissues: Prevertebral soft tissues are normal in thickness. No paravertebral hematomas. No ap ical pneumothoraces. IMPRESSION: CT cervical spine without acute fracture or traumatic malalignment. Multilevel cervical spondylosis. Reviewed by: Get Dominguez MD on 02/13/2023 5:17 PM PDT Approved by: Get Dominguez MD on 02/13/2023 5:17 PM PDT Station ID: [id number]
--- NOTE | 2023-02-13 17:29 | CT Report ---
PROCEDURE: CHEST W INDICATIONS: fall, trauma, altered CONTRAST:100ml Omnipaque 300 TECHNIQUE: After the administration of intravenous contrast, 1 mm axial images were acquired from the pulmonary apices through the posterior costophrenic angles. Axial 5 mm soft tissue kernel reconstructions were performed as well as 8 mm axial MIP and coronal and sagittal 5 mm reformations. For radiation dose reduction, the following was used: automated exposure control, adjustment of mA and/or kV according to patient size. COMPARISON: None. FINDINGS: Image quality: Image degraded by respiratory motion artifact. Lungs and pleura: No acute air space opacities. There is a 1.1 cm nodule in the anterior aspect of the right middle lobe. This is seen on image 211/series 3. Upper lobe predominant pulmonary emphysem atous changes are present. Left upper lobe scarring. Patchy consolidation in the posterior lingula (i mage 224/series 3). Bibasilar atelectasis. No pleural effusions or pneumothorax. Central and peripheral airways are patent and normal in caliber. Mediastinum: Heart size is normal. Dense atherosclerotic calcifications. No pericardial effusion. No mediastinal adenopathy by size criteria. No hilar adenopathy. Thoracic aorta and central pulmonary arteries are normal in size. Esophagus is normal in caliber. Dhkdo-yszefdcj-[id number] hiatal hernia. Bones and chest wall: No suspicious bony lesions. No acute vertebral body compression fractures. Chronic appearing anterior compression deformities of the mid and lower thoracic spine. Multilevel t horacic spondylosis. No axillary or supraclavicular adenopathy by size criteria. Thyroid is unremarkable in appearance. Abdomen: Visualized upper abdominal solid organs appear unremarkable. Visualized portions of jose l in the upper abdomen appear unremarkable. Please see separate report from dedicated CT of the abdomen and pelvis obtained same day. IMPRESSION: CT chest without acute cardiopulmonary abnormalities. No evidence for acute traumatic injury. There is a 1.1 cm right middle lobe nodule. Recommend follow-up CT chest in 3 months to document stab ility. Patchy posterior lingular consolidation likely representing atelectasis. Attention to this region on follow-up chest CT should also be made. Other chronic findings as above. CLINICAL RECOMMENDATION STATEMENTS: In patients <35 years with an ITN detected on CT, MRI, or extrathyroidal ultrasound, the Committee re commends further evaluation with dedicated thyroid ultrasound if the nodule is "e1 cm and has no susp icious imaging features, and if the patient has normal life expectancy. In patients "e35 years with an ITN detected on CT, MRI, or extrathyroidal ultrasound, the Committee r ecommends further evaluation with dedicated thyroid ultrasound if the nodule is "e1.5 cm and has no s uspicious imaging features, and if the patient has normal life expectancy. (ACR, 2014) Reviewed by: Get Dominguez MD on 02/13/2023 5:28 PM PDT Approved by: Get Dominguez MD on 02/13/2023 5:28 PM PDT Station ID: [id number]
--- NOTE | 2023-02-13 17:40 | CT Report ---
PROCEDURE: ABDOMEN/PELVIS W INDICATIONS: fall, trauma, altered CONTRAST: 100ml Omnipaque 300 TECHNIQUE: After the administration of weight appropriate dose of intravenous contrast, 5 mm thick sections acqu ired from the diaphragms to the symphysis. 5 mm thick coronal and sagittal reformats were acquired. For radiation dose reduction, the following was used: automated exposure control, adjustment of mA and/or kV according to patient size. COMPARISON: None. FINDINGS: Image quality: Image degraded by motion artifact Lung bases: 11 mm right middle lobe nodule better evaluated on dedicated CT of the chest from same d ay. Irregular posterior lingular consolidation also better evaluated on dedicated chest CT from [facility] same day. Bibasilar atelectasis. Gxnxd-guxcjket-gijdp hiatal hernia. Heart: Heart size is normal. Dense atherosclerotic calcifications of the coronary arteries. ABDOMEN: Liver: Hepatic hypodensity in the right hepatic lobe likely representing a hemangioma or cyst. No ev idence for acute traumatic injury to the liver parenchyma Gallbladder:Unremarkable. Biliary ducts: Unremarkable. No biliary ductal dilatation. Pancreas: Pancreas is normal in contour and homogeneous in enhancement. No peripancreatic inflammati on. Spleen: No evidence for splenic injury. Adrenal Glands: No adrenal nodules. Kidneys and Ureters: Bilateral kidneys demonstrate normal size and enhancement. No hydronephrosis. Bilateral ureters are normal in course and caliber. No perinephric or periureteral stranding. Scatte red bilateral renal hypodensities are incompletely characterized but likely represent renal cysts. No evidence to suggest acute traumatic injury to the renal parenchyma. Stomach and Bowel: Stomach, small bowel loops, and colon are unremarkable. Peritoneum: No abnormal intraperitoneal fluid. No free air. Ventral Wall: No hernia. Abdominal Nodes: No retroperitoneal or mesenteric adenopathy by size criteria. Vessels: Aorta and inferior vena cava are normal in size. Moderate atherosclerotic calcifications seen throughout the abdominal aorta and iliac vessels. PELVIS: Pelvic Organs: Unremarkable as visualized. Bladder: Unremarkable. Urinary bladder wall is normal for degree of distention. Pelvic Nodes: No pathologically enlarged pelvic lymph nodes. Miscellaneous: No inguinal hernias seen. Bones: Status post right total hip arthroplasty. No CT evidence for acute hardware consultation. Min imally displaced acute fracture involving the left L1 transverse process. Mildly displaced acute post erior left 11th and 10th rib fractures. Age-indeterminate but probably chronic appearing anterior co mpression deformity of L1. There is mild loss of anterior vertebral body height. No significant parav ertebral soft tissue edema or stranding. Moderate multilevel spondylosis of the imaged spine. IMPRESSION: 1. Acute fractures involving the left L1 transverse process and posterior left 11th and left 10th rib s. 2. Age-indeterminate, but likely chronic anterior compression deformity at L1. Recommend clinical cor relation. If there is high clinical suspicion for acute compression fracture, consider further evalua tion with MRI. 3. No acute traumatic injury to the solid or hollow organs of the abdomen or pelvis. Other chronic findings as above. Reviewed by: Get Dominguez MD on 02/13/2023 5:39 PM PDT Approved by: Get Dominguez MD on 02/13/2023 5:39 PM PDT Station ID: [id number]
[2023-02-13] MEDS ORDERED: ACETAMINOPHEN 500 MG TABLET PO PRN (17:51)
[2023-02-13] MEDS ORDERED: ONDANSETRON 4 MG/2 ML VIAL IVP PRN (17:51)
[2023-02-14] MEDS ORDERED: MORPHINE 2 MG/ML CARPUJECT IM STA (06:20)
[2023-02-14] MEDS ORDERED: PANTOPRAZOLE 40 MG TABLET PO SCH (07:00)
--- NOTE | 2023-02-14 11:03 | ED Physician Documentation ---
ED Addendum - Addendum Addendum: Patient signed out to me by overnight physician. Patient was seen yesterday in the emergency department for a fall and found to have rib fractures. He is boarding in the emergency department overnight and scheduled to go back to home place this morning at 10:00. Plan is likely for the to try and enroll the patient into hospice given his advanced dementia.Patient has been sleeping during my shift. Transport is here to take the patient back to [facility]. Departure - Departure Disposition: 01 Home, Self Care Clinical Impression: Encephalopathy, Type 2 diabetes mellitus with complication, without long-term current use of insulin Multiple rib fractures Qualifiers: Encounter type: initial encounter Fracture type: closed Laterality: left Qualified Code(s): S22.42XA - Multiple fractures of ribs, left side, initial encounter for closed fracture Lumbar transverse process fracture Qualifiers: Encounter type: initial encounter Fracture type: closed Qualified Code(s): S32.009A - Unspecified fracture of unspecified lumbar vertebra, initial encounter for closed fracture Dementia Qualifiers: Dementia type: unspecified type Dementia severity: severe Dementia behavioral or psychological symptom: without behavioral, psychotic, or mood disturbance or anxiety Qualified Code(s): F03.C0 - Unspecified dementia, severe, without behavioral disturbance, psychotic disturbance, mood disturbance, and anxiety Condition: Good Instructions: ED Dementia Caregiver Support, ED Fx Rib Comments: Joey has 2 rib fractures and a transverse process fracture in his back. Otherwise we did not find any traumatic injuries. Follow-up with his primary care physician, next available appointment for consideration for palliative care also consideration for hospice, I believe his dementia is probably severe enough that he would fit criteria for hospice.
[2023-02-14 11:23] VITALS: BP 140/104
--- NOTE | 2023-02-14 13:33 | ED Physician Documentation ---
ED Addendum - Addendum Addendum: 02/14/23 13:32 Subsequent to discharge at the request of the I did put in for an outpatient hospice consult and emailed Dr. Coyle. Also sent a prescription to [facility] for morphine oral solution 10 mg per 0.5 mL's: 0.25 mL p.o. every 2 hours as needed pain number 50 mL.
== END 2023-02-14 11:18 | disposition home or self-care (01) ==
LOC: EDUNIT# → ED 14:54
DX: G93.40 Encephalopathy, unspecified (principal); S22.42XA Multiple fractures of ribs, left side, initial encounter for closed fracture; S32.009A Unspecified fracture of unspecified lumbar vertebra, initial encounter for closed fracture; E11.65 Type 2 diabetes mellitus with hyperglycemia; Z79.84 Long term (current) use of oral hypoglycemic drugs; N17.9 Acute kidney failure, unspecified; R91.1 Solitary pulmonary nodule; F03.C0 Unspecified dementia, severe, without behavioral disturbance, psychotic disturbance, mood disturbance, and anxiety; R41.0 Disorientation, unspecified; Z76.4 Other boarder to healthcare facility; Z20.822 Contact with and (suspected) exposure to COVID-19; Z66 Do not resuscitate
CPT/HCPCS: 36415; 51701; 70450; 71260; 72125; 74177; 80053; 81001; 83605; 83735; 84100; 84484; 85025; 87040; 87633; 93005; 96372; 96374; 99284; J2060; Q9967; 81003; 87086

== ENCOUNTER 2023-02-14 11:20 | Outpatient (CLI) | payer MEDICARE | END 2023-02-14 23:59 | disposition home or self-care (01) | LOC: EMS 11:20 | PROVIDERS: ATTEND Emergency Medicine | DX: R46.4 Slowness and poor responsiveness (principal); S22.39XA Fracture of one rib, unspecified side, initial encounter for closed fracture; X58.XXXA Exposure to other specified factors, initial encounter | CPT/HCPCS: A0425; A0428 ==